=== PATIENT | female | born 1955 | race Caucasian/White ===

== ENCOUNTER 2016-03-18 10:58 | Inpatient (IN) | payer BC ==
[~2016-03-18] VITALS: Ht 157.5 cm; Wt 65.1 kg
[2016-03-18] MEDS ORDERED: ONDANSETRON 4 MG INJ IV STA (12:31)
[2016-03-18] MEDS ORDERED: SOD CHLORIDE 0.9% 1,000 ML IV STA (12:31)
[2016-03-18] MEDS ORDERED: morphine 4 MG/ML VIAL IV STA (12:31)
--- NOTE | 2016-03-18 12:37 | ERA ---
ER Documentation Chief Complaint Date/Time DATE: 03/18/16 TIME: 12:33 Chief Complaint LOWER ABDOMINAL PAIN X3 DAYS WITH DIARRHEA HPI Patient is a 60-year-old -[place] female who is brought in by her daughter who tells me that she was admitted in another facility where she was diagnosed with adenocarcinoma of the sigmoid colon. She was apparently also diagnosed with C. difficile colitis as well as H pylori. She is currently being treated for both with oral antibiotics. She has been brought here for increasing abdominal pain which she describes as being in the lower abdomen with increasing diarrhea. The daughter states she has never had a fever despite all of the above. She says the patient is not eating well however she has not had any nausea or vomiting. There is not been any blood in the stools. They did not start any chemo nor have they seen any oncologist. They said that the initial hospital he went to where they were diagnosed with the adenocarcinoma was not the hospital where they would be receiving treatment which is why they were discharged from the facility. This is the primary facility which they would receive treatment which is why they are here today. Nothing seems to improve her symptoms eating seems to make her symptoms worse. And the remainder of the systems are negative. ROS All systems reviewed and are negative except as per history of present illness. Medications Home Meds Reported Medications Amoxicillin/Potassium Clav (Amox-Clav 875-125 mg Tablet) 875-125 mg Tab, 1 TAB PO BID, #20 TAB 03/18/16 Clarithromycin* (Clarithromycin*) 500 Mg Tablet, 500 MG PO BID, TAB 03/18/16 Metronidazole* (Metronidazole*) 500 Mg Tablet, 500 MG PO TID, TAB 03/18/16 Polyethylene Glycol* (Miralax*) 17 Gm Powd.pack, 17 GM PO DAILY, #30 PACKET 03/18/16 Pantoprazole* (Protonix*) 40 Mg Tablet.dr, 40 MG PO DAILY, TAB 03/18/16 Allergies Allergies: Coded Allergies: No Known Allergy (Unverified , 03/18/16) Physical Exam Vitals Vital Signs Date Time Temp Pulse Resp B/P Pulse Ox O2 Delivery O2 Flow Rate FiO2 03/18/16 11:12 97.7 90 20 150/66 98 Physical Exam Const: [] Well-developed well-nourished -[place]aur[place] female lying on the bed in no acute distress Head: Atraumatic normocephalic Eyes: Normal Conjunctiva ENT: Normal External Ears, Nose and Mouth. Neck: Full range of motion..~ No meningismus. Resp: Clear to auscultation bilaterally Cardio: Regular rate and rhythm, no murmurs Abd: Soft, moderate tenderness to palpation in the left lower quadrant and suprapubic region with rebound noted, no bowel sounds auscultated, no masses Skin: No petechiae or rashes Back: No midline or flank tenderness Ext: No cyanosis, or edema Neur: Awake and alert Psych: Normal Mood and Affect Result Diagram: 03/18/16 1300 03/18/16 1300 Results 24 hrs Laboratory Tests Test 03/18/16 13:00 03/18/16 13:35 Alanine Aminotransferase (ALT/SGPT) 24IU/L Albumin 3.9g/dl Albumin/Globulin Ratio 0.97 Alkaline Phosphatase 65IU/L Anion Gap 19 Aspartate Amino Transf (AST/SGOT) 30IU/L Basophils # 0.010^3/ul Basophils % 0.7% Blood Morphology Comment Blood Urea Nitrogen 10mg/dl Calcium Level 9.1mg/dl Carbon Dioxide Level 25mmol/L Chloride Level 105mmol/L Creatinine 0.62mg/dl Direct Bilirubin 0.00mg/dl Eosinophils # 0.110^3/ul Eosinophils % 2.0% Globulin 4.00g/dl Glucose Level 78mg/dl Hematocrit 39.9% Hemoglobin 13.2g/dl Indirect Bilirubin 0.1mg/dl Lipase 600U/L Lymphocytes # 1.910^3/ul Lymphocytes % 40.6% Mean Corpuscular Hemoglobin 29.7pg Mean Corpuscular Hemoglobin Concent 33.2g/dl Mean Corpuscular Volume 89.3fl Mean Platelet Volume 8.9fl Monocytes # 0.510^3/ul Monocytes % 10.7% Neutrophils # 2.210^3/ul Neutrophils % 46.0% Nucleated Red Blood Cells # 0.010^3/ul Nucleated Red Blood Cells % 0.0/100WBC Platelet Count 87250^3/UL Potassium Level 3.8mmol/L Red Blood Count 4.4610^6/ul Red Cell Distribution Width 15.3% Sodium Level 145mmol/L Total Bilirubin 0.1mg/dl Total Protein 7.9g/dl White Blood Count 4.810^3/ul Urine Bacteria RARE Urine Bilirubin NEGATIVE Urine Clarity CLEAR Urine Color YELLOW Urine Epithelial Cells RARE Urine Glucose NEGATIVE% Urine Hemoglobin TRACE Urine Ketones NEGATIVE Urine Leukocyte Esterase NEGATIVE Urine Microscopic RBC 0-2/HPF Urine Microscopic WBC 0-2/HPF Urine Nitrite NEGATIVE Urine Specific [place] >=1.030 Urine Total Protein NEGATIVE Urine Urobilinogen 0.2 E.U./dL Urine pH 6.5 Current Medications Medications (Trade) Dose Ordered Sig/Malathi Route PRN Reason Start Time Stop Time Status Last Admin Dose Admin Sodium Chloride (NS) 1,000 ml @ 1,000 mls/hr Q1H STAT IV 03/18/16 12:31 03/18/16 13:30 DC 03/18/16 13:47 Morphine Sulfate (morphine) 4 mg ONCE STAT IV 03/18/16 12:31 03/18/16 12:34 DC Ondansetron HCl 4 mg 4 mg ONCE STAT IV 03/18/16 12:31 03/18/16 12:34 DC Ertapenem/Sodium Chloride (Invanz/NS) 100 ml @ 200 mls/hr ONCE ONCE IVPB 03/18/16 13:00 03/18/16 13:29 DC 03/18/16 16:09 IV Flush 10 ml 10 ml STK-MED ONCE .ROUTE 03/18/16 13:36 03/18/16 13:37 DC 03/18/16 13:36 Sodium Chloride (NS) 100 ml @ ud STK-MED ONCE .ROUTE 03/18/16 13:36 03/18/16 13:37 DC 03/18/16 13:36 Iohexol (Omnipaque 300mg/ ml) 150 ml STK-MED ONCE .ROUTE 03/18/16 13:36 03/18/16 13:37 DC 03/18/16 13:36 Procedures/MDM Differential includes but is not limited to toxic C. difficile colitis, symptomatic adenocarcinoma of the colon, bowel obstruction, sepsis, perforated colon, peritonitis CT of the abdomen shows the mass in the rectosigmoid region with some stranding around this area but no perforation or free air. She does not have a bowel obstruction. 1635: Patient's examination is unchanged. I have consulted the hospitalist to have her admitted to the hospital for further evaluation and treatment of her mass. Departure Diagnosis: Primary Impression: Rectal mass Additional Impressions: Diarrhea Qualified Code: A09 - Diarrhea of infectious origin C. difficile colitis Dehydration Breast mass in female Abdominal pain Qualified Code: R10.32 - Left lower quadrant pain Condition: SULEIMAN Rubio Mar 18, 2016 12:37
[2016-03-18] MEDS ORDERED: PANT40TA3 PO (12:53)
[2016-03-18] MEDS ORDERED: POLY17PO6 PO (12:53)
[2016-03-18] MEDS ORDERED: METR500T14 PO (12:56)
[2016-03-18] MEDS ORDERED: AMOX1TAB10 PO (12:57)
[2016-03-18] MEDS ORDERED: CLAR500T PO (12:57)
[2016-03-18] MEDS ORDERED: ERTAPENEM SODIUM 1 GM in SOD CHLORIDE 0.9% 100 ML IVPB ONE (13:00)
[2016-03-18 13:14] LABS: BASOPHILS % 0.7 % (0.0-2.0); EOSINOPHILS # 0.1 10^3/ul (0.0-0.5); HEMATOCRIT 39.9 % (37.0-47.0); HEMOGLOBIN 13.2 g/dl (12.0-16.0); LYMPHOCYTES # 1.9 10^3/ul (0.8-2.9); LYMPHOCYTES % 40.6 % (15.0-51.0); MEAN CORPUSCULAR HEMOGLOBIN 29.7 pg (29.0-33.0); MEAN CORPUSCULAR HGB CONC 33.2 g/dl (32.0-37.0); MEAN CORPUSCULAR VOLUME 89.3 fl (82.0-101.0); MEAN PLATELET VOLUME 8.9 fl (7.4-10.4); MONOCYTE # 0.5 10^3/ul (0.3-0.9); MONOCYTES % 10.7 % (0.0-11.0); NEUTROPHIL # 2.2 10^3/ul (1.6-7.5); PLATELET COUNT 273 10^3/UL (140-440); RED BLOOD COUNT 4.46 10^6/ul (4.20-5.40); RED CELL DISTRIBUTION WIDTH 15.3 % (11.5-14.5); UNCORRECTED WBC 4.8 10^3/ul (4.8-10.8); WHITE BLOOD COUNT 4.8 10^3/ul (4.8-10.8)
[2016-03-18 13:23] LABS: ALBUMIN 3.9 g/dl (3.3-4.9)
[2016-03-18 13:24] LABS: POTASSIUM 3.8 mmol/L (3.5-5.1)
[2016-03-18 13:26] LABS: ALBUMIN/GLOBULIN RATIO 0.97; BILIRUBIN,INDIRECT 0.1 mg/dl (0-1.1); BILIRUBIN,TOTAL 0.1 mg/dl (0.2-1.3); CREATININE 0.62 mg/dl (0.44-1.00); TOTAL PROTEIN 7.9 g/dl (6.1-8.1)
[2016-03-18 13:27] LABS: CALCIUM 9.1 mg/dl (8.4-10.2); CONDITION 1; LH ANALYZER COMMENTS 1
[2016-03-18] MEDS ORDERED: IOHEXOL 300MG/ML 150 ML BTL ONE (13:36)
[2016-03-18] MEDS ORDERED: SOD CHLORIDE 0.9% 100 ML ONE (13:36)
[2016-03-18 14:03] LABS: ADD UMIC YES; URINE BILIRUBIN (Dip) NEGATIVE (NEGATIVE); URINE BLOOD (Dip) TRACE (NEGATIVE); URINE COLOR YELLOW (YELLOW); URINE GLUCOSE (Dip) NEGATIVE (NEGATIVE); URINE KETONES (Dip) NEGATIVE (NEGATIVE); URINE LEUKOCYTE ESTERASE (Dip) NEGATIVE (NEGATIVE); URINE NITRITE (Dip) NEGATIVE (NEGATIVE); URINE TOTAL PROTEIN (Dip) NEGATIVE (NEGATIVE); URINE UROBILINOGEN (Dip) 0.2 E.U./dL (0.1-1.0)
[2016-03-18 14:23] LABS: BACTERIA,URINE RARE; URINE RBCS 0-2 /HPF (0)
--- NOTE | 2016-03-18 14:56 | RADRPT ---
PROCEDURE: CT scan of the abdomen and pelvis with and without IV contrast. CLINICAL INDICATION: Lower abdominal pain for 3 days with diarrhea. History of sigmoid cancer. TECHNIQUE: Thin section axial, coronal and sagittal images were performed through the abdomen and pelvis without contrast and then following the injection of 90 cc of Isovue 370. Low-dose protocol i maging was utilized. One or more of the following dose reduction techniques were used: - Automated exposure control. - Adjustment of the mA and/or kV according to patient size. Use of iterative reconstruction technique. Radiation Dose: CTDI: 15 and DLP: 752 COMPARISON: No. FINDINGS: Soft tissues: There is a 1 x 1.5 cm well marginated mass in the outer left breast. A bilateral malka mogram is recommended for evaluation. Lungs and pleural space:There are peripheral areas of atelectasis in the right left lower lobes. N o pulmonary nodule or alveolar infiltrate is identified. There is no evidence of a pleural effusion . Heart: Normal. No pericardial effusion is identified. The liver, common bile duct and gallbladder: The liver, gallbladder, hepatic and portal veins are no rmal. No intrahepatic biliary ductal dilatation is identified. No hepatic mass is present. Pancreas: Normal. The extrahepatic common bile duct is dilated measuring 8.5 mm. Gastrointestinal: There is no evidence of hiatal hernia. The stomach is incompletely distended and this is thought to account for gastric wall thickening. The small bowel loops are normal. There is fluid in the distal small bowel loops and in the colon. No mechanical small-bowel obstruction is i dentified. There is radiopaque material in the ascending colon and near the cecum. There is fecal m aterial in the ascending and transverse colon. The vermiform appendix is not clearly visualized. Th ere is no evidence of diverticulosis or diverticulitis. There is asymmetry and mucosal thickening in the distal sigmoid and proximal portion of the rectal a mpulla. Further evaluation of this area is recommended. This area can be further evaluated with an MRI of the pelvis for PET CT scan if clinically indicated. There is stranding in the fat adjacent t o the rectal ampulla and proximal sigmoid colon. There is no evidence of microperforation. Kidneys and bladder : Normal. There is no evidence of a solid mass or hydronephrosis involving eith er kidney. The urinary bladder is normal with no bladder wall thickening identified. Adrenal glands: Normal. Spleen: Normal. Lymph nodes: No enlarged periportal, retroperitoneal, mesenteric, pelvic sidewall or inguinal lymph nodes are identified. Reproductive system: The uterus is unremarkable. No abnormal adnexal masses are identified. Bony elements: There are degenerative osteophytes in the thoracic and lumbar spine. No bone metasta sis is identified. There are degenerative changes in the articular facets at L4-5 and L5-S1. Vasculature: There are vascular calcifications in the common iliac arteries and abdominal aorta. Th ere is no evidence of an aneurysm. IMPRESSION: 1. Dilatation of the extrahepatic common bile duct which measures 8.5 mm. No pancreatic masses raya ntified. An MRCP or ERCP may be helpful in further evaluation. 2. There is a mass in the area of the rectosigmoid colon with serosal stranding consistent with a k nown history of sigmoid cancer. More detailed evaluation of the PET CT scan or MRI of the pelvis can be performed if clinically indicated. 3. 1.5 cm mass in the left breast. Further evaluation with a targeted left breast sonogram and/or mammogram is recommended. 4. There are plate-like areas of atelectasis or parenchymal scarring in the bases of the lungs. No pulmonary, bony or hepatic metastases are identified. Findings were phoned to Dr. Barragan. RPTAT:AAJJ Physician Lito Date Time Electronically viewed and signed by Physician Lito on 03/18/2016 14:56 /
[2016-03-18 16:58] VITALS: TEMP 97.9
[2016-03-18] MEDS ORDERED: ONDANSETRON 4 MG INJ IV PRN ×2 (17:00→22:30)
[2016-03-18] MEDS ORDERED: ACETAMINOPHEN 325 MG TAB PO PRN (17:00)
[2016-03-18 18:40] VITALS: BP 134/66; PULSE 85; RESP 18
[2016-03-18 19:02] VITALS: Ht 157.5 cm; Wt 65.1 kg
[2016-03-18 20:34] VITALS: BP 136/69; RESP 21
[2016-03-18] MEDS ORDERED: AMOXICILLIN/CLAV 875 MG TAB PO SCH (21:00)
[2016-03-18] MEDS ORDERED: SOD CHLORIDE 0.9% 1,000 ML IV SCH (22:30)
[2016-03-18] MEDS ORDERED: morphine 2 MG INJ IV PRN (22:30)
[2016-03-18] MEDS: CLARITHROMYCIN 500 MG TAB PO SCH (22:44)
[2016-03-18] MEDS: metroNIDAZOLE 500 MG TAB PO SCH (22:44)
[2016-03-18] MEDS: ONDANSETRON 4 MG INJ IV PRN (23:11)
[2016-03-18] MEDS: FAMOTIDINE 20 MG INJ IV SCH (23:11)
[2016-03-18] MEDS ORDERED: AMOXICILLIN/CLAV 875 MG TAB PO ONE (23:30)
[2016-03-19] MEDS: metroNIDAZOLE 500 MG TAB PO SCH ×3 (06:04→22:11)
[2016-03-19] MEDS: PANTOPRAZOLE (EC) 40 MG TAB PO SCH (06:04)
[2016-03-19 06:08] LABS: POTASSIUM 3.6 mmol/L (3.5-5.1)
[2016-03-19 06:09] LABS: BILIRUBIN,INDIRECT 0.3 mg/dl (0-1.1); BILIRUBIN,TOTAL 0.3 mg/dl (0.2-1.3); CREATININE 0.62 mg/dl (0.44-1.00)
[2016-03-19 06:10] LABS: ALBUMIN/GLOBULIN RATIO 0.9; CALCIUM 8.5 mg/dl (8.4-10.2); TOTAL PROTEIN 6.3 g/dl (6.1-8.1)
[2016-03-19 06:22] LABS: BASOPHILS % 0.8 % (0.0-2.0); EOSINOPHILS # 0.1 10^3/ul (0.0-0.5); EOSINOPHILS % 2.7 % (0.0-7.0); HEMATOCRIT 35.4 % (37.0-47.0); LYMPHOCYTES # 1.8 10^3/ul (0.8-2.9); LYMPHOCYTES % 45.6 % (15.0-51.0); MEAN CORPUSCULAR HEMOGLOBIN 30.1 pg (29.0-33.0); MEAN CORPUSCULAR HGB CONC 33.9 g/dl (32.0-37.0); MEAN PLATELET VOLUME 8.9 fl (7.4-10.4); MONOCYTE # 0.4 10^3/ul (0.3-0.9); MONOCYTES % 10.7 % (0.0-11.0); NEUTROPHIL # 1.6 10^3/ul (1.6-7.5); NEUTROPHILS % 40.2 % (39.0-77.0); PLATELET COUNT 239 10^3/UL (140-440); RED BLOOD COUNT 3.98 10^6/ul (4.20-5.40)
[2016-03-19 06:27] LABS: CONDITION 1; LH ANALYZER COMMENTS 1
[2016-03-19 08:24] VITALS: BP 129/63; RESP 16
--- NOTE | 2016-03-19 08:42 | HP ---
DATE OF ADMISSION: 03/18/2016 TIME SEEN: 2500 CHIEF COMPLAINT: Abdominal pain and diarrhea. HISTORY OF PRESENT ILLNESS: The patient is a 60-year-old female with a history of recently diagnose d colon cancer, C difficile, sigmoid microperforation, left breast mass, and subclinical hypothyroid ism who presented to the emergency department with abdominal pain and diarrhea. The patient was rec ently admitted at the outside facility where she was diagnosed with adenocarcinoma of the sigmoid co keith as well as C diff and H pylori. The patient was accompanied with her daughter who provided hist ory to the ER physician. Currently, the patient also has decreased appetite and generalized weaknes s. Also reported nausea, but no vomiting. The patient has not been started on chemo nor does she h ave an oncologist. Reportedly, in the initial hospital that the patient was diagnosed with cancer, the family said were not going to be where she was going to get treatment, and as such, the patient either left the hospital or discharged, and she came here to [facility] for evaluation. They also stated t his would be the hospital where she was capitated at, and they think this is where she should receiv e the treatment and that is why they are here. When she presented to the ER, her blood pressure was 150/66, heart rate 90, respiratory rate 20, tem perature 97.7, oxygen saturation 98% on room air. LABORATORY: Sodium 145. Otherwise, CBC and CMP are within normal limits. Her lipase is 600. IMAGING: CT abdomen and pelvis with and without IV contrast shows dilatation of the extrahepatic co mmon bile duct which measures 8.5 mm. There is a mass in the area of the rectosigmoid colon with se sera stranding consistent with a known history of sigmoid cancer. Also, a 1.5 cm mass in the left breast was noted. Also, there are plate-like areas of atelectasis or parenchymal scarring in the ba se of the lungs noted with no pulmonary, bony, or hepatic metastasis identified. REVIEW OF SYSTEMS: A 12-point review was performed, negative except as mentioned in the HPI. PAST MEDICAL HISTORY: As per HPI. PAST SURGICAL HISTORY: Cholecystectomy and appendectomy. SOCIAL HISTORY: Denied a history of tobacco, alcohol, or illicit drug use. ALLERGIES: NO KNOWN DRUG ALLERGIES. HOME MEDICATIONS: 1. Augmentin. 2. Clarithromycin 3. Flagyl. 4. Protonix. 5. MiraLax. PHYSICAL EXAMINATION: VITAL SIGNS: Stable. GENERAL: The patient appears somewhat week/sleepy, but arousable, not in any acute distress. HEENT: No obvious head deformity. Pupils are reactive to light. Extraocular muscles intact. CARDIOVASCULAR: Regular rate and rhythm. No extra sounds. LUNGS: Clear. ABDOMEN: Soft. There is tenderness to palpation diffusely, but mainly in the left lower quadrant a edna. No rigidity. There are positive bowel sounds. EXTREMITIES: No edema. LABORATORY: Pertinent positives as mentioned in the HPI. IMAGING: CT abdomen and pelvis with and without IV contrast with results as mentioned in the HPI. IMPRESSION: 1. Recently diagnosed colon cancer. 2. Recently diagnosed Clostridium difficile colitis. 3. Diarrhea, secondary to Clostridium difficile. 4. Abdominal pain, secondary to colon cancer and Clostridium difficile and possibly pancreatitis. 5. Acute pancreatitis, with a lipase of 600. 6. Left breast mass. 7. Recently diagnosed Helicobacter pylori, currently undergoing treatment. PLAN: Will place on oncology consult. She will also be treated for C diff and continued with her h ome antibiotic to finish her H pylori treatment. We will provide pain medication and antiemetics as needed. The patient has already been initiated on a diet, so if she tolerates it, she will be cont inued, but if not, we are just going to hold and keep her n.p.o., especially given the elevated lipa se and the concern for pancreatitis. Her left breast mass along with her colon cancer is to be addr essed by oncologist. We will provide pain medication and antiemetics as needed. Further workup and management per clinical course. Dictated By: JACKIE MARQUES/JIGAR Conf#: [id number] DID#: [id number]
[2016-03-19] MEDS: POLYETHYLENE GLYCOL 17 GM PACKET PO SCH (09:05)
[2016-03-19] MEDS: CLARITHROMYCIN 500 MG TAB PO SCH ×2 (09:05→20:59)
[2016-03-19] MEDS: AMOXICILLIN/CLAV 875 MG TAB PO SCH ×2 (09:06→20:59)
[2016-03-19] MEDS: FAMOTIDINE 20 MG INJ IV SCH (09:06)
--- NOTE | 2016-03-19 13:59 | PN ---
Date/Time of Note Date/Time of Note DATE: 03/19/16 TIME: 13:53 Assessment/Plan VTE Prophylaxis VTE Prophylaxis Intervention: LMWH Lines/Catheters IV Catheter Type (from Nrsg): Saline Lock Urinary Cath still in place: No Assessment/Plan Assessment/Plan 1. Abdominal pain - 2/2 colon cancer (adenocarcinoma) and C diff colitis - will consult hem/onc and surgery, monitor acute changes, pain management, bowel regimen 2. Clostridium difficile colitis - continue with flagyl, precautions 3. Acute pancreatitis, with a lipase of 600. - trend - IVF 4. Left breast mass - possible mets - will possibly need separate bx - differ to surgery 5. Recently diagnosed Helicobacter pylori, currently undergoing treatment. 6. GI ppx - ppi 7. DVT ppx - lovenox dispo - f/u recs, monitor acute changes, as per clinical course. this progress note took greater than 60 minutes to complete Subjective 24 Hr Interval Summary Free Text/Dictation Patient was admitted overnight for abdominal pain to known colonic mass - adenocarcinoma diagnosed at [facility]. The patient is still having abdominal pain. I spoke to the daughter at length about the care plan. She understands that there is stepwise process with the patient's current diagnosis. 30 minutes spent. Exam/Review of Systems Vital Signs Vitals Vital Signs Date Time Temp Pulse Resp B/P Pulse Ox O2 Delivery O2 Flow Rate FiO2 03/19/16 08:24 98.7 74 16 129/63 100 03/18/16 18:40 Room Air Intake and Output 03/18/16 03/18/16 03/19/16 15:00 23:00 07:00 Intake Total 1350 ml Balance 1350 ml Exam Gen Will: abdominal pain, AAOx4 HEENT: NC/AT, PERRLA, EOMI, no pharyngeal erythema, no tonsillar exudates, no lymphadenopathy, no JVD, no carotid bruits NECK: supple, no thyromegaly THORAX: symmetrical, no obvious deformities CV: S1S2, RRR, no M/G/R Lungs: CTAB no W/C/R/R Abd: soft, tenderness to deep palpation/ND, +BS, no rebound, no guarding, neg HSM EXT: no edema, no ecchymosis, no clubbing, FROM Neuro: CN II-XII grossly intact, no focal deficits Psych: fair mood and affect Skin: C/D/I Results Result Diagram: 03/19/16 0530 03/19/16 0530 Results 24 hrs Laboratory Tests Test 03/19/16 05:30 Alanine Aminotransferase (ALT/SGPT) 25 Albumin 3.0 L Albumin/Globulin Ratio 0.90 Alkaline Phosphatase 52 Anion Gap 14 Aspartate Amino Transf (AST/SGOT) 26 Basophils # 0.0 Basophils % 0.8 Blood Morphology Comment Blood Urea Nitrogen 7 Calcium Level 8.5 Carbon Dioxide Level 25 Chloride Level 109 Creatinine 0.62 Direct Bilirubin 0.00 Eosinophils # 0.1 Eosinophils % 2.7 Globulin 3.30 H Glucose Level 94 Hematocrit 35.4 L Hemoglobin 12.0 Indirect Bilirubin 0.3 Lymphocytes # 1.8 Lymphocytes % 45.6 Mean Corpuscular Hemoglobin 30.1 Mean Corpuscular Hemoglobin Concent 33.9 Mean Corpuscular Volume 89.0 Mean Platelet Volume 8.9 Monocytes # 0.4 Monocytes % 10.7 Neutrophils # 1.6 Neutrophils % 40.2 Nucleated Red Blood Cells # 0.0 Nucleated Red Blood Cells % 0.0 Platelet Count 239 Potassium Level 3.6 Red Blood Count 3.98 L Red Cell Distribution Width 15.0 H Sodium Level 144 Total Bilirubin 0.3 Total Protein 6.3 # White Blood Count 4.0 L Medications Medications Current Medications Polyethylene Glycol (Miralax) 17 gm DAILY PO Last administered on 03/19/16 09: 05; Admin Dose 17 GM; Start 03/19/16 at 09:00 Pantoprazole (Protonix Tab) 40 mg DAILY@06 PO Last administered on 03/19/16 06: 04; Admin Dose 40 MG; Start 03/19/16 at 06:00; Stop 03/23/16 at 06:01 Clarithromycin (Biaxin) 500 mg Q12 PO Last administered on 03/19/16 09:05; Admin Dose 500 MG; Start 03/18/16 at 21:00; Stop 03/23/16 at 20:59 Metronidazole (Flagyl) 500 mg Q8 PO Last administered on 03/19/16 06:04; Admin Dose 500 MG; Start 03/18/16 at 22:00; Stop 03/23/16 at 21:59 Famotidine (Pepcid Iv) 20 mg Q12 IV Last administered on 03/19/16 09:06; Admin Dose 20 MG; Start 03/18/16 at 22:30 Acetaminophen (Tylenol Tab) 650 mg Q6H PRN PO PAIN AND OR ELEVATED TEMP; Start 03/18/16 at 22:30 Morphine Sulfate (morphine) 2 mg Q4H PRN IV PAIN LEVEL 7-10; Start 03/18/16 at 22:30 Ondansetron HCl (Zofran Inj) 4 mg Q6H PRN IV NAUSEA AND/OR VOMITING Last administered on 03/18/16 23:11; Admin Dose 4 MG; Start 03/18/16 at 23:00 Amoxicillin/ Clavulanate Potassium (Augmentin) 875 mg Q12 PO Last administered on 03/19/16 09:06; Admin Dose 875 MG; Start 03/19/16 at 09:00; Stop 03/24/16 at 09:01 TC CANELA MD Mar 19, 2016 13:59
--- NOTE | 2016-03-19 15:42 | CONS ---
Date/Time of Note Date/Time of Note DATE: 03/19/16 TIME: 15:32 Assessment/Plan Assessment/Plan Chief Complaint/Hosp Course 60 yo with 1. Adenocarcinoma of the sigmoid colon - pathology reviewed. Low probability of MSI. Pt will need surgical evaluation. -Depending on surgical path and if there is indeed evidence of lymph node positivity or perforation, pt will need adjuvant chemotherapy. 2. 1.0 x 1.5 cm well marginated mass in the outer left breast. -Ultrasound guided bx ordered of the mass. This is likely a separate process and unlikely metastatic disease from the sigmoid colon. 3. Thyroid mass -f/u FNA done at [facility] Problems: Consultation Date/Type/Reason Admit Date/Time Mar 18, 2016 at 16:38 Date of Consultation: Mar 19, 2016 Type of Consultation: oncology Reason for Consultation colon cancer Referring Provider: TC CANELA MD Hx of Present Illness 60-year-old female who presented to [facility] with abdominal cramping and diarrhea with nausea and vomiting. Pt was diagnosed with C diff and treated and was told she had a sigmoid microperforation. Pt was taken for EGD and colonoscopy. The colonoscope could only pass up to 25 cm and then was obstructed by a mass. Bx of this mass revealed a sigmoid adenocarcinoma. During this workup she was found with a L breast mass and a thyroid mass. An FNA has been done on the thyroid mass.. The results are currently pending. Currently, the patient also has decreased appetite and generalized weakness. Constitutional: no complaints Eyes: no complaints ENT: no complaints, pain Cardiovascular: no complaints Gastrointestinal: decreased appetite, nausea, pain Genitourinary: no complaints Musculoskeletal: no complaints Skin: no complaints Neurologic: no complaints Past Medical History left breast mass subclinical hypothyroidism sigmoid colon adenocarcinoma memory impairment Past Surgical History Cholecystectomy and appendectomy. Family History Significant Family History: no pertinent family hx Social History Alcohol Use: none Smoking Status: Never smoker Drug Use: none Exam/Review of Systems Vital Signs Vitals Vital Signs Date Time Temp Pulse Resp B/P Pulse Ox O2 Delivery O2 Flow Rate FiO2 03/19/16 08:24 98.7 74 16 129/63 100 03/18/16 18:40 Room Air Intake and Output 03/18/16 03/18/16 03/19/16 15:00 23:00 07:00 Intake Total 1350 ml Balance 1350 ml Exam Constitutional: alert, oriented, well developed Psych: no complaints Head: atraumatic, normocephalic Eyes: nl conjunctiva ENMT: nl external ears & nose Neck: non-tender, supple Respiratory: clear to auscultation, normal air movement Cardiovascular: regular rate and rhythm Gastrointestinal: non-tender, soft Musculoskeletal: nl extremities to inspection, nl gait and stance Extremities: normal pulses Neurological: PROCEDURE MANAGER II-XII intact Results Result Diagram: 03/19/1630 03/19/16 0530 Results 24 hrs Laboratory Tests Test 03/19/16 05:30 Alanine Aminotransferase (ALT/SGPT) 25 Albumin 3.0 L Albumin/Globulin Ratio 0.90 Alkaline Phosphatase 52 Anion Gap 14 Aspartate Amino Transf (AST/SGOT) 26 Basophils # 0.0 Basophils % 0.8 Blood Morphology Comment Blood Urea Nitrogen 7 Calcium Level 8.5 Carbon Dioxide Level 25 Chloride Level 109 Creatinine 0.62 Direct Bilirubin 0.00 Eosinophils # 0.1 Eosinophils % 2.7 Globulin 3.30 H Glucose Level 94 Hematocrit 35.4 L Hemoglobin 12.0 Indirect Bilirubin 0.3 Lymphocytes # 1.8 Lymphocytes % 45.6 Mean Corpuscular Hemoglobin 30.1 Mean Corpuscular Hemoglobin Concent 33.9 Mean Corpuscular Volume 89.0 Mean Platelet Volume 8.9 Monocytes # 0.4 Monocytes % 10.7 Neutrophils # 1.6 Neutrophils % 40.2 Nucleated Red Blood Cells # 0.0 Nucleated Red Blood Cells % 0.0 Platelet Count 239 Potassium Level 3.6 Red Blood Count 3.98 L Red Cell Distribution Width 15.0 H Sodium Level 144 Total Bilirubin 0.3 Total Protein 6.3 # White Blood Count 4.0 L Medications Medications Current Medications Polyethylene Glycol (Miralax) 17 gm DAILY PO Last administered on 03/19/16 09: 05; Admin Dose 17 GM; Start 03/19/16 at 09:00 Pantoprazole (Protonix Tab) 40 mg DAILY@06 PO Last administered on 03/19/16 06: 04; Admin Dose 40 MG; Start 03/19/16 at 06:00; Stop 03/23/16 at 06:01 Clarithromycin (Biaxin) 500 mg Q12 PO Last administered on 03/19/16 09:05; Admin Dose 500 MG; Start 03/18/16 at 21:00; Stop 03/23/16 at 20:59 Metronidazole (Flagyl) 500 mg Q8 PO Last administered on 03/19/16 15:18; Admin Dose 500 MG; Start 03/18/16 at 22:00; Stop 03/23/16 at 21:59 Famotidine (Pepcid Iv) 20 mg Q12 IV Last administered on 03/19/16 09:06; Admin Dose 20 MG; Start 03/18/16 at 22:30 Acetaminophen (Tylenol Tab) 650 mg Q6H PRN PO PAIN AND OR ELEVATED TEMP; Start 03/18/16 at 22:30 Morphine Sulfate (morphine) 2 mg Q4H PRN IV PAIN LEVEL 7-10; Start 03/18/16 at 22:30 Ondansetron HCl (Zofran Inj) 4 mg Q6H PRN IV NAUSEA AND/OR VOMITING Last administered on 03/18/16 23:11; Admin Dose 4 MG; Start 03/18/16 at 23:00 Amoxicillin/ Clavulanate Potassium (Augmentin) 875 mg Q12 PO Last administered on 03/19/16 09:06; Admin Dose 875 MG; Start 03/19/16 at 09:00; Stop 03/24/16 at 09:01 Enoxaparin Sodium (Lovenox) 40 mg DAILY SC ; Start 03/20/16 at 09:00 ANA SHARP M.D. Mar 19, 2016 15:42
[2016-03-19 19:40] VITALS: BP 127/60; RESP 20
--- NOTE | 2016-03-19 23:38 | CONS ---
Date/Time of Note Date/Time of Note DATE: 03/19/16 TIME: 23:38 Consultation Date/Type/Reason Admit Date/Time Mar 18, 2016 at 16:38 Constitutional: no complaints Eyes: no complaints ENT: no complaints, pain Cardiovascular: no complaints Gastrointestinal: decreased appetite, nausea, pain Genitourinary: no complaints Musculoskeletal: no complaints Skin: no complaints Neurologic: no complaints Psychological: no complaints Social History Alcohol Use: none Smoking Status: Never smoker Drug Use: none Exam/Review of Systems Vital Signs Vitals Vital Signs Date Time Temp Pulse Resp B/P Pulse Ox O2 Delivery O2 Flow Rate FiO2 03/19/16 19:40 98.8 81 20 127/60 94 03/18/16 18:40 Room Air Intake and Output 03/18/16 03/18/16 03/19/16 15:00 23:00 07:00 Intake Total 1350 ml Balance 1350 ml Results Result Diagram: 03/19/16 0530 03/19/16 0530 Results 24 hrs Laboratory Tests Test 03/19/16 05:30 Alanine Aminotransferase (ALT/SGPT) 25 Albumin 3.0 L Albumin/Globulin Ratio 0.90 Alkaline Phosphatase 52 Anion Gap 14 Aspartate Amino Transf (AST/SGOT) 26 Basophils # 0.0 Basophils % 0.8 Blood Morphology Comment Blood Urea Nitrogen 7 Calcium Level 8.5 Carbon Dioxide Level 25 Chloride Level 109 Creatinine 0.62 Direct Bilirubin 0.00 Eosinophils # 0.1 Eosinophils % 2.7 Globulin 3.30 H Glucose Level 94 Hematocrit 35.4 L Hemoglobin 12.0 Indirect Bilirubin 0.3 Lymphocytes # 1.8 Lymphocytes % 45.6 Mean Corpuscular Hemoglobin 30.1 Mean Corpuscular Hemoglobin Concent 33.9 Mean Corpuscular Volume 89.0 Mean Platelet Volume 8.9 Monocytes # 0.4 Monocytes % 10.7 Neutrophils # 1.6 Neutrophils % 40.2 Nucleated Red Blood Cells # 0.0 Nucleated Red Blood Cells % 0.0 Platelet Count 239 Potassium Level 3.6 Red Blood Count 3.98 L Red Cell Distribution Width 15.0 H Sodium Level 144 Total Bilirubin 0.3 Total Protein 6.3 # White Blood Count 4.0 L Medications Medications Current Medications Polyethylene Glycol (Miralax) 17 gm DAILY PO Last administered on 03/19/16t 09: 05; Admin Dose 17 GM; Start 03/19/16 at 09:00 Pantoprazole (Protonix Tab) 40 mg DAILY@06 PO Last administered on 03/19/16 06: 04; Admin Dose 40 MG; Start 03/19/16 at 06:00; Stop 03/23/16 at 06:01 Clarithromycin (Biaxin) 500 mg Q12 PO Last administered on 03/19/16 20:59; Admin Dose 500 MG; Start 03/18/16 at 21:00; Stop 03/23/16 at 20:59 Metronidazole (Flagyl) 500 mg Q8 PO Last administered on 03/19/16 22:11; Admin Dose 500 MG; Start 03/18/16 at 22:00; Stop 03/23/16 at 21:59 Acetaminophen (Tylenol Tab) 650 mg Q6H PRN PO PAIN AND OR ELEVATED TEMP; Start 03/18/16 at 22:30 Morphine Sulfate (morphine) 2 mg Q4H PRN IV PAIN LEVEL 7-10; Start 03/18/16 at 22:30 Ondansetron HCl (Zofran Inj) 4 mg Q6H PRN IV NAUSEA AND/OR VOMITING Last administered on 03/18/16 23:11; Admin Dose 4 MG; Start 03/18/16 at 23:00 Amoxicillin/ Clavulanate Potassium (Augmentin) 875 mg Q12 PO Last administered on 03/19/16 20:59; Admin Dose 875 MG; Start 03/19/16 at 09:00; Stop 03/24/16 at 09:01 Enoxaparin Sodium (Lovenox) 40 mg DAILY SC ; Start 03/20/16 at 09:00 LINETTE RODRIGUEZ MD Mar 19, 2016 23:38
[2016-03-20] MEDS: metroNIDAZOLE 500 MG TAB PO SCH ×3 (05:35→22:12)
[2016-03-20] MEDS: PANTOPRAZOLE (EC) 40 MG TAB PO SCH (05:35)
[2016-03-20 08:53] VITALS: BP 141/69; RESP 18
[2016-03-20] MEDS: AMOXICILLIN/CLAV 875 MG TAB PO SCH ×2 (09:09→20:44)
[2016-03-20] MEDS: CLARITHROMYCIN 500 MG TAB PO SCH ×2 (09:09→20:44)
[2016-03-20] MEDS: ENOXAPARIN 40 MG/0.4 ML SYG SC SCH (09:09)
[2016-03-20] MEDS: POLYETHYLENE GLYCOL 17 GM PACKET PO SCH (09:10)
--- NOTE | 2016-03-20 13:30 | PN ---
Date/Time of Note Date/Time of Note DATE: 03/20/16 TIME: 13:24 Assessment/Plan VTE Prophylaxis VTE Prophylaxis Intervention: LMWH Lines/Catheters IV Catheter Type (from Nrs): Saline Lock Urinary Cath still in place: No Assessment/Plan Assessment/Plan 1. Abdominal pain - 2/2 colon cancer (adenocarcinoma) and C diff colitis - appreciate consult hem/onc and surgery, monitor acute changes, pain management, bowel regimen 2. Clostridium difficile colitis - continue with flagyl, precautions 3. Acute pancreatitis, with a lipase of 600. - trend - IVF 4. Left breast mass - possible mets -bx by surgery - differ to surgery 5. Recently diagnosed Helicobacter pylori, currently undergoing treatment. 6. GI ppx - ppi 7. DVT ppx - lovenox dispo - f/u recs, monitor acute changes, as per clinical course. Awaiting records - monitor acute changes this progress note took greater than 50 minutes to complete Subjective 24 Hr Interval Summary Free Text/Dictation Patient states that she still has abdominal pain, but improved from yesterday. Her stool is watery/soft, but no blood noted. I spoke to her and the daughter about the care plan. they understand that it's a step by step process in order to get everything on the same page, before making a decision on treatment modalities, i.e. surgery or chemo. 30 minutes spent. Exam/Review of Systems Vital Signs Vitals Vital Signs Date Time Temp Pulse Resp B/P Pulse Ox O2 Delivery O2 Flow Rate FiO2 03/20/16 08:53 98.6 79 18 141/69 96 03/18/16 18:40 Room Air Intake and Output 03/19/16 03/19/16 03/20/16 15:00 23:00 07:00 Intake Total 400 ml 840 ml 300 ml Balance 400 ml 840 ml 300 ml Exam Gen Will: abdominal pain - improving, AAOx4 HEENT: NC/AT, PERRLA, EOMI, no pharyngeal erythema, no tonsillar exudates, no lymphadenopathy, no JVD, no carotid bruits NECK: supple, no thyromegaly THORAX: symmetrical, no obvious deformities CV: S1S2, RRR, no M/G/R Lungs: CTAB no W/C/R/R Abd: soft, tenderness to deep palpation/ND, +BS, no rebound, no guarding, neg HSM EXT: no edema, no ecchymosis, no clubbing, FROM Neuro: CN II-XII grossly intact, no focal deficits Psych: fair mood and affect Skin: C/D/I Results Result Diagram: 03/19/1630 03/19/1630 Medications Medications Current Medications Polyethylene Glycol (Miralax) 17 gm DAILY PO Last administered on 03/20/16 09: 10; Admin Dose 17 GM; Start 03/19/16 at 09:00 Pantoprazole (Protonix Tab) 40 mg DAILY@06 PO Last administered on 03/20/16 05: 35; Admin Dose 40 MG; Start 03/19/16 at 06:00; Stop 03/23/16 at 06:01 Clarithromycin (Biaxin) 500 mg Q12 PO Last administered on 03/20/16 09:09; Admin Dose 500 MG; Start 03/18/16 at 21:00; Stop 03/23/16 at 20:59 Metronidazole (Flagyl) 500 mg Q8 PO Last administered on 03/20/16 05:35; Admin Dose 500 MG; Start 03/18/16 at 22:00; Stop 03/23/16 at 21:59 Acetaminophen (Tylenol Tab) 650 mg Q6H PRN PO PAIN AND OR ELEVATED TEMP; Start 03/18/16 at 22:30 Morphine Sulfate (morphine) 2 mg Q4H PRN IV PAIN LEVEL 7-10; Start 03/18/16 at 22:30 Ondansetron HCl (Zofran Inj) 4 mg Q6H PRN IV NAUSEA AND/OR VOMITING Last administered on 03/18/16 23:11; Admin Dose 4 MG; Start 03/18/16 at 23:00 Amoxicillin/ Clavulanate Potassium (Augmentin) 875 mg Q12 PO Last administered on 03/20/16 09:09; Admin Dose 875 MG; Start 03/19/16 at 09:00; Stop 03/24/16 at 09:01 Enoxaparin Sodium (Lovenox) 40 mg DAILY SC Last administered on 03/20/16 09:09 ; Admin Dose 40 MG; Start 03/20/16 at 09:00 TC CANELA MD Mar 20, 2016 13:30
--- NOTE | 2016-03-20 14:18 | CONS ---
DATE OF ADMISSION: 03/18/2016 DATE OF CONSULTATION: 03/19/2016 TYPE OF CONSULTATION: Palliative care. 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 Apparently, she had a biop sy confirmed diagnosis there, but we have no medical records. She also has a left breast mass which was not biopsied. She was transferred here once again for ongoing treatment and my role is to speak to family members and to just assist if there are any pain management issues and to be supportive f or family members while here. It is certainly not to open up discussion in terms of level of care. She is a very pleasant female. Family members are at her bedside. They are all very educated and the y have obviously done some research insofar as her diagnosis. The patient currently states she has some occasional discomfort in her abdomen, but she is stoic and she has refused to take any pain med ication. She describes it in her pelvic region without radiation, without nausea, vomiting associat ed with it. Grade 4/10, as a gnawing type of discomfort which comes and goes in so far as severity, but low grade pain all the time. At the time I evaluated her she was on low doses of morphine, but apparently she refused to take that because once again she does not want to take opioids. 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 CURRENT MEDICATIONS: Please refer to reconciliation sheet. ALLERGIES: SHE HAS NO KNOWN DRUG ALLERGIES. MAJOR MEDICAL PROBLEMS IN THE PAST: Completely as per history of present illness. SOCIAL HISTORY: Nonsmoker, nondrinker, registered nurse. FAMILY HISTORY: Noncontributory towards this hospitalization. REVIEW OF SYSTEMS: A 12-point review of systems essentially unremarkable. ASSESSMENT AND PLAN: I have had an extensive conversation with the patient and with her family memb ers at the bedside. They are anxious to begin any treatment which was recommended by Dr. Salas and Dr. Sutton. I have emphasized that this is a very good health delivery team and she will get excell ent care while here. I will follow closely. At the time of this dictation she is being scheduled to have a left breast biopsy. Dictated By: JUN HUBER MD, LP/JIGAR Conf#: [id number] DID#: [id number]
[2016-03-20] MEDS ORDERED: LIDOCAINE 1%/EPI (MDV) 20 ML INJ INJ STA (14:21)
--- NOTE | 2016-03-20 14:30 | CONS ---
Date/Time of Note Date/Time of Note DATE: 03/20/16 TIME: 14:28 Assessment/Plan Assessment/Plan Chief Complaint/Hosp Course 60 yo with 1. Adenocarcinoma of the sigmoid colon - pathology reviewed. Low probability of MSI. Pt will need surgical evaluation. -Depending on surgical path and if there is indeed evidence of lymph node positivity or perforation, pt will need adjuvant chemotherapy. 2. 1.0 x 1.5 cm well marginated mass in the outer left breast. -Ultrasound guided bx ordered of the mass. This is likely a separate process and unlikely metastatic disease from the sigmoid colon. bx to be done today by Dr. Sutton 3. Thyroid mass -f/u FNA done at [facility] Approximately 40 min were spent at patient's bedside and in coordination of her care Problems: Consultation Date/Type/Reason Admit Date/Time Mar 18, 2016 at 16:38 Initial Consult Date 03/19/16 Type of Consultation: oncology Reason for Consultation breast mass, sigmoid colon cancer Referring Provider: TC CANELA MD 24 HR Interval Summary Free Text/Dictation no acute overnight events. pt to have breast bx today Exam/Review of Systems Vital Signs Vitals Vital Signs Date Time Temp Pulse Resp B/P Pulse Ox O2 Delivery O2 Flow Rate FiO2 03/20/16 08:53 98.6 79 18 141/69 96 03/18/16 18:40 Room Air Intake and Output 03/19/16 03/19/16 03/20/16 15:00 23:00 07:00 Intake Total 400 ml 840 ml 300 ml Balance 400 ml 840 ml 300 ml Exam Constitutional: alert, oriented Psych: no complaints Head: atraumatic, normocephalic Eyes: nl conjunctiva ENMT: nl external ears & nose Neck: non-tender, supple Respiratory: clear to auscultation, normal air movement Cardiovascular: nl pulses, regular rate and rhythm Musculoskeletal: nl extremities to inspection, nl gait and stance Extremities: normal pulses Neurological: [employer] II-XII intact Results Result Diagram: 03/19/1630 03/19/16 0530 Medications Medications Current Medications Polyethylene Glycol (Miralax) 17 gm DAILY PO Last administered on 03/20/16 09: 10; Admin Dose 17 GM; Start 03/19/16 at 09:00 Pantoprazole (Protonix Tab) 40 mg DAILY@06 PO Last administered on 03/20/16 05: 35; Admin Dose 40 MG; Start 03/19/16 at 06:00; Stop 03/23/16 at 06:01 Clarithromycin (Biaxin) 500 mg Q12 PO Last administered on 03/20/16 09:09; Admin Dose 500 MG; Start 03/18/16 at 21:00; Stop 03/23/16 at 20:59 Metronidazole (Flagyl) 500 mg Q8 PO Last administered on 03/20/16 14:06; Admin Dose 500 MG; Start 03/18/16 at 22:00; Stop 03/23/16 at 21:59 Acetaminophen (Tylenol Tab) 650 mg Q6H PRN PO PAIN AND OR ELEVATED TEMP; Start 03/18/16 at 22:30 Morphine Sulfate (morphine) 2 mg Q4H PRN IV PAIN LEVEL 7-10; Start 03/18/16 at 22:30 Ondansetron HCl (Zofran Inj) 4 mg Q6H PRN IV NAUSEA AND/OR VOMITING Last administered on 03/18/16 23:11; Admin Dose 4 MG; Start 03/18/16 at 23:00 Amoxicillin/ Clavulanate Potassium (Augmentin) 875 mg Q12 PO Last administered on 03/20/16 09:09; Admin Dose 875 MG; Start 03/19/16 at 09:00; Stop 03/24/16 at 09:01 Enoxaparin Sodium (Lovenox) 40 mg DAILY SC Last administered on 03/20/16 09:09 ; Admin Dose 40 MG; Start 03/20/16 at 09:00 ANA SHARP M.D. Mar 20, 2016 14:30
[2016-03-20] MEDS ORDERED: PEG/ELECTROLYTES 4L BTL PO ONE (19:30)
[2016-03-20] MEDS: ACETAMINOPHEN 325 MG TAB PO PRN (20:44)
[2016-03-20] MEDS: ONDANSETRON 4 MG INJ IV PRN (20:44)
--- NOTE | 2016-03-20 21:44 | OPR ---
Date/Time of Note Date/Time of Note DATE: 03/20/16 TIME: 21:44 Operative Report Procedure Date: Mar 20, 2016 Preoperative Diagnosis Left breast mass Postoperative Diagnosis Same Operation Performed 1. Core needle multiple biopsies of left breast mass 2. Ultrasound guidance and interpretation Surgeon: LINETTE RODRIGUEZ MD Anesthesia: other (local) Estimated Blood Loss: none Specimens Multiple core biopsies of the left breast lesion Tubes/Drains None Complications: None Pt Condition Post Procedure: stable Disposition: other (in her own room) Indications Per notes R/B/A reviewed with patient and daughter as per usual and customary Operative Findings Ultrasound findings: Ultrasound was used to investigate the left breast. The lesion was identified in the left lateral lower quadrant and using core needle biopsy, multiple samples were obtained under ultrasound guidance. Procedure Description Patient was placed supine on her own bed. All pressure points were well-padded as on her bed. Timeout was performed. Left breast was prepped and draped sterilely. Local anesthetic was injected into the lateral breast and an incision was made with an 11 blade. Core needle automatic biopsy instrument was used to obtain the biopsies using the palpation of the mass and also using ultrasound guidance. Multiple biopsies were obtained in this fashion placed in formaldehyde and sent to pathology. Dressing was placed. There was no bleeding. Patient tolerated procedure well. LINETTE RODRIGUEZ MD Mar 20, 2016 21:44
--- NOTE | 2016-03-20 21:44 | PN ---
Date/Time of Note Date/Time of Note DATE: 03/20/16 TIME: 21:44 Assessment/Plan Lines/Catheters IV Catheter Type (from [facility]): Peripheral IV Purvis in Place (from [facility]): No Exam/Review of Systems Vital Signs Vitals Vital Signs Date Time Temp Pulse Resp B/P Pulse Ox O2 Delivery O2 Flow Rate FiO2 03/20/16 08:53 98.6 79 18 141/69 96 03/18/16 18:40 Room Air Intake and Output 03/19/16 03/19/16 03/20/16 15:00 23:00 07:00 Intake Total 400 ml 840 ml 300 ml Balance 400 ml 840 ml 300 ml Results Result Diagram: 03/19/16 0530 03/19/16 0530 LINETTE RODRIGUEZ MD Mar 20, 2016 21:44
[2016-03-21] MEDS: metroNIDAZOLE 500 MG TAB PO SCH ×3 (05:19→21:45)
[2016-03-21] MEDS: PANTOPRAZOLE (EC) 40 MG TAB PO SCH (05:19)
[2016-03-21 07:49] VITALS: BP 136/73; RESP 18
[2016-03-21] MEDS: POLYETHYLENE GLYCOL 17 GM PACKET PO SCH (09:00)
[2016-03-21] MEDS: ENOXAPARIN 40 MG/0.4 ML SYG SC SCH (09:00)
[2016-03-21] MEDS: AMOXICILLIN/CLAV 875 MG TAB PO SCH ×2 (09:24→21:45)
[2016-03-21] MEDS: CLARITHROMYCIN 500 MG TAB PO SCH ×2 (09:24→21:45)
[2016-03-21 10:10] LABS: BASOPHILS % 0.6 % (0.0-2.0); EOSINOPHILS # 0.1 10^3/ul (0.0-0.5); EOSINOPHILS % 1.9 % (0.0-7.0); HEMATOCRIT 38.2 % (37.0-47.0); HEMOGLOBIN 12.9 g/dl (12.0-16.0); MEAN CORPUSCULAR HEMOGLOBIN 30.1 pg (29.0-33.0); MEAN CORPUSCULAR HGB CONC 33.8 g/dl (32.0-37.0); MEAN PLATELET VOLUME 8.8 fl (7.4-10.4); MONOCYTE # 0.4 10^3/ul (0.3-0.9); MONOCYTES % 9.1 % (0.0-11.0); NEUTROPHIL # 2.1 10^3/ul (1.6-7.5); NEUTROPHILS % 45.4 % (39.0-77.0); PLATELET COUNT 272 10^3/UL (140-440); RED BLOOD COUNT 4.29 10^6/ul (4.20-5.40); RED CELL DISTRIBUTION WIDTH 15.2 % (11.5-14.5); UNCORRECTED WBC 4.6 10^3/ul (4.8-10.8); WHITE BLOOD COUNT 4.6 10^3/ul (4.8-10.8)
[2016-03-21 10:13] LABS: POTASSIUM 3.9 mmol/L (3.5-5.1)
[2016-03-21 10:16] LABS: CREATININE 0.69 mg/dl (0.44-1.00)
[2016-03-21 10:17] LABS: MAGNESIUM 1.9 mg/dl (1.7-2.5)
[2016-03-21 10:21] LABS: CONDITION 1; LH ANALYZER COMMENTS 1
--- NOTE | 2016-03-21 11:41 | CONS ---
Date/Time of Note Date/Time of Note DATE: 03/21/16 TIME: 11:37 Assessment/Plan Assessment/Plan Chief Complaint/Hosp Course 60 yo with 1. Adenocarcinoma of the sigmoid colon - pathology reviewed. Low probability of MSI. Pt will need surgical evaluation. -Depending on surgical path and if there is indeed evidence of lymph node positivity or perforation, pt will need adjuvant chemotherapy. -appreciate surgical recs. pt to undergo a gastrograffin study to evaluate the rest of the colon prior to surgery 2. 1.0 x 1.5 cm well marginated mass in the outer left breast. -Ultrasound guided bx ordered of the mass. This is likely a separate process and unlikely metastatic disease from the sigmoid colon. bx done by Dr. Sutton. will follow up result 3. Thyroid mass -f/u FNA done at [facility] Approximately 40 min were spent at patient's bedside and in coordination of her care Problems: Consultation Date/Type/Reason Admit Date/Time Mar 18, 2016 at 16:38 Initial Consult Date 03/19/16 Type of Consultation: oncology Reason for Consultation breast mass/ sigmoid adenoca Referring Provider: TC CANELA MD 24 HR Interval Summary Free Text/Dictation breast biopsy done yesterday Exam/Review of Systems Vital Signs Vitals Vital Signs Date Time Temp Pulse Resp B/P Pulse Ox O2 Delivery O2 Flow Rate FiO2 03/21/16 07:49 98.0 66 18 136/73 96 03/18/16 18:40 Room Air Intake and Output 03/20/16 03/20/16 03/21/16 15:00 23:00 07:00 Intake Total 840 ml 240 ml Balance 840 ml 240 ml Exam Constitutional: alert, oriented Psych: no complaints Head: normocephalic Eyes: nl conjunctiva ENMT: nl external ears & nose Neck: non-tender, supple Respiratory: clear to auscultation, normal air movement Cardiovascular: nl pulses, regular rate and rhythm Gastrointestinal: soft Musculoskeletal: nl extremities to inspection, nl gait and stance Extremities: normal pulses Results Result Diagram: 03/21/16 0940 03/21/16 0940 Results 24 hrs Laboratory Tests Test 03/21/16 09:40 Anion Gap 17 H Basophils # 0.0 Basophils % 0.6 Blood Morphology Comment Blood Urea Nitrogen 8 Calcium Level 9.0 Carbon Dioxide Level 29 Chloride Level 106 Creatinine 0.69 Eosinophils # 0.1 Eosinophils % 1.9 Glucose Level 94 Hematocrit 38.2 Hemoglobin 12.9 Lymphocytes # 2.0 Lymphocytes % 43.0 Magnesium Level 1.9 Mean Corpuscular Hemoglobin 30.1 Mean Corpuscular Hemoglobin Concent 33.8 Mean Corpuscular Volume 89.0 Mean Platelet Volume 8.8 Monocytes # 0.4 Monocytes % 9.1 Neutrophils # 2.1 Neutrophils % 45.4 Nucleated Red Blood Cells # 0.0 Nucleated Red Blood Cells % 0.0 Platelet Count 272 Potassium Level 3.9 Red Blood Count 4.29 Red Cell Distribution Width 15.2 H Sodium Level 148 H White Blood Count 4.6 L Medications Medications Current Medications Polyethylene Glycol (Miralax) 17 gm DAILY PO Last administered on 03/20/16 09: 10; Admin Dose 17 GM; Start 03/19/16 at 09:00 Pantoprazole (Protonix Tab) 40 mg DAILY@06 PO Last administered on 03/21/16 05: 19; Admin Dose 40 MG; Start 03/19/16 at 06:00; Stop 03/23/16 at 06:01 Clarithromycin (Biaxin) 500 mg Q12 PO Last administered on 03/21/16 09:24; Admin Dose 500 MG; Start 03/18/16 at 21:00; Stop 03/23/16 at 20:59 Metronidazole (Flagyl) 500 mg Q8 PO Last administered on 03/21/16 05:19; Admin Dose 500 MG; Start 03/18/16 at 22:00; Stop 03/23/16 at 21:59 Acetaminophen (Tylenol Tab) 650 mg Q6H PRN PO PAIN AND OR ELEVATED TEMP Last administered on 03/20/16 20:44; Admin Dose 650 MG; Start 03/18/16 at 22:30 Morphine Sulfate (morphine) 2 mg Q4H PRN IV PAIN LEVEL 7-10; Start 03/18/16 at 22:30 Ondansetron HCl (Zofran Inj) 4 mg Q6H PRN IV NAUSEA AND/OR VOMITING Last administered on 03/20/16 20:44; Admin Dose 4 MG; Start 03/18/16 at 23:00 Amoxicillin/ Clavulanate Potassium (Augmentin) 875 mg Q12 PO Last administered on 03/21/16 09:24; Admin Dose 875 MG; Start 03/19/16 at 09:00; Stop 03/24/16 at 09:01 Enoxaparin Sodium (Lovenox) 40 mg DAILY SC Last administered on 03/20/16t 09:09 ; Admin Dose 40 MG; Start 03/20/16 at 09:00 ANA SHARP M.D. Mar 21, 2016 11:41
--- NOTE | 2016-03-21 14:39 | PN ---
Date/Time of Note Date/Time of Note DATE: 03/21/16 TIME: 14:22 Assessment/Plan VTE Prophylaxis VTE Prophylaxis Intervention: LMWH Lines/Catheters IV Catheter Type (from Nrsg): Saline Lock Urinary Cath still in place: No Assessment/Plan Assessment/Plan 1. Abdominal pain - 2/2 colon cancer (adenocarcinoma) and C diff colitis - appreciate consult hem/onc and surgery, monitor acute changes, pain management, bowel regimen, gastrograffin study 2. Clostridium difficile colitis - continue with flagyl, precautions 3. Acute pancreatitis, with a lipase of 600. - trend - IVF 4. Left breast mass - possible mets -s/p bx, f/u path 5. Recently diagnosed Helicobacter pylori, currently undergoing treatment. 6. GI ppx - ppi 7. DVT ppx - lovenox dispo - f/u recs, monitor acute changes, as per clinical course. Awaiting records - monitor acute changes this progress note took greater than 30 minutes to complete Subjective 24 Hr Interval Summary Free Text/Dictation Patient had a breast bx completed. She is scheduled for a gastrografin study of the abdomen. spoke to the , present at bedside about the care plan. 15 minutes spent. Exam/Review of Systems Vital Signs Vitals Vital Signs Date Time Temp Pulse Resp B/P Pulse Ox O2 Delivery O2 Flow Rate FiO2 03/21/16 07:49 98.0 66 18 136/73 96 03/18/16 18:40 Room Air Intake and Output 03/20/16 03/20/16 03/21/16 15:00 23:00 07:00 Intake Total 840 ml 240 ml Balance 840 ml 240 ml Exam Gen Will: abdominal pain - resolved, AAOx4 HEENT: NC/AT, PERRLA, EOMI, no pharyngeal erythema, no tonsillar exudates, no lymphadenopathy, no JVD, no carotid bruits NECK: supple, no thyromegaly THORAX: symmetrical, no obvious deformities CV: S1S2, RRR, no M/G/R Lungs: CTAB no W/C/R/R Abd: soft, tenderness to deep palpation/ND, +BS, no rebound, no guarding, neg HSM EXT: no edema, no ecchymosis, no clubbing, FROM Neuro: CN II-XII grossly intact, no focal deficits Psych: fair mood and affect Skin: C/D/I Results Result Diagram: 2/8/17 0940 03/21/16 0940 Results 24 hrs Laboratory Tests Test 03/21/16 09:40 Anion Gap 17 H Basophils # 0.0 Basophils % 0.6 Blood Morphology Comment Blood Urea Nitrogen 8 Calcium Level 9.0 Carbon Dioxide Level 29 Chloride Level 106 Creatinine 0.69 Eosinophils # 0.1 Eosinophils % 1.9 Glucose Level 94 Hematocrit 38.2 Hemoglobin 12.9 Lipase 384 H Lymphocytes # 2.0 Lymphocytes % 43.0 Magnesium Level 1.9 Mean Corpuscular Hemoglobin 30.1 Mean Corpuscular Hemoglobin Concent 33.8 Mean Corpuscular Volume 89.0 Mean Platelet Volume 8.8 Monocytes # 0.4 Monocytes % 9.1 Neutrophils # 2.1 Neutrophils % 45.4 Nucleated Red Blood Cells # 0.0 Nucleated Red Blood Cells % 0.0 Platelet Count 272 Potassium Level 3.9 Red Blood Count 4.29 Red Cell Distribution Width 15.2 H Sodium Level 148 H White Blood Count 4.6 L Medications Medications Current Medications Polyethylene Glycol (Miralax) 17 gm DAILY PO Last administered on 03/20/16 09: 10; Admin Dose 17 GM; Start 03/19/16 at 09:00 Pantoprazole (Protonix Tab) 40 mg DAILY@06 PO Last administered on 03/21/16 05: 19; Admin Dose 40 MG; Start 03/19/16 at 06:00; Stop 03/23/16 at 06:01 Clarithromycin (Biaxin) 500 mg Q12 PO Last administered on 03/21/16 09:24; Admin Dose 500 MG; Start 03/18/16 at 21:00; Stop 03/23/16 at 20:59 Metronidazole (Flagyl) 500 mg Q8 PO Last administered on 03/21/16 13:37; Admin Dose 500 MG; Start 03/18/16 at 22:00; Stop 03/23/16 at 21:59 Acetaminophen (Tylenol Tab) 650 mg Q6H PRN PO PAIN AND OR ELEVATED TEMP Last administered on 03/20/16 20:44; Admin Dose 650 MG; Start 03/18/16 at 22:30 Morphine Sulfate (morphine) 2 mg Q4H PRN IV PAIN LEVEL 7-10; Start 03/18/16 at 22:30 Ondansetron HCl (Zofran Inj) 4 mg Q6H PRN IV NAUSEA AND/OR VOMITING Last administered on 03/20/16 20:44; Admin Dose 4 MG; Start 03/18/16 at 23:00 Amoxicillin/ Clavulanate Potassium (Augmentin) 875 mg Q12 PO Last administered on 03/21/16 09:24; Admin Dose 875 MG; Start 03/19/16 at 09:00; Stop 03/24/16 at 09:01 Enoxaparin Sodium (Lovenox) 40 mg DAILY SC Last administered on 03/20/16 09:09 ; Admin Dose 40 MG; Start 03/20/16 at 09:00 TC CANELA MD Mar 21, 2016 14:32
[2016-03-21 20:00] VITALS: BP 140/62; RESP 16
[2016-03-21] MEDS ORDERED: PEG/ELECTROLYTES 4L BTL PO ONE (20:00)
[2016-03-21] MEDS: ONDANSETRON 4 MG INJ IV PRN (21:45)
[2016-03-22] MEDS: metroNIDAZOLE 500 MG TAB PO SCH ×3 (04:27→20:48)
[2016-03-22] MEDS: PANTOPRAZOLE (EC) 40 MG TAB PO SCH (04:27)
[2016-03-22 05:35] LABS: BASOPHILS % 0.6 % (0.0-2.0); EOSINOPHILS # 0.1 10^3/ul (0.0-0.5); EOSINOPHILS % 2.7 % (0.0-7.0); HEMOGLOBIN 11.2 g/dl (12.0-16.0); LYMPHOCYTES # 1.9 10^3/ul (0.8-2.9); LYMPHOCYTES % 43.9 % (15.0-51.0); MEAN CORPUSCULAR HEMOGLOBIN 30.1 pg (29.0-33.0); MEAN CORPUSCULAR VOLUME 88.6 fl (82.0-101.0); MEAN PLATELET VOLUME 8.7 fl (7.4-10.4); MONOCYTE # 0.5 10^3/ul (0.3-0.9); MONOCYTES % 11.5 % (0.0-11.0); NEUTROPHIL # 1.8 10^3/ul (1.6-7.5); NEUTROPHILS % 41.3 % (39.0-77.0); PLATELET COUNT 231 10^3/UL (140-440); RED BLOOD COUNT 3.73 10^6/ul (4.20-5.40); RED CELL DISTRIBUTION WIDTH 15.3 % (11.5-14.5); UNCORRECTED WBC 4.3 10^3/ul (4.8-10.8); WHITE BLOOD COUNT 4.3 10^3/ul (4.8-10.8)
[2016-03-22 06:04] LABS: ALBUMIN 3.1 g/dl (3.3-4.9)
[2016-03-22 06:05] LABS: POTASSIUM 3.3 mmol/L (3.5-5.1)
[2016-03-22 06:07] LABS: BILIRUBIN,INDIRECT 0.2 mg/dl (0-1.1); BILIRUBIN,TOTAL 0.2 mg/dl (0.2-1.3); CREATININE 0.58 mg/dl (0.44-1.00)
[2016-03-22 06:08] LABS: ALBUMIN/GLOBULIN RATIO 0.91; CALCIUM 8.4 mg/dl (8.4-10.2); TOTAL PROTEIN 6.5 g/dl (6.1-8.1)
[2016-03-22 06:18] LABS: CONDITION 1; LH ANALYZER COMMENTS 1
--- NOTE | 2016-03-22 07:24 | RADRPT ---
PROCEDURE: XR Abdomen. CLINICAL INDICATION: Sigmoid colon mass TECHNIQUE: 2 AP views of the abdomen were obtained COMPARISON: CT abdomen and pelvis dated 03/18/2016 FINDINGS: There is a nonobstructive bowel gas pattern. There is mild air-filled distension of the colon No int raperitoneal free air or pneumatosis is identified. There is no evidence of organomegaly. No abnor mal soft tissue calcifications are seen. The visualized portion of the lung bases are clear. The o sseous structures are unremarkable. IMPRESSION: Mild air-filled distension of the colon. Otherwise, unremarkable abdominal x-ray RPTAT: HH .Carmita Santiago MD, MD Date Time Electronically viewed and signed by .Carmita Santiago MD, on 03/22/2016 07:24 .G/
[2016-03-22 08:19] VITALS: BP 140/66; RESP 18
[2016-03-22] MEDS: ENOXAPARIN 40 MG/0.4 ML SYG SC SCH (09:00)
[2016-03-22] MEDS: POLYETHYLENE GLYCOL 17 GM PACKET PO SCH (09:00)
[2016-03-22] MEDS: CLARITHROMYCIN 500 MG TAB PO SCH ×2 (10:05→20:48)
[2016-03-22] MEDS: AMOXICILLIN/CLAV 875 MG TAB PO SCH ×2 (10:05→20:48)
--- NOTE | 2016-03-22 11:29 | PN ---
Date/Time of Note Date/Time of Note DATE: 03/22/16 TIME: 11:27 Assessment/Plan VTE Prophylaxis VTE Prophylaxis Intervention: LMWH Lines/Catheters IV Catheter Type (from Nrsg): Saline Lock Urinary Cath still in place: No Assessment/Plan Assessment/Plan 1. Abdominal pain - 2/2 colon cancer (adenocarcinoma) and C diff colitis - appreciate consult hem/onc and surgery, monitor acute changes, pain management, bowel regimen, gastrograffin study - air filled colon 2. Clostridium difficile colitis - continue with flagyl, precautions 3. Acute pancreatitis, with a lipase of 600. - trend - IVF 4. Left breast mass - possible mets -s/p bx, f/u path 5. Recently diagnosed Helicobacter pylori, currently undergoing treatment. 6. GI ppx - ppi 7. DVT ppx - lovenox dispo - f/u recs, monitor acute changes, as per clinical course. continue with current treatment this progress note took greater than 30 minutes to complete Subjective 24 Hr Interval Summary Free Text/Dictation Patient has no abdominal pain. She is prepping for scope vs other testing. Spoke to her about the care plan. 10 minutes spent. Exam/Review of Systems Vital Signs Vitals Vital Signs Date Time Temp Pulse Resp B/P Pulse Ox O2 Delivery O2 Flow Rate FiO2 03/22/16 08:19 98.2 82 18 140/66 95 03/18/16 18:40 Room Air Intake and Output 03/21/16 03/21/16 03/22/16 15:00 23:00 07:00 Intake Total 1400 ml 2000 ml Balance 1400 ml 2000 ml Exam Gen Will: abdominal pain - resolved, AAOx4 HEENT: NC/AT, PERRLA, EOMI, no pharyngeal erythema, no tonsillar exudates, no lymphadenopathy, no JVD, no carotid bruits NECK: supple, no thyromegaly THORAX: symmetrical, no obvious deformities CV: S1S2, RRR, no M/G/R Lungs: CTAB no W/C/R/R Abd: soft, tenderness to deep palpation/ND, +BS, no rebound, no guarding, neg HSM EXT: no edema, no ecchymosis, no clubbing, FROM Neuro: CN II-XII grossly intact, no focal deficits Psych: fair mood and affect Skin: C/D/I Results Result Diagram: 03/22/16 0510 03/22/16 0510 Results 24 hrs Laboratory Tests Test 03/22/16 05:10 Alanine Aminotransferase (ALT/SGPT) 25 Albumin 3.1 L Albumin/Globulin Ratio 0.91 Alkaline Phosphatase 53 Anion Gap 15 Aspartate Amino Transf (AST/SGOT) 34 Basophils # 0.0 Basophils % 0.6 Blood Morphology Comment Blood Urea Nitrogen 7 Calcium Level 8.4 Carbon Dioxide Level 27 Chloride Level 105 Creatinine 0.58 Direct Bilirubin 0.00 Eosinophils # 0.1 Eosinophils % 2.7 Globulin 3.40 H Glucose Level 85 Hematocrit 33.0 L Hemoglobin 11.2 L Indirect Bilirubin 0.2 Lymphocytes # 1.9 Lymphocytes % 43.9 Mean Corpuscular Hemoglobin 30.1 Mean Corpuscular Hemoglobin Concent 34.0 Mean Corpuscular Volume 88.6 Mean Platelet Volume 8.7 Monocytes # 0.5 Monocytes % 11.5 H Neutrophils # 1.8 Neutrophils % 41.3 Nucleated Red Blood Cells # 0.0 Nucleated Red Blood Cells % 0.0 Platelet Count 231 Potassium Level 3.3 L Red Blood Count 3.73 L Red Cell Distribution Width 15.3 H Sodium Level 144 Total Bilirubin 0.2 Total Protein 6.5 White Blood Count 4.3 L Medications Medications Current Medications Polyethylene Glycol (Miralax) 17 gm DAILY PO Last administered on 03/20/16 09: 10; Admin Dose 17 GM; Start 03/19/16 at 09:00 Pantoprazole (Protonix Tab) 40 mg DAILY@06 PO Last administered on 03/22/16 04: 27; Admin Dose 40 MG; Start 03/19/16 at 06:00; Stop 03/23/16 at 06:01 Clarithromycin (Biaxin) 500 mg Q12 PO Last administered on 03/22/16 10:05; Admin Dose 500 MG; Start 03/18/16 at 21:00; Stop 03/23/16 at 20:59 Metronidazole (Flagyl) 500 mg Q8 PO Last administered on 03/22/16 04:27; Admin Dose 500 MG; Start 03/18/16 at 22:00; Stop 03/23/16 at 21:59 Acetaminophen (Tylenol Tab) 650 mg Q6H PRN PO PAIN AND OR ELEVATED TEMP Last administered on 03/20/16 20:44; Admin Dose 650 MG; Start 03/18/16 at 22:30 Morphine Sulfate (morphine) 2 mg Q4H PRN IV PAIN LEVEL 7-10; Start 03/18/16 at 22:30 Ondansetron HCl (Zofran Inj) 4 mg Q6H PRN IV NAUSEA AND/OR VOMITING Last administered on 03/21/16 21:45; Admin Dose 4 MG; Start 03/18/16 at 23:00 Amoxicillin/ Clavulanate Potassium (Augmentin) 875 mg Q12 PO Last administered on 03/22/16 10:05; Admin Dose 875 MG; Start 03/19/16 at 09:00; Stop 03/24/16 at 09:01 Enoxaparin Sodium (Lovenox) 40 mg DAILY SC Last administered on 03/20/16 09:09 ; Admin Dose 40 MG; Start 03/20/16 at 09:00 Procedures Procedures Abd xray IMPRESSION: Mild air-filled distension of the colon. Otherwise, unremarkable abdominal x- ray TC CANELA MD Mar 22, 2016 11:29
--- NOTE | 2016-03-22 11:44 | RADRPT ---
Vent Rate: 85 bpm RR Interval: 0 msec [place] Interval: 144 msec QRS Duration: 72 msec QT Interval: 394 msec QTC Interval: 468 msec P-R-T [place]: 72 - 60 - 60 degrees Normal sinus rhythm with sinus arrhythmia Normal ECG Electronically Signed By: Paul Dumont [id number]
[2016-03-22] MEDS: POTASSIUM CHLORIDE 250 ML IVPB SCH ×3 (13:23→20:48)
[2016-03-22] MEDS ORDERED: IOHEXOL 300MG/ML 150 ML BTL ONE (16:24)
[2016-03-22 21:22] VITALS: BP 152/74; RESP 18
[2016-03-23] MEDS: PANTOPRAZOLE (EC) 40 MG TAB PO SCH (05:13)
[2016-03-23] MEDS: metroNIDAZOLE 500 MG TAB PO SCH ×2 (05:13→16:04)
[2016-03-23 07:54] VITALS: BP 130/58; RESP 18
[2016-03-23] MEDS: POLYETHYLENE GLYCOL 17 GM PACKET PO SCH (09:00)
[2016-03-23] MEDS: ENOXAPARIN 40 MG/0.4 ML SYG SC SCH (09:00)
[2016-03-23] MEDS: AMOXICILLIN/CLAV 875 MG TAB PO SCH (09:23)
[2016-03-23] MEDS: CLARITHROMYCIN 500 MG TAB PO SCH (09:23)
[2016-03-23] MEDS: ACETAMINOPHEN 325 MG TAB PO PRN (09:24)
--- NOTE | 2016-03-23 10:09 | RADRPT ---
PROCEDURE: Water-soluble contrast enema CLINICAL INDICATION: Rectal mass TECHNIQUE: A rectal catheter was inserted and the balloon insufflated. Single contrast water solu ble enema was performed, utilizing 1000 cc of a Omnipaque 300 contrast and water solution. 28 fluor oscopic spot films and 3 abdominal radiographs were obtained during the procedure. Total fluoroscop ic time is 2.3 minutes. COMPARISON: CT, 03/18/2016 FINDINGS: Again noted is a persistent segment of irregular colonic luminal narrowing with areas of ulceration noted at the rectosigmoid junction, compatible with the primary colonic neoplasm seen on prior CT. No evidence of contrast extravasation is identified. Contrast flows freely beyond the point of rect osigmoid colon narrowing throughout the colon to the cecum. No other gross evidence of colonic mass or mucosal abnormality is identified. IMPRESSION: 1. Segmental irregular colonic luminal narrowing and ulceration is seen in the region of the rectos igmoid junction, compatible with primary colonic neoplasm. 2. No evidence of contrast extravasation or evidence of additional colonic mass lesion is seen. RPTAT: PP .Phi Gutierrez MD, MD Date Time Electronically viewed and signed by .Phi Gutierrez MD, on 03/23/2016 10:09 .R/
[2016-03-23 10:51] LABS: ADD SCAN DIFF NO
[2016-03-23 11:04] LABS: ALBUMIN 3.5 g/dl (3.3-4.9)
[2016-03-23 11:05] LABS: BASOPHILS % 0.6 % (0.0-2.0); EOSINOPHILS # 0.1 10^3/ul (0.0-0.5); HEMATOCRIT 35.8 % (37.0-47.0); HEMOGLOBIN 11.8 g/dl (12.0-16.0); LYMPHOCYTES # 1.4 10^3/ul (0.8-2.9); MEAN CORPUSCULAR VOLUME 91.1 fl (82.0-101.0); MEAN PLATELET VOLUME 10.3 fl (7.4-10.4); MONOCYTE # 0.3 10^3/ul (0.3-0.9); MONOCYTES % 9.5 % (0.0-11.0); NEUTROPHIL # 1.6 10^3/ul (1.6-7.5); NEUTROPHILS % 46.6 % (39.0-77.0); PLATELET COUNT 244 10^3/UL (140-415); RED BLOOD COUNT 3.93 10^6/ul (4.20-5.40); RED CELL DISTRIBUTION WIDTH 14.1 % (11.5-14.5); WHITE BLOOD COUNT 3.5 10^3/ul (4.8-10.8)
[2016-03-23 11:07] LABS: BILIRUBIN,INDIRECT 0.3 mg/dl (0-1.1); BILIRUBIN,TOTAL 0.3 mg/dl (0.2-1.3); CREATININE 0.65 mg/dl (0.44-1.00)
--- NOTE | 2016-03-23 13:28 | PN ---
Date/Time of Note Date/Time of Note DATE: 03/23/16 TIME: 13:23 Assessment/Plan VTE Prophylaxis VTE Prophylaxis Intervention: LMWH Lines/Catheters IV Catheter Type (from Nrsg): Saline Lock Urinary Cath still in place: No Assessment/Plan Assessment/Plan 1. Abdominal pain - 2/2 colon cancer (adenocarcinoma) and C diff colitis - appreciate consult hem/onc and surgery, monitor acute changes, pain management, bowel regimen, gastrograffin study - air filled colon, possible 2. Clostridium difficile colitis - continue with flagyl, precautions 3. Acute pancreatitis, with a lipase of 600. - trend is doing well - IVF 4. Left breast mass - possible mets -s/p bx, f/u path - repeat needed 5. Recently diagnosed Helicobacter pylori, currently undergoing treatment. 6. GI ppx - ppi 7. DVT ppx - lovenox dispo - f/u recs, monitor acute changes, as per clinical course. continue with current treatment - surgical intervention once cleared and optimized this progress note took greater than 30 minutes to complete Subjective 24 Hr Interval Summary Free Text/Dictation Patient no overnight events. Has no pain. I spoke to her and the at bedside about the care plan. 15 minutes spent. Exam/Review of Systems Vital Signs Vitals Vital Signs Date Time Temp Pulse Resp B/P Pulse Ox O2 Delivery O2 Flow Rate FiO2 03/23/16 07:54 97.9 84 18 130/58 97 Intake and Output 03/22/16 03/22/16 03/23/16 15:00 23:00 07:00 Intake Total 550 ml Balance 550 ml Exam Gen Will: abdominal pain - resolved, AAOx4 HEENT: NC/AT, PERRLA, EOMI, no pharyngeal erythema, no tonsillar exudates, no lymphadenopathy, no JVD, no carotid bruits NECK: supple, no thyromegaly THORAX: symmetrical, no obvious deformities CV: S1S2, RRR, no M/G/R Lungs: CTAB no W/C/R/R Abd: soft, tenderness to deep palpation/ND, +BS, no rebound, no guarding, neg HSM EXT: no edema, no ecchymosis, no clubbing, FROM Neuro: CN II-XII grossly intact, no focal deficits Psych: fair mood and affect Skin: C/D/I Results Result Diagram: 03/23/16 1040 03/23/16 1040 Results 24 hrs Laboratory Tests Test 03/23/16 10:40 Alanine Aminotransferase (ALT/SGPT) 26 Albumin 3.5 Albumin/Globulin Ratio 1.00 Alkaline Phosphatase 57 Anion Gap 17 H Aspartate Amino Transf (AST/SGOT) 33 Basophils # 0.0 Basophils % 0.6 Blood Urea Nitrogen 5 L Calcium Level 9.0 Carbon Dioxide Level 25 Chloride Level 104 Creatinine 0.65 Direct Bilirubin 0.00 Eosinophils # 0.1 Eosinophils % 2.0 Globulin 3.50 H Glucose Level 68 #L Hematocrit 35.8 L Hemoglobin 11.8 L Indirect Bilirubin 0.3 Lymphocytes # 1.4 Lymphocytes % 41.0 Mean Corpuscular Hemoglobin 30.0 Mean Corpuscular Hemoglobin Concent 33.0 Mean Corpuscular Volume 91.1 Mean Platelet Volume 10.3 Monocytes # 0.3 Monocytes % 9.5 Neutrophils # 1.6 Neutrophils % 46.6 Nucleated Red Blood Cells # 0.0 Nucleated Red Blood Cells % 0.0 Platelet Count 244 Potassium Level 4.0 Red Blood Count 3.93 L Red Cell Distribution Width 14.1 Sodium Level 142 Total Bilirubin 0.3 Total Protein 7.0 White Blood Count 3.5 L Medications Medications Current Medications Polyethylene Glycol (Miralax) 17 gm DAILY PO Last administered on 03/20/16 09: 10; Admin Dose 17 GM; Start 03/19/16 at 09:00 Clarithromycin (Biaxin) 500 mg Q12 PO Last administered on 03/23/16 09:23; Admin Dose 500 MG; Start 03/18/16 at 21:00; Stop 03/23/16 at 20:59 Metronidazole (Flagyl) 500 mg Q8 PO Last administered on 03/23/16 05:13; Admin Dose 500 MG; Start 03/18/16 at 22:00; Stop 03/23/16 at 21:59 Acetaminophen (Tylenol Tab) 650 mg Q6H PRN PO PAIN AND OR ELEVATED TEMP Last administered on 03/23/16 09:24; Admin Dose 650 MG; Start 03/18/16 at 22:30 Morphine Sulfate (morphine) 2 mg Q4H PRN IV PAIN LEVEL 7-10; Start 03/18/16 at 22:30 Ondansetron HCl (Zofran Inj) 4 mg Q6H PRN IV NAUSEA AND/OR VOMITING Last administered on 03/21/16 21:45; Admin Dose 4 MG; Start 03/18/16 at 23:00 Amoxicillin/ Clavulanate Potassium (Augmentin) 875 mg Q12 PO Last administered on 03/23/16 09:23; Admin Dose 875 MG; Start 03/19/16 at 09:00; Stop 03/24/16 at 09:01 Enoxaparin Sodium (Lovenox) 40 mg DAILY SC Last administered on 03/20/16 09:09 ; Admin Dose 40 MG; Start 03/20/16 at 09:00 Pantoprazole (Protonix Iv) 40 mg DAILY@06 IV ; Start 03/24/16 at 06:00 Procedures Procedures Barium Enema IMPRESSION: 1. Segmental irregular colonic luminal narrowing and ulceration is seen in the region of the rectosigmoid junction, compatible with primary colonic neoplasm. 2. No evidence of contrast extravasation or evidence of additional colonic mass lesion is seen. TC CANELA MD Mar 23, 2016 13:28
--- NOTE | 2016-03-23 15:38 | PDOCDIS ---
Discharge Instructions DIAGNOSIS Discharge Diagnosis: Colon CA CONDITION Patient Condition: Fair HOME CARE INSTRUCTIONS: Special Diet: low fat,low cholesterol ACTIVITY: Activity Restrictions: Slowly Increase Activity Rest between Activity Avoid heavy lifting FOLLOW UP/APPOINTMENTS Appointments Follow up with primary care physician in one week. Follow up with Dr. Lou Salas in 1 week. Follow up with Dr. Kaur in one week. Follow up with Dr. Jorge Sutton in one week. OTHER ORDERS: Other Orders: colon CA - will need chemotherapy - adjuvant type with possible radiation therapy prior to any surgery at this time. C diff - continue with medications prescribed H pylori - continue to finish the medications as prescribed. TC CANELA MD Mar 23, 2016 15:38
--- NOTE | 2016-03-23 15:40 | CONS ---
Date/Time of Note Date/Time of Note DATE: 03/23/16 TIME: 15:35 Assessment/Plan Assessment/Plan Chief Complaint/Hosp Course 60 yo with 1. Adenocarcinoma of the recto-sigmoid colon - pathology reviewed. Low probability of MSI. Case reviewed with surgeon and oncologists at [facility] who originally saw this patient.The tumor is a high rectal tumor as is also suggested by Gastrografin study. This therefore needs to be treated as a rectal ca with neoadjuvant Xeloda/Radiation. Patient is currently having bowel movements. Given this I do not think she needs a diverting ostomy at this time but she is aware that if she becomes obstructed after XRT then she may need an ostomy down the road - I have called Dr. Charlton who will see the patient from a radiation standpoint - will follow up patient in clinic to start Xeloda and XRT [place] -this will be followed by an APR 2. 1.0 x 1.5 cm well marginated mass in the outer left breast. -Ultrasound guided bx ordered of the mass. Biopsy specimen was not diagnostic therefore we will need to repeat this as an outpatient 3. Thyroid mass -f/u FNA done at [facility]. results reveal no evidence of malignancy Approximately 40 min were spent at patient's bedside and in coordination of her care Problems: Consultation Date/Type/Reason Admit Date/Time Mar 18, 2016 at 16:38 Initial Consult Date 03/19/16 Type of Consultation: oncology Reason for Consultation colon ca Referring Provider: TC CANELA MD 24 HR Interval Summary Free Text/Dictation breast bx was done. pt having bowel movements and tolerating soft diet Exam/Review of Systems Vital Signs Vitals Vital Signs Date Time Temp Pulse Resp B/P Pulse Ox O2 Delivery O2 Flow Rate FiO2 03/23/16 07:54 97.9 84 18 130/58 97 Intake and Output 03/22/16 03/22/16 03/23/16 15:00 23:00 07:00 Intake Total 550 ml Balance 550 ml Exam Constitutional: alert, oriented Psych: no complaints Head: atraumatic, normocephalic Eyes: nl conjunctiva ENMT: nl external ears & nose Neck: non-tender, supple Respiratory: clear to auscultation, normal air movement Cardiovascular: nl pulses, regular rate and rhythm Gastrointestinal: soft Musculoskeletal: nl extremities to inspection, nl gait and stance Extremities: normal pulses Results Result Diagram: 03/23/16 1040 03/23/16 1040 Results 24 hrs Laboratory Tests Test 03/23/16 10:40 Alanine Aminotransferase (ALT/SGPT) 26 Albumin 3.5 Albumin/Globulin Ratio 1.00 Alkaline Phosphatase 57 Anion Gap 17 H Aspartate Amino Transf (AST/SGOT) 33 Basophils # 0.0 Basophils % 0.6 Blood Urea Nitrogen 5 L Calcium Level 9.0 Carbon Dioxide Level 25 Chloride Level 104 Creatinine 0.65 Direct Bilirubin 0.00 Eosinophils # 0.1 Eosinophils % 2.0 Globulin 3.50 H Glucose Level 68 #L Hematocrit 35.8 L Hemoglobin 11.8 L Indirect Bilirubin 0.3 Lymphocytes # 1.4 Lymphocytes % 41.0 Mean Corpuscular Hemoglobin 30.0 Mean Corpuscular Hemoglobin Concent 33.0 Mean Corpuscular Volume 91.1 Mean Platelet Volume 10.3 Monocytes # 0.3 Monocytes % 9.5 Neutrophils # 1.6 Neutrophils % 46.6 Nucleated Red Blood Cells # 0.0 Nucleated Red Blood Cells % 0.0 Platelet Count 244 Potassium Level 4.0 Red Blood Count 3.93 L Red Cell Distribution Width 14.1 Sodium Level 142 Total Bilirubin 0.3 Total Protein 7.0 White Blood Count 3.5 L Medications Medications Current Medications Polyethylene Glycol (Miralax) 17 gm DAILY PO Last administered on 03/20/16 09: 10; Admin Dose 17 GM; Start 03/19/16 at 09:00 Clarithromycin (Biaxin) 500 mg Q12 PO Last administered on 03/23/16 09:23; Admin Dose 500 MG; Start 03/18/16 at 21:00; Stop 03/23/16 at 20:59 Metronidazole (Flagyl) 500 mg Q8 PO Last administered on 03/23/16 05:13; Admin Dose 500 MG; Start 03/18/16 at 22:00; Stop 03/23/16 at 21:59 Acetaminophen (Tylenol Tab) 650 mg Q6H PRN PO PAIN AND OR ELEVATED TEMP Last administered on 03/23/16 09:24; Admin Dose 650 MG; Start 03/18/16 at 22:30 Morphine Sulfate (morphine) 2 mg Q4H PRN IV PAIN LEVEL 7-10; Start 03/18/16 at 22:30 Ondansetron HCl (Zofran Inj) 4 mg Q6H PRN IV NAUSEA AND/OR VOMITING Last administered on 03/21/16 21:45; Admin Dose 4 MG; Start 03/18/16 at 23:00 Amoxicillin/ Clavulanate Potassium (Augmentin) 875 mg Q12 PO Last administered on 03/23/16 09:23; Admin Dose 875 MG; Start 03/19/16 at 09:00; Stop 03/24/16 at 09:01 Enoxaparin Sodium (Lovenox) 40 mg DAILY SC Last administered on 03/20/16 09:09 ; Admin Dose 40 MG; Start 03/20/16 at 09:00 Pantoprazole (Protonix Iv) 40 mg DAILY@06 IV ; Start 03/24/16 at 06:00 ANA SHARP M.D. Mar 23, 2016 15:40
--- NOTE | 2016-03-23 15:50 | RADRPT ---
PROCEDURE: MR Pelvis with and without contrast. CLINICAL INDICATION: Rectal cancer. TECHNIQUE: MRI of the pelvis was performed on a 1.5T GE MR Magnet using the following sequences: m ulti-planar T2 forced recovery fast spin echo with and without fat suppression, in- and opposed phas e T1 gradient recalled echo, diffusion-weighted imaging, and axial fat-suppressed 3D T1 gradient rec alled sequence and following the intravenous administration of 10 cc of Magnevist, multi-planar fat- suppressed 3D T1 gradient recalled echo sequences were performed. COMPARISON: None. FINDINGS: There is a long segment of abnormal mural thickening involving the upper rectum over a length of 7 c m. The mass begins approximately 13-cm from the anal verge. There is extension of tumor into the a djacent mesorectal fat with involvement of the circumferential resection margin. There is also susp ected involvement of the peritoneal reflection. There is no sphincteric involvement. There is no m esorectal or pelvic lymphadenopathy. IMPRESSION: Long segment of marked mural thickening involving the upper rectum, consistent with rectal malignanc y. There is involvement of the circumferential resection margin and peritoneal reflection. RPTAT: EE .Eduar Talley MD, Date Time Electronically viewed and signed by .Eduar Talley MD, on 03/23/2016 15:53 .C/
--- NOTE | 2016-03-23 17:32 | DS ---
DATE OF ADMISSION: 03/18/2016 DATE OF DISCHARGE: 03/23/2016 DISCHARGE DIAGNOSES: 1. Abdominal pain secondary to adenocarcinoma, possibly rectal carcinoma, as well. 2. Clostridium difficile colitis. 3. Acute pancreatitis, improved. 4. Left breast mass recent diagnosis of Helicobacter pylori. HOSPITAL COURSE: This is an unfortunate 60-year-old female with a history of recently diagnosed col on cancer with C. diff, sigmoid microperforation, left breast mass and a subclinical hypothyroidism who presented to the emergency department with abdominal pain and diarrhea. She was admitted to [facility] recently and was accompanied by her daughter for the history at this time. S ekta, the consultants on the case were Dr. Lou Salas, Dr. Hazel, Dr. Jorge Sutton and Dr. Mistry. Patient was admitted to med/surg for further evaluation and treatment. Initial imaging: A CT abdomen and pelvis was done showin. Dilatation of extrahepatic common bile duct which measures 8.5 mm, no pancreatic mass is identif ied. MRCP or ERCP may be helpful for further evaluation. 2. There is a mass in the area of the rectosigmoid colon with serosal stranding consistent with a k nown history of sigmoid cancer. More detailed evaluation of the PET CT scan or MRI of the pelvis ca n be performed if clinically indicated. 3. A 1.5 cm mass in the left breast. Further evaluation with a targeted sonogram and/or mammogram is recommended for the plate-like areas of atelectasis or parenchymal scarring of in the bases of th e lungs, no pulmonary, bony or hepatic metastases are identified. Findings were phoned to Dr. Cristi mclean. Abdominal x-ray showed mild air-filled distention of the colon, otherwise unremarkable abdominal x-ray. A barium enema was done showing one segmental irregular colonic luminal narrowing and ulcer ations seen in the region of the rectosigmoid junction with primary colonic neoplasm. 3. No evidence of contrast extravasation or evidence of additional colonic mass lesion is seen. Pe lvic MRI was done showing a long segment of marked mural thickening involving the upper rectum consi stent with rectum malignancy. There is involvement of the circumferential resection margin and bhavik toneal reflection. Initial laboratory findings showed a white count of 4.8, H and H 13.2 and 39.9 w ith platelets of 223. Currently, white count is 3.5, H and H 11.8 and 35.8 with platelets of 244. 4. Chemistry: Initial chemistry shows sodium 145, potassium 3.8, chloride 105, carbon dioxide 25, anion gap 19, BUN and creatinine 10 and 0.62, glucose of 78, calcium 9.1, magnesium was 1.9, total b ilirubin 0.1, AST of 30, ALT of 24, alkaline phosphatase of 65, albumin 3.9, lipase of 600, down vijay nded to 384. Current BUN and creatinine is 5 and 0.65 with a glucose of 68. MICROBIOLOGY: Clostridium difficile assay was negative on repeat. Urine was negative at this time. The patient had a biopsy done of her breast at this time. Pathology showed specimen submitted long s not appear to hospital insurance representative of breast lesion, correlation with clinical setting and imaging studi es advised. Review will be done as an outpatient. At this time, the patient will have all of her w orkup done as an outpatient at this time with Dr. Velasquez and Dr. Sutton and Dr. Mistry as further new plan is to do adjuvant chemotherapy. The patient's family was notified about this plan. DISPOSITION: Home. CONDITION: Fair to stable. DISCHARGE MEDICATIONS: Includes: 1. Augmentin 1 tab p.o. b.i.d. 2. Clarithromycin 500 mg p.o. b.i.d. 2. Flagyl 500 mg p.o. t.i.d. 3. Protonix 40 mg p.o. daily. 4. MiraLax 17 g p.o. daily. 5. Zofran 4 mg ODT p.r.n. for nausea, vomiting. FOLLOWUP: The patient will follow up with Dr. Lou Salas in 1 week. Will follow up with Dr. Nuria jasso in 1 week. Follow up with Dr. Jorge Sutton in 1 week and primary care physician in 1 week. P atient and consultants made aware of this. COORDINATION OF DISCHARGE: Greater than 40 minutes. Dictated By: TC LEIJA/JIGAR Conf#: [id number] DID#: [id number]
[2016-03-24] MEDS ORDERED: PANTOPRAZOLE 40 MG INJ IV SCH (06:00)
--- NOTE | 2016-03-25 19:54 | CONS ---
DATE OF ADMISSION: 03/18/2016 DATE OF CONSULTATION: 03/19/2016 TYPE OF CONSULTATION: Surgical. REFERRING PHYSICIAN: Kaushik Canela MD OTHER PHYSICIANS INVOLVED: Dr. Lou Salas. CHIEF COMPLAINT: 1. Abdominal pain. 2. Diarrhea. 3. Colorectal cancer, recent diagnosis. 4. Clostridium difficile. 5. Possible sigmoid microperforation. 6. Left breast mass. 7. Thyroid lesion. HISTORY OF PRESENT ILLNESS: Ms. Deirdre Sousa is a 60-year-old female who presented initially t [facility] with abdominal pain and diarrhea without fevers or chills. No chest zeeshan n, no shortness of breath. Nausea, but no vomiting. No dysuria or vaginal discharge. No trauma or sick contacts. At that time, she was found to have C. diff colitis and possible sigmoid microperfo ration. After she improved, she had a colonoscopy, which identified a rectosigmoid mass and biopsy identified it to be adenocarcinoma. She was also found to have a breast lesion and a thyroid lesion . The thyroid FNA was obtained. The patient was brought into [facility] due to insurance capitation and surgical consult was obtained for further evaluation and treatment. PAST MEDICAL HISTORY: 1. Left breast mass. 2. Thyroid mass. 3. Rectosigmoid adenocarcinoma. 4. Sigmoid microperforation. 5. Clostridium difficile colitis. 6. Diarrhea. 7. Abdominal pain. 8. Nausea. 9. Dilatation of the extrahepatic common bile duct. 10. Possible pancreatitis with elevated lipase of 600. 11. H. pylori positive. 12. Subclinical hypothyroidism. 13. Memory impairment. 14. Hypoalbuminemia. PAST SURGICAL HISTORY: 1. Cholecystectomy. 2. Appendectomy. 3. FNA thyroid lesion. 4. EGD. 5. Colonoscopy, unable to pass the lesion in the rectosigmoid. MEDICATIONS: As per MAR. ALLERGIES: As per chart. SOCIAL HISTORY: No alcohol, drugs, or tobacco. The patient is here with her daughter who is a nurs e at [facility] ____ ICU. REVIEW OF SYSTEMS: No history of colorectal cancers or other cancers. PHYSICAL EXAMINATION: VITAL SIGNS: Temperature is 98.7, pulse 70s, blood pressure 129/63. GENERAL: No acute distress, comfortable, pleasant. BMI 26. HEENT: Pupils equal, reactive. No scleral icterus. Mucous membranes are moist. NECK: Supple. No JVD. Trachea midline. PULMONARY: Normal respiratory effort. No wheezing. CARDIOVASCULAR: S1, S2 present and regular. ABDOMEN: Soft, minimal tender in left lower quadrant. No rebound, no guarding, not rigid. EXTREMITIES: No edema. VASCULAR: Cap refill less than 2 seconds. NEUROLOGIC: Alert, oriented to self and location. Moves all 4 extremities grossly. PSYCHIATRIC: Normal affect. LYMPHATICS: No palpable cervical or inguinal lymphadenopathy. SKIN: No rashes. No jaundice. LABORATORY DATA: WBC is 4, H and H 12/35, platelets 239. Chemistries within normal. Albumin is lo w at 3. RADIOGRAPHIC: CT abdomen and pelvis reports dilation of the extrahepatic common bile duct at 8.5 mm . The mass at the rectosigmoid colon, which shows stranding consistent with sigmoid cancer history. A 1.5 cm mass in the left breast. Plate like areas of atelectasis or parenchymal scarring in base of the lungs. No nodules identified. No hepatic masses. No bony masses. ASSESSMENT AND PLAN: Ms. Deirdre Sousa is a 60-year-old female with multiple comorbidities. 1. Rectosigmoid adenocarcinoma. This seems more rectal in nature. We will discuss with oncology i n terms of further treatment with neoadjuvant chemoradiation followed by eventual surgery unless obs truction or bleeding identified. However, at this point since the colonoscopy could not evaluate th e rest of the colon, I recommend bowel regimen to slowly clean out her intestines and to obtain a ba rium enema study for further evaluation. 2. Left breast mass. Will need ultrasound-guided biopsy to further elucidate the etiology. 3. Thyroid mass, status post fine needle aspiration at [facility]. Will need to obtain those resul ts. 4. Hypoalbuminemia, probably multifactorial. However, she will benefit from nutritional optimizati on especially with protein to improve her overall body strength. 5. Clostridium difficile colitis with possible sigmoid microperforation and diarrhea status post an tibiotic. Continue medical optimization. 6. Subclinical hypothyroidism. Will defer to medical team for correction. Thank you very much for consulting me in this patient's care. Dictated By: LINETTE RODRIGUEZ MD SK/NTS Conf#: [id number] DID#: [id number] CC: BOLIVAR ULLOA MD; KAUSHIK CANELA MD;*EndCC*
--- NOTE | 2016-03-25 22:28 | CONS ---
DATE OF ADMISSION: 03/18/2016 DATE OF CONSULTATION: 03/23/2016 DIAGNOSIS: Adenocarcinoma of the rectosigmoid. NARRATIVE: The patient is a 60-year-old female who presented earlier this month to [facility] with complaints of abdominal cramping, diarrhea, nausea and vomiting. She also noted a de creased appetite, modest weight loss and generalized weakness. She apparently was diagnosed with Cl ostridium difficile and treated medically. She underwent endoscopy, at which time reportedly the tx ope could not pass past 25 cm as there was obstruction from a mass. Biopsy of this mass was consist ent with adenocarcinoma. The patient subsequently transferred her care to [facility], where further workup was performed. A CT scan of the abdomen and pelvis on 03/18/2016 revealed a 10 x 15 mm well-marginated mass in the outer left breast. A biopsy of this mass was performed on 03/20/2016 demonstrating adipose tissue with mammary stroma. This was felt to be a nondiagnostic s tudy and not petroleum products sales representative of the breast lesion. Additional CT findings included asymmetry and muc osal thickening of the distal sigmoid and proximal portion of the rectal ampulla. There was strandi ng in the fat adjacent to the rectal ampulla and proximal sigmoid colon with no evidence of microper foration. There was no enlarged periportal, retroperitoneal, mesenteric, pelvic sidewall or inguina l lymphadenopathy. No suspicious findings were described involving the liver or adrenal glands. A barium enema was performed on 03/23/2016 and significant for segmental irregular colonic luminal pavan rowing and ulceration in the region of the rectosigmoid junction. There is no evidence of contrast extravasation. No additional mucosal abnormalities were identified throughout the remainder of the colon. An MRI of the pelvis was performed on 03/23/2016 and again described a long segment of abnor mal mural thickening involving the upper rectum over a length of 7 cm. The mass began approximately 13 cm from the anal verge. There was extension of tumor into the adjacent mesorectal fat with invo lvement of the circumferential resection margin. There was also suspected involvement of the perito tessa reflection but no involvement of the sphincter. There was no observed mesorectal or pelvic lym phadenopathy. The patient denies any new urinary or vaginal issues. No discharge or bleeding. No dysuria, hematu madelyn or incontinence. She denies any back or sciatic pain. She denies leg swelling. PAST MEDICAL HISTORY: Subclinical hypothyroidism, memory impairment, Clostridium difficile. PAST SURGICAL HISTORY: Cholecystectomy and appendectomy. ALLERGIES TO MEDICATIONS: NONE. CURRENT MEDICATIONS: 1. MiraLax. 2. Protonix. 3. Biaxin. 4. Flagyl. 5. Pepcid. 6. Morphine sulfate p.r.n. 7. Zofran p.r.n. 8. Augmentin. 9. Lovenox. SOCIAL HISTORY: She is seen today with her daughter, who is a nurse. They do live in the [facility]. No significant history of tobacco or alcohol use. FAMILY HISTORY: No family history of colon or uterine cancer. REVIEW OF SYSTEMS: GENERAL: No fevers, chills or sweats. Fatigue noted. EARS, NOSE, THROAT: No ____ history of hoarseness or xerostomia. RESPIRATORY: No shortness of breath, cough, hemoptysis or wheezing. CARDIOVASCULAR: No chest pain, palpitations, heart attacks or strokes. GASTROINTESTINAL: As above. ENDOCRINE: No history of diabetes. SKIN: No history of lupus, scleroderma or shingles. MUSCULOSKELETAL: Denies any new back or rib pain. PHYSICAL EXAMINATION: GENERAL: A well-developed older female in no distress. VITAL SIGNS: Stable. Afebrile. HEENT: Normocephalic, atraumatic. Sclerae anicteric. NODES: No cervical, supraclavicular or axillary adenopathy. LUNGS: Clear without wheezes. ABDOMEN: Soft with mild tenderness in the left lower quadrant. No rebound, guarding. No palpable masses. EXTREMITIES: No cyanosis or edema. RECTAL: Examination not performed. IMPRESSION: The patient is a 60-year-old female who was recently diagnosed with a clinical stage T3 N0 adenocarcinoma of the rectosigmoid. PLAN: I am trying to retrieve the pertinent notes from [facility]. This also includ es a biopsy of a thyroid abnormality. The patient may need further workup regarding her breast lesi on. It is my understanding that there was a recommendation from [facility] to proceed wit h a diverting colostomy, but Dr. Rodriguez does not feel that this is necessary as the patient is movi ng her bowels reasonably well while on MiraLax. Thus, I do agree with the recommendations of others that the patient would benefit from neoadjuvant chemoradiation with 5-1/2 weeks of pelvic radiation in conjunction with oral Xeloda. The nature of actual risks and benefits of the treatment were rev iewed with the patient and family. Questions were answered. Side effects were reviewed. This incl uded but was not limited to discussion of the potential for fatigue, skin reaction, cramping, diarrh ea, proctitis, rectal bleeding, irritative voiding symptoms, vaginal fibrosis and stenosis, bowel ob struction and bowel perforation. I also informed the daughter that if the patient were to develop a cute swelling from treatment that caused a complete obstruction, then an urgent diversion may be nec essary. I will have my office submit for the appropriate authorization for treatment. The patient would the n be scheduled for CT simulation for planning purposes. Treatment would then be coordinated to star t concurrently with Xeloda when this is also available. I did give the family an option to have rad iation treatment provided close to home at the [facility] facility, but they have declined for now. Dictated By: WENDY HENAO/JIGAR Conf#: [id number] DID#: [id number] CC: ANA SHARP MD; LINETTE RODRIGUEZ MD;*EndCC*
== END 2016-03-23 18:32 | disposition home or self-care (01) | DRG 374 ==
LOC: E/R 10:58 → PP2 16:38
PROVIDERS: ADMIT Family Medicine; ATTEND Family Medicine
PROC: 0HBU3ZX Excision of Left Breast, Percutaneous Approach, Diagnostic (ICD-10-PCS; principal; 2016-03-20)
DX: C19 Malignant neoplasm of rectosigmoid junction (principal); K85.90 Acute pancreatitis without necrosis or infection, unspecified; K63.1 Perforation of intestine (nontraumatic); A04.8 Other specified bacterial intestinal infections; A04.7 Enterocolitis due to Clostridium difficile; N63 Unspecified lump in breast; E03.8 Other specified hypothyroidism; E07.9 Disorder of thyroid, unspecified; R41.3 Other amnesia; E88.09 Other disorders of plasma-protein metabolism, not elsewhere classified; K83.8 Other specified diseases of biliary tract
CPT/HCPCS: 72196; 74000; 74177; 74270; 80048; 80053; 81001; 81003; 83690; 83735; 85025; 87075; 88307; 93005; 96374; J1335; J1650; J2270; J2405; J3480; J7030; Q9967

== ENCOUNTER 2016-08-10 09:55 | Inpatient (IN) | payer BC ==
[2016-08-09 10:57] VITALS: BMI 24.6
[2016-08-10] VITALS (25 sets, daily range): BP systolic 125–159; BP diastolic 48–79; PULSE 60–77; RESP 12–20; Ht 154.9 cm; Wt 63.7 kg
[~2016-08-10] VITALS: Ht 154.9 cm; Wt 63.7 kg
[~2016-08-10 09:55] MED LIST: AMOX1TAB10 PO; CLAR500T PO; METR500T14 PO; PANT40TA3 PO; POLY17PO6 PO
[2016-08-10] MEDS ORDERED: CEFAZOLIN 2 GM/50 ML (PMX) 50 ML IVPB ONE (11:00)
[2016-08-10] MEDS ORDERED: metroNIDAZOLE 500 MG/NS (PMX) 100 ML IVPB ONE ×2 (11:00→13:18)
[2016-08-10] MEDS ORDERED: LACTATED RINGER'S 1,000 ML IV* SCH (11:00)
[2016-08-10] MEDS ORDERED: ROCURONIUM 50 MG INJ ONE ×2 (11:49→14:59)
[2016-08-10] MEDS ORDERED: LIDOCAINE 2% (SDV) 5 ML INJ ONE (11:49)
[2016-08-10] MEDS ORDERED: FENTAnyl 50 MCG/ML VIAL ONE (11:49)
[2016-08-10] MEDS ORDERED: PROPOFOL 20 ML ONE (11:49)
[2016-08-10] MEDS ORDERED: MIDAZOLAM 1 MG/ML 2 ML INJ ONE (11:49)
--- NOTE | 2016-08-10 12:44 | HPN ---
Date/Time of Note Date/Time of Note DATE: 08/10/16 TIME: 12:43 Interval H&P Admission Note Pt. seen H&P reviewed: No system changes YASMIN GREWAL MD Aug 10, 2016 12:44
[2016-08-10] MEDS ORDERED: CEFAZOLIN 1 GM INJ ONE (13:18)
[2016-08-10] MEDS ORDERED: ONDANSETRON 4 MG INJ ONE (13:18)
[2016-08-10] MEDS ORDERED: DEXAMETHASONE 4 MG/ML 1 ML INJ ONE (13:19)
[2016-08-10] MEDS ORDERED: ACETAMINOPHEN 1000MG/100ML IV 100 ML ONE (13:25)
[2016-08-10] MEDS ORDERED: HYDROmorphONE 2 MG/ML SYG ONE (13:51)
[2016-08-10] MEDS ORDERED: BUPIVACAINE 0.5% ON-Q-PUMP 270 ML ONE (14:48)
[2016-08-10] MEDS ORDERED: DIPHENHYDRAMINE 50 MG INJ IV PRN (15:00)
[2016-08-10] MEDS ORDERED: LABETALOL HCL 20MG INJ IV PRN (15:00)
[2016-08-10] MEDS ORDERED: FENTAnyl 50 MCG/ML VIAL IV PRN (15:00)
[2016-08-10] MEDS ORDERED: EPHEDrine SULFATE 50 MG/5 ML SYG IV PRN (15:00)
[2016-08-10] MEDS ORDERED: MEPERIDINE 25 MG INJ IV PRN (15:00)
[2016-08-10] MEDS ORDERED: hydrALAzine 20 MG INJ IV PRN (15:00)
[2016-08-10] MEDS ORDERED: PROCHLORPERAZINE 10 MG INJ IV PRN (15:00)
[2016-08-10] MEDS ORDERED: ONDANSETRON 4 MG INJ IV PRN ×2 (15:00→16:30)
[2016-08-10] MEDS ORDERED: HYDROmorphONE (0.2 MG/ML) 10ML SYG IV PRN ×2 (15:00)
[2016-08-10] MEDS ORDERED: BUPIVACAINE 0.5% (SDV) 30 ML INJ ONE (15:30)
[2016-08-10] MEDS ORDERED: GLYCOPYRROLATE 0.4 MG INJ ONE (15:35)
[2016-08-10] MEDS ORDERED: NEOSTIGMINE 3 MG/3 ML SYRINGE ONE (15:35)
--- NOTE | 2016-08-10 16:17 | OPR ---
Date/Time of Note Date/Time of Note DATE: 08/10/16 TIME: 16:13 Operative Report Preoperative Diagnosis Rectal cancer Postoperative Diagnosis Rectal cancer Operation/Procedure Performed 1. Low anterior resection of rectum 2. Diverting loop ileostomy 3. Rigid proctosigmoidoscopy 4. Placement of a subfascial postop pain pump Surgeon: YASMIN GREWAL MD directory assistance operator: JACKIE DUMONT M.D. Anesthesia: general, other Estimated Blood Loss: 100 - 150 ml's Specimens 1. Rectum 2. Anastomotic Donut Complications: None YASMIN GREWAL MD Aug 10, 2016 16:16
[2016-08-10] MEDS ORDERED: HYDROmorphONE 1 MG/ML SYG IV PRN (16:30)
[2016-08-10] MEDS: ACETAMINOPHEN 1000MG/100ML IV 100 ML IVPB SCH ×2 (16:54→22:22)
[2016-08-10] MEDS: CEFAZOLIN 2 GM/50 ML (PMX) 50 ML IVPB SCH ×2 (16:57→23:55)
[2016-08-10 16:58] LABS: ABNORMAL IP MESSAGE 1; HEMOGLOBIN 11.8 g/dl (12.0-16.0); MEAN CORPUSCULAR HEMOGLOBIN 30.8 pg (29.0-33.0); MEAN CORPUSCULAR HGB CONC 32.8 g/dl (32.0-37.0); MEAN PLATELET VOLUME 9.8 fl (7.4-10.4); PLATELET COUNT 221 10^3/UL (140-415); RED BLOOD COUNT 3.83 10^6/ul (4.20-5.40); RED CELL DISTRIBUTION WIDTH 13.3 % (11.5-14.5); WHITE BLOOD COUNT 11.3 10^3/ul (4.8-10.8)
[2016-08-10 17:00] LABS: ADD SCAN DIFF NO
[2016-08-10] MEDS ORDERED: BUPIVACAINE 0.5% ON-Q-PUMP SCH (17:00)
[2016-08-10] MEDS ORDERED: ON Q PUMP ON-Q-PUMP SCH (17:00)
[2016-08-10 17:17] LABS: LYMPHOCYTES # 0.1 10^3/ul (0.8-2.9); MONOCYTE # 0.1 10^3/ul (0.3-0.9); NEUTROPHIL # 11.1 10^3/ul (1.6-7.5)
[2016-08-10 17:18] LABS: CALCIUM 8.8 mg/dl (8.4-10.2); CREATININE 0.61 mg/dl (0.44-1.00); POTASSIUM 3.6 mmol/L (3.5-5.1)
[2016-08-10] MEDS: D5-NS + KCL 20 MEQ 1,000 ML IV SCH (18:21)
--- NOTE | 2016-08-10 19:15 | OPR ---
Date/Time of Note Date/Time of Note DATE: 08/10/16 TIME: 18:55 Operative Report Procedure Date: Aug 10, 2016 Preoperative Diagnosis Rectal cancer Postoperative Diagnosis Rectal cancer Operation Performed 1. Low anterior resection of rectum 2. Diverting loop ileostomy 3. Rigid proctosigmoidoscopy 4. Placement of a subfascial postop pain pump Surgeon: YASMIN GREWAL MD historian research assistant: JACKIE DUMONT M.D. Anesthesia: general, other Estimated Blood Loss: 100 - 150 ml's Specimens 1. Rectum 2. Anastomotic Donut Complications: None Pt Condition Post Procedure: stable Disposition: PACU Indications 61 y/o s/p neoadjuvant chemotherapy and radiation therapy for rectal cancer presents for definitive rectal resection. Operative\Procedure Findings Tumor in proximal rectum. Procedure Description DESCRIPTION OF PROCEDURE: The patient was brought to the operating room, placed in supine position on the operating room table. Next after successful administration of general endotracheal anesthesia, the patient was repositioned in the low lithotomy position using Kingsley stirrups. After surgical time-out and administration of perioperative antibiotics, the patient's anterior abdomen, perineum and perianal skin were prepped and draped in the usual sterile fashion and a Purvis urinary catheter was placed under sterile technique. Next, a transverse incision was made approximately 2 fingerbreadths above the patient's pubic symphysis. This incision is approximately 6 cm in length. After making the skin incision with a scalpel, Bovie electrocautery was utilized to dissect downward to reveal the anterior rectus sheath. This was opened transversely using Bovie electrocautery. Next, the anterior rectus sheath was then from the rectus musculature superiorly and inferiorly using electrocautery while tenting up the anterior rectus sheath using Sylvain clamps. The abdomen was then entered in the midline and then making a longitudinal incision between the rectus muscles, taking care not to injure any intraabdominal organs. This was done successfully. Through this Pfannenstiel type incision an Applied wound retractor was then placed for circumferential wound retraction. We then explored the abdomen through this Pfannenstiel incision and there was no evidence of metastatic disease. Next moist laparotomy pads were then utilized to pack the patient's small intestine out of the pelvis and she was repositioned in the Trendelenburg position. Careful examination of the sigmoid colon revealed a palpable mass in the proximal rectum. We then elected to proceed with a low anterior resection via the Pfannenstiel incision due to the extensive redundancy of the patient's sigmoid colon. Next, we divided the bowel using a Contour stapling device at the distal sigmoid colon and then used a LigaSure tissue sealing device to divide the sigmoid mesentery towards the root of the superior rectal artery as it came off the inferior mesenteric artery. The proximal colon was then packed off into the upper abdomen again using moist laparotomy pads and we were able to carefully isolate the superior rectal artery and vein. In so doing, we also identified and preserved the right and left ureters. Careful dissection allowed us to enter the presacral plane inferior to the superior rectal artery and vein using Bovie electrocautery. In so doing, we had circumferentially isolated this vascular bundle. This was then ligated using the LigaSure tissue sealant device and a 2- 0 Vicryl suture was then passed around the vessels proximally and tied as well. Now that the vascular pedicle to the rectum had been divided, we continued our dissection downward to a point approximately 3 cm distal to the palpable rectal lesion. This corresponded to the junction between the patient's mid- rectum. At this point, we divided the rectal mesentery using both Bovie electrocautery and the LigaSure tissue sealant device. Another firing of the contour bowel stapler was utilized to divide the distal rectum at our distal dissection point of the bowel. In so doing, the rectum was then freed and passed off the surgical field. It was examined by a pathologist in the operating room and revealed grossly clear circumferential margins and clear proximal and distal margins. We then examined the patient's pelvis for bleeding and when none was found, we proceeded to perform end-to-end anastomosis between the sigmoid colon and the rectum. This was done by draping off the patient's anterior abdomen with sterile towels placing an auto pursestring suture device on the divided sigmoid colon and removing the stapled end. An anvil from a 29 mm EEA stapler was then placed into the colon and secured using the accompanying nylon suture. Next, we then passed the corresponding stapler through the patient's anus into the rectum and performed an end-to-end anastomosis between the colon and the rectum using the standard technique. Once this was accomplished, we found 2 anastomotic donuts within the stapler. The distal donut was sent off as a surgical specimen. We then submerged the colorectal anastomosis using sterile water in the pelvis and clamped the bowel proximal to the anastomosis. A rigid proctosigmoidoscopy was then performed to examine the colorectal anastomosis. The anastomosis was found to be 8 cm from the anal verge and healthy mucosa was found up to and including the stapled anastomosis. No bubbles were seen coming from the submerged, pressurized colorectal anastomosis. The bowel was decompressed via the proctoscope and it was removed. Now that the proximal rectum had been removed and the colorectal anastomosis was accomplished, we suctioned the patient's pelvis until dry and removed all laparotomy pads and instruments from the patient's abdomen. We then created a diverting loop ileostomy. This was done by making a circular incision in the right lower quadrant of the abdominal wall, removing the subcutaneous fat and dividing the anterior rectus sheath with a cruciate incision and the posterior rectus sheath with a longitudinal incision. Once two fingers could be passed through this incision, a loop of distal ileum was pulled through and secured temporarily with a Camryn clamp. Next, we proceeded to close the Pfannenstiel incision. We closed the peritoneum using a running 2-0 Vicryl suture and then placed 2 On-Q pain pump catheters in the subfascial plane above the rectus musculature, but below the anterior rectus sheath. Once these [address], we closed the anterior rectus sheath using a running #0 PDS suture. Tapan's fascia was reapproximated using interrupted 2-0 Vicryl suture and the skin incision was closed using a running 4-0 Monocryl stitch in the subcuticular fashion. Dermabond skin adhesive was applied to the skin edges as well as to the point of which the pain pump catheters emerged from the patient's anterior abdominal wall. A total of 10 mL of 0.5% Marcaine without epinephrine was injected into the subfascial plane via the pain pump catheters. The wounds were then covered the incision with sterile towels and we matured the ileostomy. We opened the ileum, removed the Camryn clamp and matured the proximal end of bowel in such a fashion that it extended 2-3 cm beyond the skin edge. After using 3-0 chromic suture to mature the loop ileostomy, a stoma appliance was placed over the ileostomy and the procedure was complete. The patient was then returned to the supine position on the operating room table. All counts were correct. Anesthesia was discontinued and she was extubated in the operating room without complication. She was then transferred to recovery room in stable condition. FLUIDS: 1200 mL of crystalloid URINE OUTPUT: 100 mL. ESTIMATED BLOOD LOSS: 100 mL. COMPLICATIONS: None. SPECIMENS: RECTUM, ANASTOMOTIC DONUT. YASMIN GREWAL MD Aug 10, 2016 19:15
[2016-08-10] MEDS: metroNIDAZOLE 500 MG/NS (PMX) 100 ML IVPB SCH (20:39)
[2016-08-10] MEDS: FAMOTIDINE 20 MG INJ IV SCH (20:40)
[2016-08-11 00:15] VITALS: BP 134/61; RESP 20
[2016-08-11] MEDS: D5-NS + KCL 20 MEQ 1,000 ML IV SCH ×4 (02:04→18:45)
[2016-08-11] MEDS: ACETAMINOPHEN 1000MG/100ML IV 100 ML IVPB SCH ×4 (04:30→23:22)
[2016-08-11] MEDS: metroNIDAZOLE 500 MG/NS (PMX) 100 ML IVPB SCH ×2 (04:49→12:38)
[2016-08-11 05:14] LABS: ABNORMAL IP MESSAGE 1; HEMATOCRIT 34.4 % (37.0-47.0); HEMOGLOBIN 11.1 g/dl (12.0-16.0); LYMPHOCYTES # 0.5 10^3/ul (0.8-2.9); LYMPHOCYTES % 6.6 % (15.0-51.0); MEAN CORPUSCULAR HEMOGLOBIN 30.4 pg (29.0-33.0); MEAN CORPUSCULAR HGB CONC 32.3 g/dl (32.0-37.0); MEAN CORPUSCULAR VOLUME 94.2 fl (82.0-101.0); MEAN PLATELET VOLUME 9.8 fl (7.4-10.4); MONOCYTE # 0.3 10^3/ul (0.3-0.9); MONOCYTES % 4.9 % (0.0-11.0); NEUTROPHILS % 88.2 % (39.0-77.0); PLATELET COUNT 216 10^3/UL (140-415); RED BLOOD COUNT 3.65 10^6/ul (4.20-5.40); RED CELL DISTRIBUTION WIDTH 13.2 % (11.5-14.5); WHITE BLOOD COUNT 6.8 10^3/ul (4.8-10.8)
[2016-08-11 05:17] VITALS: BP 135/64; PULSE 74; RESP 18
[2016-08-11 05:18] LABS: ADD SCAN DIFF NO
[2016-08-11 05:49] LABS: CREATININE 0.66 mg/dl (0.44-1.00); POTASSIUM 4.5 mmol/L (3.5-5.1)
[2016-08-11] MEDS: ENOXAPARIN 30 MG/0.3 ML SYG SC SCH (06:46)
[2016-08-11 07:00] VITALS: BP 119/58; RESP 18
[2016-08-11] MEDS: FAMOTIDINE 20 MG INJ IV SCH ×2 (08:11→21:04)
[2016-08-11] MEDS: CEFAZOLIN 2 GM/50 ML (PMX) 50 ML IVPB SCH (08:11)
--- NOTE | 2016-08-11 08:31 | PN ---
Date/Time of Note Date/Time of Note DATE: 08/11/16 TIME: 08:26 Assessment/Plan VTE Prophylaxis VTE Prophylaxis Intervention: ambulation, LMWH, SCD's Lines/Catheters IV Catheter Type (from Nrs): Saline Lock Urinary Cath still in place: Yes Reason Cath still needed: other (indicate) Assessment/Plan Chief Complaint/Hosp Course 61YO Woman h/o rectal CA s/p LAR with DLI now POD1. Doing very well, denies CP/ SOB/F/C/NV. VS OK, making good urine. Abd soft, appropriately TTP, wounds OK, stoma pink with some gas and stool in bag. Plan is clears, OOB, keep richey for now because of pelvic surgery. Will decrease IVF if tolerating clears. Lovenox , SCD for DVT PPX. Problems: Subjective 24 Hr Interval Summary Free Text/Dictation Pt states she's OK. No CP/SOB/F/C/NV. States no abdominal pain. Wants to drink. Respiratory: no complaints Cardiovascular: no complaints Gastrointestinal: no complaints Exam/Review of Systems Vital Signs Vitals Vital Signs Date Time Temp Pulse Resp B/P Pulse Ox O2 Delivery O2 Flow Rate FiO2 08/11/16 07:00 98.4 73 18 119/58 96 08/11/16 05:17 Room Air 08/10/16 22:30 2.0 Intake and Output 08/10/16 08/10/16 08/11/16 15:00 23:00 07:00 Intake Total 1300 ml 490 ml Output Total 200 ml 1100 ml Balance 1100 ml -610 ml Exam Constitutional: alert Respiratory: clear to auscultation Cardiovascular: nl pulses, regular rate and rhythm Gastrointestinal: soft, tender (Mildly TTP at wound, Wound C/D/I, stoma pink with scant stool and gas in bag) Results Result Diagram: 08/11/16 0425 08/11/16 0425 Results 24 hrs Laboratory Tests Test 08/10/16 16:40 08/11/16 04:25 08/11/16 07:24 White Blood Count 11.3 #H 6.8 # Red Blood Count 3.83 L 3.65 L Hemoglobin 11.8 L 11.1 L Hematocrit 36.0 L 34.4 L Mean Corpuscular Volume 94.0 94.2 Mean Corpuscular Hemoglobin 30.8 30.4 Mean Corpuscular Hemoglobin Concent 32.8 32.3 Red Cell Distribution Width 13.3 13.2 Platelet Count 221 216 Mean Platelet Volume 9.8 9.8 Neutrophils % 98.0 H 88.2 H Lymphocytes % 1.0 L 6.6 L Monocytes % 1.0 4.9 Neutrophils # 11.1 H 6.0 Lymphocytes # 0.1 L 0.5 L Monocytes # 0.1 L 0.3 Sodium Level 139 142 Potassium Level 3.6 4.5 Chloride Level 106 108 Carbon Dioxide Level 25 27 Anion Gap 12 12 Blood Urea Nitrogen 13 12 Creatinine 0.61 0.66 Glucose Level 136 154 Calcium Level 8.8 9.0 Eosinophils % 0.0 Basophils % 0.0 Nucleated Red Blood Cells % 0.0 Eosinophils # 0.0 Basophils # 0.0 Nucleated Red Blood Cells # 0.0 Lab Scanned Report REFERENCE LAB Medications Medications Current Medications Cefazolin Sodium/ Dextrose 50 ml @ 100 mls/hr Q8H IVPB Last administered on 08:11; Admin Dose 100 MLS/HR; Start 08/10/16 at 16:30; Stop 08/11/16 at 16 :29 Metronidazole (Flagyl 500 Mg (Pmx)) 100 ml @ 100 mls/hr Q8H IVPB Last administered on 08/11/16 04:49; Admin Dose 100 MLS/HR; Start 08/10/16 at 21:00; Stop 08/11/16 at 20:59 Hydromorphone HCl (Dilaudid) 0.5 mg Q6H PRN IV PAIN LEVEL 6-10; Start 08/10/16 at 16:30 Ketorolac Tromethamine (Toradol) 30 mg Q6H PRN IV PAIN; Start 08/10/16 at 16:30 ; Stop 08/13/16 at 16:29 Ondansetron HCl (Zofran Inj) 4 mg Q6H PRN IV NAUSEA AND/OR VOMITING; Start at 16:30 Famotidine 20 mg 20 mg Q12 IV Last administered on 08/11/16 08:11; Admin Dose 20 MG; Start 08/10/16 at 21:00 Potassium Chloride/Dextrose/ Sod Cl (D5-NS + KCl 20 Meq) 1,000 ml @ 100 mls/hr Q10H IV Last administered on 08/11/16 08:13; Admin Dose 100 MLS/HR; Start 08/10 at 16:04 Enoxaparin Sodium 30 mg 30 mg DAILY@07 SC Last administered on 08/11/16 06:46; Admin Dose 30 MG; Start 08/11/16 at 07:00 Acetaminophen (Ofirmev 1000mg/ 100ml Iv) 100 ml @ 400 mls/hr Q6H IVPB Last administered on 08/11/16 04:30; Admin Dose 400 MLS/HR; Start 08/10/16 at 16:30 JACKIE DUMONT M.D. Aug 11, 2016 08:30
[2016-08-11] MEDS: KETOROLAC 30 MG INJ IV PRN (12:39)
[2016-08-11 19:37] VITALS: BP 135/63; RESP 15
[2016-08-12] MEDS: D5-NS + KCL 20 MEQ 1,000 ML IV SCH (01:34)
[2016-08-12] MEDS: ACETAMINOPHEN 1000MG/100ML IV 100 ML IVPB SCH (05:44)
[2016-08-12] MEDS: ENOXAPARIN 30 MG/0.3 ML SYG SC SCH (07:23)
[2016-08-12 07:42] VITALS: BP 174/76; RESP 18
[2016-08-12] MEDS: FAMOTIDINE 20 MG INJ IV SCH ×2 (08:21→20:16)
[2016-08-12 08:28] VITALS: BP 153/71; PULSE 78
[2016-08-12] MEDS ORDERED: ACETAMINOPHEN 325 MG TAB PO PRN (08:30)
[2016-08-12] MEDS ORDERED: HYDROCODONE/APAP (5/325) TAB PO PRN (08:30)
--- NOTE | 2016-08-12 08:30 | PN ---
Date/Time of Note Date/Time of Note DATE: 08/12/16 TIME: 08:27 Assessment/Plan VTE Prophylaxis VTE Prophylaxis Intervention: ambulation, LMWH, SCD's Lines/Catheters IV Catheter Type (from Nrsg): Saline Lock Urinary Cath still in place: No Assessment/Plan Chief Complaint/Hosp Course 61YO Woman h/o rectal CA s/p LAR with DLI now POD2. Doing very well, denies CP/ SOB/F/C/NV. VS OK, one episode of HTN, will watch. Urinated after richey removal. Abd soft, appropriately TTP, wounds OK, stoma pink with some gas and stool in bag. Plan is soft diet, OOB, PO Tylenol or [place] for pain. D/C IVF. Lovenox, SCD for DVT PPX. Possible D/C tomorrow if doing well and gets ostomy training and home health care. Problems: Subjective 24 Hr Interval Summary Free Text/Dictation 61YO Woman h/o rectal CA s/p LAR and DLI now POD2. Doing well, tolerating fulls , having function in ostomy. Pain is controlled. Pt denies CP/SOB/F/C/NV. Urinating after richey removed. Wants to eat. Constitutional: no complaints Cardiovascular: no complaints Gastrointestinal: no complaints Genitourinary: no complaints Exam/Review of Systems Vital Signs Vitals Vital Signs Date Time Temp Pulse Resp B/P Pulse Ox O2 Delivery O2 Flow Rate FiO2 08/12/16 07:42 98.4 70 18 174/76 98 08/11/16 05:17 Room Air 08/10/16 22:30 2.0 Intake and Output 08/11/16 08/11/16 08/12/16 15:00 23:00 07:00 Intake Total 1150 ml 1200 ml 400 ml Output Total 1600 ml Balance 1150 ml 1200 ml -1200 ml Exam Constitutional: alert Respiratory: clear to auscultation Cardiovascular: regular rate and rhythm Gastrointestinal: other (Mildly appropriately TTP at wound. Stoma pink with stool and gas in bag. ONQ in place. ), soft Results Result Diagram: 08/11/16 0425 08/11/16 0425 Medications Medications Current Medications Hydromorphone HCl (Dilaudid) 0.5 mg Q6H PRN IV PAIN LEVEL 6-10; Start 08/10/16 at 16:30 Ketorolac Tromethamine (Toradol) 30 mg Q6H PRN IV PAIN Last administered on 08/11 12:39; Admin Dose 30 MG; Start 08/10/16 at 16:30; Stop 08/13/16 at 16:29 Ondansetron HCl (Zofran Inj) 4 mg Q6H PRN IV NAUSEA AND/OR VOMITING; Start at 16:30 Famotidine 20 mg 20 mg Q12 IV Last administered on 08/11/16 21:04; Admin Dose 20 MG; Start 08/10/16 at 21:00 Potassium Chloride/Dextrose/ Sod Cl (D5-NS + KCl 20 Meq) 1,000 ml @ 50 mls/hr Q20H IV Last administered on 08/11/16 18:45; Admin Dose 50 MLS/HR; Start at 16:04 Enoxaparin Sodium 30 mg 30 mg DAILY@07 SC Last administered on 08/12/16 07:23; Admin Dose 30 MG; Start 08/11/16 at 07:00 Acetaminophen (Ofirmev 1000mg/ 100ml Iv) 100 ml @ 400 mls/hr Q6H IVPB Last administered on 08/12/16 05:44; Admin Dose 400 MLS/HR; Start 08/10/16 at 16:30 JACKIE DUMONT M.D. Aug 12, 2016 08:30
[2016-08-12] MEDS ORDERED: traMADol 50 MG TAB PO PRN ×3 (19:00)
[2016-08-12 19:35] VITALS: BP 158/72; RESP 18
[2016-08-12] MEDS: KETOROLAC 30 MG INJ IV PRN (20:16)
[2016-08-13 05:45] LABS: BASOPHILS % 0.5 % (0.0-2.0); EOSINOPHILS # 0.1 10^3/ul (0.0-0.5); EOSINOPHILS % 2.9 % (0.0-7.0); HEMATOCRIT 31.3 % (37.0-47.0); HEMOGLOBIN 10.1 g/dl (12.0-16.0); LYMPHOCYTES # 0.7 10^3/ul (0.8-2.9); LYMPHOCYTES % 17.2 % (15.0-51.0); MEAN CORPUSCULAR HEMOGLOBIN 30.6 pg (29.0-33.0); MEAN CORPUSCULAR HGB CONC 32.3 g/dl (32.0-37.0); MEAN CORPUSCULAR VOLUME 94.8 fl (82.0-101.0); MEAN PLATELET VOLUME 10.2 fl (7.4-10.4); MONOCYTE # 0.4 10^3/ul (0.3-0.9); MONOCYTES % 9.3 % (0.0-11.0); NEUTROPHIL # 2.9 10^3/ul (1.6-7.5); NEUTROPHILS % 69.9 % (39.0-77.0); PLATELET COUNT 214 10^3/UL (140-415); RED CELL DISTRIBUTION WIDTH 13.2 % (11.5-14.5); WHITE BLOOD COUNT 4.2 10^3/ul (4.8-10.8)
[2016-08-13 05:55] LABS: ADD SCAN DIFF NO
[2016-08-13 07:00] VITALS: BP 145/69; RESP 18
[2016-08-13] MEDS: ENOXAPARIN 30 MG/0.3 ML SYG SC SCH (07:20)
[2016-08-13] MEDS: FAMOTIDINE 20 MG INJ IV SCH (07:54)
[2016-08-13 08:16] LABS: CALCIUM 9.1 mg/dl (8.4-10.2); CREATININE 0.74 mg/dl (0.44-1.00); POTASSIUM 4.1 mmol/L (3.5-5.1)
--- NOTE | 2016-08-13 09:10 | PN ---
Date/Time of Note Date/Time of Note DATE: 08/13/16 TIME: 09:06 Assessment/Plan VTE Prophylaxis VTE Prophylaxis Intervention: ambulation, LMWH, SCD's Lines/Catheters IV Catheter Type (from Nrsg): Saline Lock Urinary Cath still in place: No Assessment/Plan Chief Complaint/Hosp Course 61YO Woman h/o rectal CA s/p LAR with DLI now POD2. Doing very well, denies CP/ SOB/F/C/NV. VS OK, one episode of HTN, will watch. Urinated after richey removal. Abd soft, appropriately TTP, wounds OK, stoma pink with some gas and stool in bag. Plan is soft diet, OOB, PO Tylenol or [place] for pain. D/C IVF. Lovenox, SCD for DVT PPX. Possible D/C tomorrow if doing well and gets ostomy training and home health care. Problems: Assessment/Plan 61YO Woman h/o rectal CA POD3 LAR and DLI doing very well. OOB, pain controlled , denies NV/F/C/SOB/CP. Tolerating diet. VS OK, labs OK (WBC 4.2, daughter reports baseline around 3). Pt and family wants to go home. Plan is to get ostomy nurse to see and case mgmt to get home health nurse. Will write Rx for Tramadol. Plan is to go home, two long walks per day, no heavy lifting or driving. To call/go to ER if F/C/bilious emesis/severe abdominal pain/erythema and tenderness around wound. F/U with Dr. Lovell in ~ 1 week. Subjective 24 Hr Interval Summary Free Text/Dictation 61YO Woman h/o rectal CA s/p LAR and DLI now POD3. Doing very well, tolerating diet, OOB, urinating, ostomy functioning. Some pain around stoma but not debilitating. Denies CP/SOB/F/C/NV. Constitutional: no complaints Respiratory: no complaints Cardiovascular: no complaints Gastrointestinal: pain (mild) Exam/Review of Systems Vital Signs Vitals Vital Signs Date Time Temp Pulse Resp B/P Pulse Ox O2 Delivery O2 Flow Rate FiO2 08/13/16 07:00 98.7 80 18 145/69 97 08/11/16 05:17 Room Air 08/10/16 22:30 2.0 Intake and Output 08/12/16 08/12/16 08/13/16 15:00 23:00 07:00 Intake Total 150 ml 1000 ml Output Total 2350 ml Balance 150 ml -1350 ml Exam Constitutional: alert, oriented Respiratory: clear to auscultation Cardiovascular: regular rate and rhythm Gastrointestinal: soft (Abdomen soft, mildly TTP at ostomy. Stoma pink with stool and gas in bag. Wound C/D/I. ONQ in place, easily removed and dressing placed) Results Result Diagram: 08/13/16 0434 08/13/16 0434 Results 24 hrs Laboratory Tests Test 08/13/16 04:34 White Blood Count 4.2 #L Red Blood Count 3.30 L Hemoglobin 10.1 L Hematocrit 31.3 L Mean Corpuscular Volume 94.8 Mean Corpuscular Hemoglobin 30.6 Mean Corpuscular Hemoglobin Concent 32.3 Red Cell Distribution Width 13.2 Platelet Count 214 Mean Platelet Volume 10.2 Neutrophils % 69.9 Lymphocytes % 17.2 Monocytes % 9.3 Eosinophils % 2.9 Basophils % 0.5 Nucleated Red Blood Cells % 0.0 Neutrophils # 2.9 Lymphocytes # 0.7 L Monocytes # 0.4 Eosinophils # 0.1 Basophils # 0.0 Nucleated Red Blood Cells # 0.0 Sodium Level 145 H Potassium Level 4.1 Chloride Level 107 Carbon Dioxide Level 24 Anion Gap 18 H Blood Urea Nitrogen 11 Creatinine 0.74 Glucose Level 77 Calcium Level 9.1 Medications Medications Current Medications Hydromorphone HCl (Dilaudid) 0.5 mg Q6H PRN IV PAIN LEVEL 6-10; Start 08/10/16 at 16:30 Ketorolac Tromethamine (Toradol) 30 mg Q6H PRN IV PAIN Last administered on 08/12 20:16; Admin Dose 30 MG; Start 08/10/16 at 16:30; Stop 08/13/16 at 16:29 Ondansetron HCl (Zofran Inj) 4 mg Q6H PRN IV NAUSEA AND/OR VOMITING; Start at 16:30 Famotidine (Pepcid Iv) 20 mg Q12 IV Last administered on 08/13/16 07:54; Admin Dose 20 MG; Start 08/10/16 at 21:00 Enoxaparin Sodium (Lovenox) 30 mg DAILY@07 SC Last administered on 08/13/16 07: 20; Admin Dose 30 MG; Start 08/11/16 at 07:00 Acetaminophen (Tylenol Tab) 650 mg Q6H PRN PO PAIN AND OR ELEVATED TEMP Last administered on 08/13/16 07:54; Admin Dose 650 MG; Start 08/12/16 at 08:30 Tramadol HCl (Ultram) 25 mg Q6H PRN PO MILD PAIN LEVEL 1-3; Start 08/12/16 at 19 :00 Tramadol HCl (Ultram) 50 mg Q6H PRN PO PAIN LEVEL 4-6; Start 08/12/16 at 19:00 JACKIE DUMONT M.D. Aug 13, 2016 09:10
[2016-08-13] MEDS ORDERED: TRAM50TA2 PO (09:12)
--- NOTE | 2016-08-13 09:12 | PDOCDIS ---
Discharge Instructions CONDITION Patient Condition: Good HOME CARE INSTRUCTIONS: Diet Instructions: RegularSpecial Diet: clear liq ACTIVITY: Activity Restrictions: Avoid heavy lifting Do not Drive Do not operate Machinery Do not operate Power Tool Avoid Heavy Housework Bathing Restrictions: Shower FOLLOW UP/APPOINTMENTS Follow-up Plan F/U with Dr. Lovell in ~ 1 week JACKIE DUMONT M.D. Aug 13, 2016 09:11
== END 2016-08-13 17:30 | disposition home health service (06) | DRG 331 ==
LOC: REC 09:55 → MS1 17:20
PROVIDERS: ADMIT Colon & Rectal Surgery; ATTEND Colon & Rectal Surgery
PROC: 0D1B0Z4 Bypass Ileum to Cutaneous, Open Approach (ICD-10-PCS; 2016-08-10)
PROC: 0DTP0ZZ Resection of Rectum, Open Approach (ICD-10-PCS; principal; 2016-08-10 12:00)
DX: C20 Malignant neoplasm of rectum (principal)
CPT/HCPCS: 80048; 85025; 86850; 86900; 86901; 87086; 88309; J0131; J0690; J1100; J1170; J1650; J1885; J2250; J2405; J2710; J3010; J3480

== ENCOUNTER → 2016-09-18 | Outpatient (CLI) | payer BC ==
[~2016-09-18] MED LIST changes: -AMOX1TAB10 PO; -CLAR500T PO; +DIATR MEGLU/DIATRIZOATE SODIUM 120 ML BTL ONE; -METR500T14 PO; -PANT40TA3 PO; -POLY17PO6 PO
--- NOTE | 2016-09-18 11:55 | RADRPT ---
PROCEDURE: Water soluble contrast enema. CLINICAL INDICATION: Abdomen pain. Recent rectosigmoid surgery. TECHNIQUE: Water-soluble contrast was administered via a rectal tube and several spot and overhead radiographs were obtained. COMPARISON: No prior study is available for comparison. FINDINGS: As requested, only the descending colon and rectosigmoid were evaluated. There is no obstruction. There is no mass. The anastomosis at the rectosigmoid region is intact with no extravasation of contrast. However, the re is narrowing of the lumen at the anastomotic site measuring approximately 0.8 cm in diameter. Fluoroscopy time is 0.1. 15 images were obtained. IMPRESSION: 1. Second anastomosis at the rectosigmoid region with no extravasation of contrast. 2. Narrowing of the lumen at the anastomotic site measuring approximately 0.8 cm in diameter. 3. Otherwise unremarkable study. RPTAT: QQ .Abiel Andrew MD, Date Time Electronically viewed and signed by .Abiel Andrew MD, on 09/18/2016 11:55 .R/
== END | disposition home or self-care (01) ==
LOC: RAD 09:18
PROVIDERS: ATTEND Colon & Rectal Surgery
DX: C20 Malignant neoplasm of rectum (principal)
CPT/HCPCS: 74270; Z7610

== ENCOUNTER 2016-10-05 10:26 | Inpatient (IN) | payer BC ==
[~2016-10-05] VITALS: Ht 160 cm; Wt 64.0 kg
[2016-10-05] VITALS (32 sets, daily range): BP systolic 128–176; BP diastolic 53–78; PULSE 72–89; RESP 16–24; Ht 160 cm; Wt 64.0 kg
[2016-10-05] MEDS ORDERED: CEFAZOLIN 2 GM/50 ML (PMX) 50 ML IVPB SCH (13:30)
[2016-10-05] MEDS ORDERED: Metronidazole 500 MG in NS 100 ML IVPB SCH (13:30)
[2016-10-05] MEDS ORDERED: LIDOCAINE 2% (SDV) 5 ML INJ ONE (13:51)
[2016-10-05] MEDS ORDERED: MIDAZOLAM 1 MG/ML 2 ML INJ ONE (13:51)
[2016-10-05] MEDS ORDERED: PROPOFOL 20 ML ONE (13:51)
[2016-10-05] MEDS ORDERED: ROCURONIUM 50 MG INJ ONE (13:51)
[2016-10-05] MEDS ORDERED: FENTAnyl 50 MCG/ML VIAL ONE ×2 (13:52→15:06)
--- NOTE | 2016-10-05 14:02 | HPN ---
Date/Time of Note Date/Time of Note DATE: 10/05/16 TIME: 14:01 Interval H&P Admission Note Pt. seen H&P reviewed: No system changes YASMIN GREWAL MD Oct 05, 2016 14:02
[2016-10-05] MEDS ORDERED: ONDANSETRON 4 MG INJ ONE (14:31)
[2016-10-05] MEDS ORDERED: metroNIDAZOLE 500 MG/NS (PMX) 100 ML IVPB ONE (14:31)
[2016-10-05] MEDS ORDERED: DEXAMETHASONE 4 MG/ML 1 ML INJ ONE ×2 (14:31→14:32)
[2016-10-05] MEDS ORDERED: CEFAZOLIN 1 GM INJ ONE (14:31)
[2016-10-05] MEDS ORDERED: METOCLOPRAMIDE 10 MG INJ ONE (14:31)
[2016-10-05] MEDS ORDERED: ACETAMINOPHEN 1000MG/100ML IV 100 ML ONE (14:35)
[2016-10-05] MEDS ORDERED: SUGAMMADEX SODIUM 200 MG/2 ML VIAL IV ONE (15:13)
[2016-10-05] MEDS ORDERED: BUPIVACAINE 0.25%/EPI (SDV) 30 ML INJ INJ ONE (15:28)
[2016-10-05] MEDS ORDERED: DIPHENHYDRAMINE 50 MG INJ IV PRN (15:30)
[2016-10-05] MEDS ORDERED: MEPERIDINE 25 MG INJ IV PRN (15:30)
[2016-10-05] MEDS ORDERED: HYDROmorphONE (0.2 MG/ML) 10ML SYG IV PRN ×2 (15:30)
[2016-10-05] MEDS ORDERED: PROCHLORPERAZINE 10 MG INJ IV PRN (15:30)
[2016-10-05] MEDS ORDERED: ONDANSETRON 4 MG INJ IV PRN ×2 (15:30→16:00)
[2016-10-05] MEDS ORDERED: oxyCODONE 5 MG TAB PO PRN ×2 (15:30)
[2016-10-05] MEDS ORDERED: BUPIVACAINE 0.25%/EPI (SDV) 30 ML INJ ONE (15:41)
--- NOTE | 2016-10-05 15:58 | OPR ---
Date/Time of Note Date/Time of Note DATE: 10/05/16 TIME: 15:53 Operative Report Procedure Date: Oct 05, 2016 Preoperative Diagnosis Rectal cancer, ileostomy Postoperative Diagnosis Rectal cancer, ileostomy, peristomal hernia Operation Performed Ileostomy closure Surgeon: YASMIN GREWAL MD Anesthesia Type: general Estimated Blood Loss: minimal Transfusion Required: no Specimens Ileostomy, hernia sac Grafts/Implants: none Complications: no Pt Condition Post Procedure: stable Disposition: PACU Indications Loop ileostomy s/p low anterior resection of rectum. Operative\Procedure Findings Loop ileostomy with peristomal hernia Procedure Description The patient was brought to the operating room and placed on the operating table in the supine procedure. Next, general endotracheal anesthesia was established without complication. The abdomen was then prepped and draped in the usual sterile fashion. Following the surgical timeout and completion of the surgical checklist, and administration of preoperative antibiotics, a circumferential incision was made with cutting electrocautery at the mucocutaneous junction of the ileostomy. Next, a circumferential scissors dissection was carried out to free the loop of bowel forming the ileostomy from the surrounding skin, fat, fascia, muscle and peritoneum until the loop was completely free of adhesions and easily delivered onto the abdominal surface. In so doing, a peristomal hernia was encountered. Next, points were chosen for the anastomosis 2-4 cm on either side of the ileostomy where the bowel was unaffected by prior adhesions. The bowel was cleaned off circumferentially at these 2 points and the intervening mesentery was isolated and divided using vicryl suture and scissors. The small bowel was opened at the 2 points chosen with excellent bleeding from both sides. An 75 mm MARIAM stapler was then used to create a side to side anastomosis between the two portions of small bowel. The anastomosis was then examined using an empty ring forceps and there was no bleeding and the mucosa was pink and healthy. Next the enterostomy was closed and the ileostomy was resected using another firing of an 75 mm MARIAM stapler. A palpable anastomosis was felt after this was done. The ileostomy was passed off the table as specimen. The closed, anastomosed bowel was reduced back into the abdomen as the surgical team changed gloves. Next, careful dissection was needed to remove the subcutaneous hernia sac. This was done using electrocautery. Both layers of fascia were then closed in a transverse orientation with interrupted, figure of eight 0 Vicryl suture. Subcutaneous tissue was then vigorously irrigated and suctioned dry. Tapan's fascia was closed using a 2-0 Vicryl suture. 4-0 Monocryl used to close the skin in a subcuticular fashion. The patient tolerated the procedure well without apparent complications. Appropriate counts were correct. YASMIN GREWAL MD Oct 05, 2016 15:58
[2016-10-05] MEDS ORDERED: HYDROCODONE/APAP (5/325) TAB PO PRN (16:00)
[2016-10-05] MEDS: ACETAMINOPHEN 1000MG/100ML IV 100 ML IVPB SCH ×2 (16:00→21:45)
[2016-10-05] MEDS ORDERED: HYDROmorphONE 1 MG/ML SYG IV PRN (16:00)
[2016-10-05] MEDS ORDERED: CEFTRIAXONE 1 GM/50 ML (PMX) 50 ML IVPB SCH (16:00)
[2016-10-05] MEDS: FENTAnyl 50 MCG/ML VIAL IV PRN ×2 (16:24→16:48)
[2016-10-05 16:41] LABS: BASOPHILS % 0.3 % (0.0-2.0); EOSINOPHILS # 0.1 10^3/ul (0.0-0.5); EOSINOPHILS % 0.7 % (0.0-7.0); HEMATOCRIT 35.9 % (37.0-47.0); HEMOGLOBIN 11.6 g/dl (12.0-16.0); LYMPHOCYTES # 1.6 10^3/ul (0.8-2.9); LYMPHOCYTES % 14.6 % (15.0-51.0); MEAN CORPUSCULAR HEMOGLOBIN 29.1 pg (29.0-33.0); MEAN CORPUSCULAR HGB CONC 32.3 g/dl (32.0-37.0); MEAN PLATELET VOLUME 9.5 fl (7.4-10.4); MONOCYTE # 0.4 10^3/ul (0.3-0.9); MONOCYTES % 3.5 % (0.0-11.0); NEUTROPHILS % 78.6 % (39.0-77.0); PLATELET COUNT 236 10^3/UL (140-415); RED BLOOD COUNT 3.99 10^6/ul (4.20-5.40); RED CELL DISTRIBUTION WIDTH 14.2 % (11.5-14.5); WHITE BLOOD COUNT 11.1 10^3/ul (4.8-10.8)
[2016-10-05] MEDS: KETOROLAC 30 MG INJ IV SCH ×3 (16:47→22:00)
[2016-10-05] MEDS ORDERED: hydrALAzine 20 MG INJ IV PRN (17:00)
[2016-10-05] MEDS ORDERED: LABETALOL HCL 20MG INJ IV PRN (17:00)
[2016-10-05] MEDS ORDERED: KETOROLAC 30 MG INJ IV PRN (17:00)
[2016-10-05] MEDS ORDERED: hydrALAzine 20 MG INJ ONE (17:01)
[2016-10-05 17:09] LABS: CREATININE 0.67 mg/dl (0.44-1.00); POTASSIUM 3.5 mmol/L (3.5-5.1)
[2016-10-05] MEDS: D5-NS + KCL 20 MEQ 1,000 ML IV SCH (18:18)
[2016-10-05] MEDS: metroNIDAZOLE 500 MG/NS (PMX) 100 ML IVPB SCH (21:43)
[2016-10-06] VITALS: BP 136/61; PULSE 78; RESP 18
[2016-10-06 04:00] VITALS: BP 126/60; PULSE 72; RESP 17
[2016-10-06] MEDS: D5-NS + KCL 20 MEQ 1,000 ML IV SCH ×2 (04:00→10:53)
[2016-10-06] MEDS: ACETAMINOPHEN 1000MG/100ML IV 100 ML IVPB SCH ×4 (04:05→21:15)
[2016-10-06 05:32] LABS: ABNORMAL IP MESSAGE 1; HEMATOCRIT 33.5 % (37.0-47.0); HEMOGLOBIN 10.6 g/dl (12.0-16.0); MEAN CORPUSCULAR HEMOGLOBIN 28.7 pg (29.0-33.0); MEAN CORPUSCULAR HGB CONC 31.6 g/dl (32.0-37.0); MEAN CORPUSCULAR VOLUME 90.8 fl (82.0-101.0); PLATELET COUNT 218 10^3/UL (140-415); RED BLOOD COUNT 3.69 10^6/ul (4.20-5.40); RED CELL DISTRIBUTION WIDTH 14.6 % (11.5-14.5); WHITE BLOOD COUNT 7.4 10^3/ul (4.8-10.8)
[2016-10-06] MEDS: metroNIDAZOLE 500 MG/NS (PMX) 100 ML IVPB SCH ×2 (05:45→14:55)
[2016-10-06 05:54] LABS: CALCIUM 8.9 mg/dl (8.4-10.2); CREATININE 0.61 mg/dl (0.44-1.00); POTASSIUM 4.7 mmol/L (3.5-5.1)
[2016-10-06] MEDS ORDERED: PANTOPRAZOLE 40 MG INJ IV SCH (06:00)
[2016-10-06] MEDS: ENOXAPARIN 40 MG/0.4 ML SYG SC SCH (07:02)
[2016-10-06 08:22] VITALS: BP 115/56; RESP 18
--- NOTE | 2016-10-06 09:00 | PN ---
Date/Time of Note Date/Time of Note DATE: 10/06/16 TIME: 08:57 Assessment/Plan VTE Prophylaxis VTE Prophylaxis Intervention: ambulation, LMWH, SCD's Lines/Catheters IV Catheter Type (from Nrsg): Peripheral IV Urinary Cath still in place: No Assessment/Plan Chief Complaint/Hosp Course 61YO Woman s/p reversal of DLI now POD1. Doing very well, sitting up, no NV/F/C /SOB/CP. No BM/F. Urinating well. To give clears, decrease IVF, encourage OOB , Tylenol/Toradol for pain. Problems: Subjective 24 Hr Interval Summary Constitutional: no complaints Respiratory: no complaints Cardiovascular: no complaints Gastrointestinal: no complaints, pain Exam/Review of Systems Vital Signs Vitals Vital Signs Date Time Temp Pulse Resp B/P Pulse Ox O2 Delivery O2 Flow Rate FiO2 10/06/16 08:22 97.8 79 18 115/56 95 10/05/16 18:28 Nasal Cannula 2.0 Intake and Output 10/05/16 10/05/16 10/06/16 15:00 23:00 07:00 Intake Total 900 ml 1610 ml Output Total 10 ml Balance 890 ml 1610 ml Exam Constitutional: alert, oriented Respiratory: clear to auscultation Cardiovascular: regular rate and rhythm Gastrointestinal: tender (mildly TTP, wound C/D/I) Results Result Diagram: 10/06/16 0425 10/06/16 0425 Results 24 hrs Laboratory Tests Test 10/05/16 16:19 10/06/16 04:25 White Blood Count 11.1 #H 7.4 # Red Blood Count 3.99 #L 3.69 L Hemoglobin 11.6 L 10.6 L Hematocrit 35.9 L 33.5 L Mean Corpuscular Volume 90.0 90.8 Mean Corpuscular Hemoglobin 29.1 28.7 L Mean Corpuscular Hemoglobin Concent 32.3 31.6 L Red Cell Distribution Width 14.2 14.6 H Platelet Count 236 218 Mean Platelet Volume 9.5 10.0 Neutrophils % 78.6 H Lymphocytes % 14.6 L Monocytes % 3.5 Eosinophils % 0.7 Basophils % 0.3 Nucleated Red Blood Cells % 0.0 0.0 Neutrophils # (Manual) 8.8 H 6.8 Lymphocytes # 1.6 Monocytes # 0.4 Eosinophils # 0.1 Basophils # 0.0 Nucleated Red Blood Cells # 0.0 Sodium Level 145 H 140 Potassium Level 3.5 4.7 Chloride Level 105 106 Carbon Dioxide Level 25 23 Anion Gap 19 H 16 Blood Urea Nitrogen 11 14 Creatinine 0.67 0.61 Glucose Level 135 145 Calcium Level 9.0 8.9 Medications Medications Current Medications Metronidazole (Flagyl 500 Mg (Pmx)) 100 ml @ 100 mls/hr Q8 IVPB Last administered on 10/06/16 05:45; Admin Dose 100 MLS/HR; Start 10/05/16 at 22:00 ; Stop 10/06/16 at 14:59 Hydromorphone HCl (Dilaudid) 0.5 mg Q2 PRN IV BREAKTHROUGH PAIN; Start at 16:00 Acetaminophen/ Hydrocodone Bitart ([place] (5/325)) 1 tab Q6H PRN PO PAIN LEVEL 6 -10; Start 10/05/16 at 16:00 Ketorolac Tromethamine (Toradol) 30 mg Q6H IV Last administered on 10/05/16 22 :00; Admin Dose 30 MG; Start 10/05/16 at 16:00; Stop 10/10/16 at 15:59 Ondansetron HCl (Zofran Inj) 4 mg Q6H PRN IV NAUSEA AND/OR VOMITING; Start at 16:00 Pantoprazole 40 mg 40 mg DAILY@06 IV Last administered on 10/06/16 05:45; Admin Dose 40 MG; Start 10/06/16 at 06:00 Potassium Chloride/Dextrose/ Sod Cl (D5-NS + KCl 20 Meq) 1,000 ml @ 100 mls/hr Q10H IV Last administered on 10/06/16 04:00; Admin Dose 100 MLS/HR; Start at 15:59 Enoxaparin Sodium 40 mg 40 mg DAILY@07 SC Last administered on 10/06/16 07:02 ; Admin Dose 40 MG; Start 10/06/16 at 07:00 Acetaminophen (Ofirmev 1000mg/ 100ml Iv) 100 ml @ 400 mls/hr Q6H IVPB Last administered on 10/06/16 04:05; Admin Dose 400 MLS/HR; Start 10/05/16 at 16:00 JACKIE DUMONT M.D. Oct 06, 2016 09:00
[2016-10-06] MEDS: KETOROLAC 30 MG INJ IV SCH ×5 (10:00→21:15)
[2016-10-06 10:40] LABS: BURR CELLS OCCASIONAL; LYMPHOCYTES # 0.4 10^3/ul (0.8-2.9); MONOCYTE # 0.2 10^3/ul (0.3-0.9); MONOCYTES % (M) 3 % (0-11); MYELOCYTES % (M) 1 % (0-0)
[2016-10-06 20:00] VITALS: BP 142/65; RESP 19
[2016-10-06] MEDS: FAMOTIDINE 20 MG INJ IV SCH (21:15)
[2016-10-06] MEDS ORDERED: KETOROLAC 30 MG INJ IV PRN (23:30)
[2016-10-06] MEDS ORDERED: ACETAMINOPHEN 1000MG/100ML IV 100 ML IVPB PRN (23:30)
[2016-10-07 02:00] VITALS: BP 148/71; RESP 19
[2016-10-07 05:30] LABS: BASOPHILS % 0.1 % (0.0-2.0); EOSINOPHILS % 0.3 % (0.0-7.0); HEMATOCRIT 30.6 % (37.0-47.0); HEMOGLOBIN 9.8 g/dl (12.0-16.0); LYMPHOCYTES # 0.8 10^3/ul (0.8-2.9); LYMPHOCYTES % 10.6 % (15.0-51.0); MEAN CORPUSCULAR HEMOGLOBIN 29.3 pg (29.0-33.0); MEAN CORPUSCULAR VOLUME 91.3 fl (82.0-101.0); MEAN PLATELET VOLUME 10.1 fl (7.4-10.4); MONOCYTE # 0.5 10^3/ul (0.3-0.9); MONOCYTES % 7.4 % (0.0-11.0); NEUTROPHILS % 81.3 % (39.0-77.0); PLATELET COUNT 197 10^3/UL (140-415); RED BLOOD COUNT 3.35 10^6/ul (4.20-5.40); RED CELL DISTRIBUTION WIDTH 14.7 % (11.5-14.5); WHITE BLOOD COUNT 7.2 10^3/ul (4.8-10.8)
[2016-10-07 06:09] LABS: CALCIUM 8.9 mg/dl (8.4-10.2); CREATININE 0.68 mg/dl (0.44-1.00); POTASSIUM 4.2 mmol/L (3.5-5.1)
[2016-10-07] MEDS: ENOXAPARIN 40 MG/0.4 ML SYG SC SCH (06:35)
[2016-10-07 07:46] VITALS: BP 137/65; RESP 18
[2016-10-07] MEDS ORDERED: traMADol 50 MG TAB PO PRN (09:00)
[2016-10-07] MEDS ORDERED: ACETAMINOPHEN 325 MG TAB PO PRN (09:00)
--- NOTE | 2016-10-07 09:02 | PDOCDIS ---
Discharge Instructions CONDITION Patient Condition: Good HOME CARE INSTRUCTIONS: Diet Instructions: Regular (No uncooked fruits or vegetables) ACTIVITY: Activity Restrictions: Avoid heavy lifting Avoid Heavy Housework Bathing Restrictions: Shower FOLLOW UP/APPOINTMENTS Follow-up Plan F/U one week with Dr. Lovell. Call if F/C/obstipation/bilious emesis/signs of sepsis or wound infection JACKIE DUMONT M.D. Oct 07, 2016 09:02
[2016-10-07] MEDS ORDERED: KETO30VI PO (09:05)
[2016-10-07] MEDS ORDERED: TRAM50TA2 PO (09:05)
--- NOTE | 2016-10-07 09:09 | PN ---
Date/Time of Note Date/Time of Note DATE: 10/07/16 TIME: 09:06 Assessment/Plan VTE Prophylaxis VTE Prophylaxis Intervention: ambulation, LMWH, SCD's Lines/Catheters IV Catheter Type (from Nrsg): Sal[place] Lock Urinary Cath still in place: No Assessment/Plan Chief Complaint/Hosp Course 61YO Woman s/p reversal of DLI now POD2. Doing very well, sitting up, no NV/F/C /SOB/CP. Passing gas and loose stool. Urinating well. Plan is to advance to soft diet, PO Tramadol and Tylenol for pain. If tolerating soft diet may go home with family. Told no heavy lifting, driving, no uncooked fruits or vegetables. To call if F/C/obstipaion/signs of sepsis or wound infection. Pt and family agree with plan. Problems: Subjective 24 Hr Interval Summary Constitutional: no complaints Respiratory: no complaints Cardiovascular: no complaints Gastrointestinal: no complaints Exam/Review of Systems Vital Signs Vitals Vital Signs Date Time Temp Pulse Resp B/P Pulse Ox O2 Delivery O2 Flow Rate FiO2 10/07/16 07:46 98.2 71 18 137/65 97 10/05/16 18:28 Nasal Cannula 2.0 Intake and Output 10/06/16 10/06/16 10/07/16 15:00 23:00 07:00 Intake Total 100 ml 1720 ml 960 ml Balance 100 ml 1720 ml 960 ml Exam Constitutional: alert, oriented Respiratory: clear to auscultation Cardiovascular: regular rate and rhythm Gastrointestinal: soft (wound C/D/I) Results Result Diagram: 10/07/16 0432 10/07/16 0432 Results 24 hrs Laboratory Tests Test 10/07/16 04:32 White Blood Count 7.2 Red Blood Count 3.35 L Hemoglobin 9.8 L Hematocrit 30.6 L Mean Corpuscular Volume 91.3 Mean Corpuscular Hemoglobin 29.3 Mean Corpuscular Hemoglobin Concent 32.0 Red Cell Distribution Width 14.7 H Platelet Count 197 Mean Platelet Volume 10.1 Neutrophils % 81.3 H Lymphocytes % 10.6 L Monocytes % 7.4 Eosinophils % 0.3 Basophils % 0.1 Nucleated Red Blood Cells % 0.0 Neutrophils # (Manual) 5.9 Lymphocytes # 0.8 Monocytes # 0.5 Eosinophils # 0.0 Basophils # 0.0 Nucleated Red Blood Cells # 0.0 Sodium Level 143 Potassium Level 4.2 Chloride Level 108 Carbon Dioxide Level 27 Anion Gap 12 Blood Urea Nitrogen 16 Creatinine 0.68 Glucose Level 95 # Calcium Level 8.9 Medications Medications Current Medications Ondansetron HCl (Zofran Inj) 4 mg Q6H PRN IV NAUSEA AND/OR VOMITING; Start at 16:00 Enoxaparin Sodium (Lovenox) 40 mg DAILY@07 SC Last administered on 10/07/16 06 :35; Admin Dose 40 MG; Start 10/06/16 at 07:00 Famotidine (Pepcid Iv) 20 mg BID IV Last administered on 10/06/16 21:15; Admin Dose 20 MG; Start 10/06/16 at 21:00 Ketorolac Tromethamine (Toradol) 30 mg Q6H PRN IV PRN; Start 10/06/16 at 23:30 ; Stop 10/10/16 at 15:59 Tramadol HCl (Ultram) 50 mg Q6H PRN PO PAIN; Start 10/07/16 at 09:00; Status UNV Acetaminophen (Tylenol Tab) 650 mg Q6H PRN PO PAIN AND OR ELEVATED TEMP; Start 10/07/16 at 09:00; Status UNV JACKIE DUMONT M.D. Oct 07, 2016 09:08
[2016-10-07] MEDS: FAMOTIDINE 20 MG INJ IV SCH (09:38)
[2016-10-07 14:00] VITALS: BP_SYST 134; BP_SYST 147; BP_DIAS 55; BP_DIAS 69; RESP 18
[2016-10-07 15:45] VITALS: BP 147/69; PULSE 71; RESP 18
[2016-10-07 17:43] LABS: BASOPHILS % 0.4 % (0.0-2.0); EOSINOPHILS # 0.1 10^3/ul (0.0-0.5); EOSINOPHILS % 1.5 % (0.0-7.0); HEMATOCRIT 32.6 % (37.0-47.0); HEMOGLOBIN 10.5 g/dl (12.0-16.0); LYMPHOCYTES # 0.7 10^3/ul (0.8-2.9); LYMPHOCYTES % 12.5 % (15.0-51.0); MEAN CORPUSCULAR HEMOGLOBIN 29.2 pg (29.0-33.0); MEAN CORPUSCULAR HGB CONC 32.2 g/dl (32.0-37.0); MEAN CORPUSCULAR VOLUME 90.8 fl (82.0-101.0); MEAN PLATELET VOLUME 9.9 fl (7.4-10.4); MONOCYTE # 0.4 10^3/ul (0.3-0.9); MONOCYTES % 7.7 % (0.0-11.0); NEUTROPHILS % 77.3 % (39.0-77.0); PLATELET COUNT 209 10^3/UL (140-415); RED BLOOD COUNT 3.59 10^6/ul (4.20-5.40); RED CELL DISTRIBUTION WIDTH 14.7 % (11.5-14.5); WHITE BLOOD COUNT 5.4 10^3/ul (4.8-10.8)
== END 2016-10-07 18:15 | disposition home or self-care (01) | DRG 330 ==
LOC: REC 12:24 → MS1 17:55
PROVIDERS: ADMIT Colon & Rectal Surgery; ATTEND Colon & Rectal Surgery
PROC: 0WQF0ZZ Repair Abdominal Wall, Open Approach (ICD-10-PCS; 2016-10-05)
PROC: 0DBB0ZZ Excision of Ileum, Open Approach (ICD-10-PCS; principal; 2016-10-05 14:00)
DX: Z43.2 Encounter for attention to ileostomy (principal); C20 Malignant neoplasm of rectum; K46.9 Unspecified abdominal hernia without obstruction or gangrene
CPT/HCPCS: 80048; 85025; 88304; 88305; C9113; J0131; J0360; J0690; J0696; J1100; J1170; J1650; J1885; J2250; J2405; J2765; J3010; J3480

== ENCOUNTER 2016-11-25 20:50 | Emergency (ER) | payer BC ==
[~2016-11-25] VITALS: Ht 152.4 cm; Wt 61.5 kg
[~2016-11-25 20:50] MED LIST changes: -DIATR MEGLU/DIATRIZOATE SODIUM 120 ML BTL ONE; +KETO30VI PO; +TRAM50TA2 PO
[2016-11-25 20:54] VITALS: Ht 152.4 cm; Wt 61.5 kg
[2016-11-25] MEDS ORDERED: ONDANSETRON 4 MG INJ IV STA (22:35)
[2016-11-25] MEDS ORDERED: morphine 4 MG/ML VIAL IV STA (22:35)
[2016-11-25] MEDS ORDERED: SOD CHLORIDE 0.9% 1,000 ML IV STA (22:35)
[2016-11-25 23:19] LABS: HEMATOCRIT 40.2 % (37.0-47.0); HEMOGLOBIN 13.4 g/dl (12.0-16.0); MEAN CORPUSCULAR HEMOGLOBIN 29.4 pg (29.0-33.0); MEAN CORPUSCULAR HGB CONC 33.3 g/dl (32.0-37.0); MEAN CORPUSCULAR VOLUME 88.2 fl (82.0-101.0); MEAN PLATELET VOLUME 9.6 fl (7.4-10.4); NUCLEATED RED BLOOD CELLS% 0.7 /100WBC (0.0-0.0); PLATELET COUNT 322 10^3/UL (140-415); RED BLOOD COUNT 4.56 10^6/ul (4.20-5.40); RED CELL DISTRIBUTION WIDTH 18.4 % (11.5-14.5); WHITE BLOOD COUNT 4.3 10^3/ul (4.8-10.8)
[2016-11-25 23:56] LABS: ALBUMIN 2.8 g/dl (3.3-4.9); ALBUMIN/GLOBULIN RATIO 0.9; BILIRUBIN,INDIRECT 0.5 mg/dl (0-1.1); BILIRUBIN,TOTAL 0.5 mg/dl (0.2-1.3); CREATININE 0.75 mg/dl (0.44-1.00); POTASSIUM 3.9 mmol/L (3.5-5.1); TOTAL PROTEIN 5.9 g/dl (6.1-8.1)
[2016-11-26] MEDS ORDERED: IOHEXOL 300MG/ML 150 ML BTL ONE (00:17)
[2016-11-26] MEDS ORDERED: SOD CHLORIDE 0.9% 100 ML ONE (00:17)
--- NOTE | 2016-11-26 00:36 | ERD ---
ER Documentation Chief Complaint Date/Time DATE: 11/26/16 TIME: 00:33 Chief Complaint 09/20 abd pain x 7 days decreased appetite x 4 days. Last chemo 11/20. HPI This 61-year-old female presents with generalized lower abdominal pain described as a hurting pain for 1 week. For the last 4 days she has had increasing pain and did not want to eat. She is on prophylactic chemotherapy currently. Pain does radiate to the back on occasion. Also having very small caliber, small bowel movements. She has a history of sigmoid colon cancer status post resection. ROS All systems reviewed and are negative except as per history of present illness. Medications Home Meds Active Scripts Polyethylene Glycol* (Miralax*) 17 Gm Powd.pack, 17 GM PO DAILY, #10 PACKET Prov:ANDREEACHELSEA 11/26/16 Ondansetron (Ondansetron Odt) 4 Mg Tab.rapdis, 4 MG PO Q6H Y for NAUSEA AND/OR VOMITING, #20 TAB Prov:CHELSEA DORAN DO 11/26/16 Naproxen* (Naproxen*) 500 Mg Tablet, 500 MG PO BID, #20 TAB Prov:ANDREEACHELSEA DO 11/26/16 Hydrocodone/Acetaminophen ([place] 10-325 Tablet) 1 Each Tablet, 1 EACH PO Q6, # 20 TAB Prov:ANDREEACHELSEA DO 11/26/16 Ketorolac Tromethamine (Ketorolac Tromethamine) 30 Mg/1 Ml Vial, 10 MG PO Q8 Y for PRN for 2 Days, #6 TAB 0 Refills Prov:JACKIE DUMONT M.D. 10/07/16 Tramadol HCl (Tramadol HCl) 50 Mg Tablet, 50 MG PO Q6H Y for PAIN, #20 TAB 0 Refills Prov:JACKIE DUMONT M.D. 10/07/16 Allergies Allergies: Coded Allergies: No Known Allergy (Unverified , 10/05/16) PMhx/Soc History of Surgery: Yes (APPENDECTOMY /CHOLECYSTECTOMY MORE THAN 20 YEARS AGO, ILEOSTOMY/TUMOR 2017) Anesthesia Reaction: Yes (20 YEARS AGO-HYPOTENSION) Hx Neurological Disorder: No Hx Respiratory Disorders: No Hx Cardiac Disorders: Yes (SHOWING AFIB ON MONITOR THIS VISIT) Hx Psychiatric Problems: No Hx Miscellaneous Medical Probl: No Hx Alcohol Use: No Hx Substance Use: No Hx Tobacco Use: No Smoking Status: Never smoker Physical Exam Vitals Vital Signs Date Time Temp Pulse Resp B/P Pulse Ox O2 Delivery O2 Flow Rate FiO2 11/26/16 01:30 97.9 99 17 118/62 98 Room Air 11/26/16 00:32 98.2 101 20 125/85 98 Room Air 11/26/16 00:00 98.2 103 24 140/76 98 Room Air 11/25/16 22:40 97.9 103 20 143/72 99 Room Air 11/25/16 20:54 98.6 104 18 131/62 96 Physical Exam Const: [] Moderate distress Head: Atraumatic Eyes: Normal Conjunctiva ENT: Normal External Ears, Nose and Mouth. Neck: Full range of motion..~ No meningismus. Resp: Clear to auscultation bilaterally Cardio: Regular rate and rhythm, no murmurs Abd: Soft, mild generalized and mild to moderate lower abdominal tenderness without guarding or rebound, non distended. Normal bowel sounds Skin: No petechiae or rashes Ext: No cyanosis, or edema Neur: Awake and alert oriented 3, no focal deficits Psych: Normal Mood and Affect Result Diagram: 11/25/16225611/25/162256 Results 24 hrs Laboratory Tests Test 11/25/16 22:57 11/26/16 02:11 White Blood Count 4.310^3/ul Red Blood Count 4.5610^6/ul Hemoglobin 13.4g/dl Hematocrit 40.2% Mean Corpuscular Volume 88.2fl Mean Corpuscular Hemoglobin 29.4pg Mean Corpuscular Hemoglobin Concent 33.3g/dl Red Cell Distribution Width 18.4% Platelet Count 34683^3/UL Mean Platelet Volume 9.6fl Neutrophils % % Segmented Neutrophils % (Manual) 54% Band Neutrophils % (Manual) 8% Lymphocytes % % Lymphocytes % (Manual) 23% Monocytes % % Monocytes % (Manual) 15% Eosinophils % % Basophils % % Nucleated Red Blood Cells % 0.7/100WBC Neutrophils # 10^3/ul Neutrophils # (Manual) 2.310^3/ul Band Neutrophils # 0.310^3/ul Absolute Lymphocytes (Manual) 0.910^3/ul Lymphocytes # 1.010^3/ul Monocytes # 0.610^3/ul Absolute Monocytes (Manual) 0.610^3/ul Eosinophils # 10^3/ul Basophils # 10^3/ul Nucleated Red Blood Cells # 10^3/ul Sodium Level 139mmol/L Potassium Level 3.9mmol/L Chloride Level 104mmol/L Carbon Dioxide Level 25mmol/L Anion Gap 14 Blood Urea Nitrogen 19mg/dl Creatinine 0.75mg/dl Glucose Level 117mg/dl Lactic Acid Level 1.6mmol/L Calcium Level 9.0mg/dl Total Bilirubin 0.5mg/dl Direct Bilirubin 0.00mg/dl Indirect Bilirubin 0.5mg/dl Aspartate Amino Transf (AST/SGOT) 30IU/L Alanine Aminotransferase (ALT/SGPT) 29IU/L Alkaline Phosphatase 72IU/L Total Protein 5.9g/dl Albumin 2.8g/dl Globulin 3.10g/dl Albumin/Globulin Ratio 0.90 Lipase 152U/L Bedside Urine pH (LAB) 5.5 Bedside Urine Protein (LAB) Negative Bedside Urine Glucose (UA) Negative Bedside Urine Ketones (LAB) Negative Bedside Urine Blood Negative Bedside Urine Nitrite (LAB) Negative Bedside Urine Leukocyte Esterase (L Negative Current Medications Medications (Trade) Dose Ordered Sig/Malathi Route PRN Reason Start Time Stop Time Status Last Admin Dose Admin Sodium Chloride (NS) 1,000 ml @ 1,000 mls/hr Q1H STAT IV 11/25/16 22:35 11/25/16 23:34 DC 11/25/16 23:16 Morphine Sulfate (morphine) 4 mg ONCE STAT IV 11/25/16 22:35 11/25/16 22:36 DC 11/25/16 23:15 Ondansetron HCl 4 mg 4 mg ONCE STAT IV 11/25/16 22:35 11/25/16 22:36 DC 11/25/16 23:15 Sodium Chloride (NS) 100 ml @ ud STK-MED ONCE .ROUTE 11/26/16 00:17 11/26/16 00:18 DC 11/26/16 00:51 Iohexol (Omnipaque 300mg/ ml) 150 ml STK-MED ONCE .ROUTE 11/26/16 00:17 11/26/16 00:18 DC 11/26/16 00:51 Procedures/MDM Abdominal pain with evidence of nonspecific enteritis. No diarrhea. Also a new liver lesion discovered. Patient does not have pain in the right upper quadrant however. Was given Toradol and Zofran which made her feel much better. Is also given a liter of normal saline. There are no signs of any serious bacterial infection, no signs of AAA or other acute abdominal emergency. Tender to CAT scan for. We will have her follow-up with her primary care doctor and instructions to obtain a biopsy of the liver lesions are talked to her oncologist about it. He does have small caliber stools that may be partially constipated. I am also going to give her MiraLAX. For pain I am giving her [place] as well as naproxen and Zofran as needed nausea. Strict return precautions to the ER for any fevers or worsening symptoms. CT abdomen pelvis interpretation: Colonic enteritis, nonspecific. No obstruction, no free air perforation, mild fat stranding of the sacrum, fractures. Departure Diagnosis: Primary Impression: Acute abdominal pain Additional Impressions: Liver lesion Enteritis Condition: Stable CHELSEA DORAN DO Nov 26, 2016 00:36
[2016-11-26 00:58] LABS: MONOCYTE # 0.6 10^3/ul (0.3-0.9); MONOCYTES % (M) 15 % (0-11)
--- NOTE | 2016-11-26 01:01 | RADRPT ---
PROCEDURE: CT Abdomen and pelvis with contrast. CLINICAL INDICATION: Abdominal pain. TECHNIQUE: CT scan of the abdomen and pelvis with contrast was performed on a multi-detector high -resolution CT scanner. The patient was scanned following the uncomplicated administration of 100 c c of Omnipaque 300 intravenous contrast. Coronal and sagittal reformatted images were obtained from the axial source images. Images were reviewed on a high-resolution PACS workstation. One or more of the following dose reduction techniques were used: - Automated exposure control. - Adjustment of the mA and/or kV according to patient size. - Use of iterative reconstruction technique. Exam CTD/vol = 8.49 mGy. Total exam DLP = 478.87 mGy-cm. COMPARISON: 03/18/2016. FINDINGS: Evaluation of the lung bases demonstrates mild left basilar atelectasis. There is moderate elevation of the left hemidiaphragm. There is a nodule within the left breast measuring 1.6 x 1.1 cm.. Abdomen: The liver is normal in size. There are complex, hypodense masses within the right lobe of the liver with the largest measuring 8.0 x 7.4 cm. There is no dilatation of the biliary tree. The gallbladder is not visualized. The spleen, pancreas and bilateral adrenal glands are within normal limits. Bilateral kidneys are normal in size with symmetric enhancement. There is no focal mass, h ydronephrosis or hydroureter. There is no retroperitoneal adenopathy. The abdominal aorta is of no rmal caliber. There are mild to moderately thickened loops of small bowel within the lower abdomen and pelvis with mild adjacent stranding. The patient is status post sigmoidectomy and resection of rectosigmoid mas s. There is no bowel obstruction or free air. The appendix is not visualized. There is no diverti culosis or diverticulitis. There is no ascites. There is mild subcutaneous scarring and small fluid collection within the right ventral abdominal wall measuring 2.9 x 1.0 cm. Pelvis: The bladder is unremarkable. The uterus and adnexa are within normal limits. There is mil d presacral stranding. There is no significant pelvic adenopathy or free fluid. Evaluation of the osseous structures demonstrates no suspicious lytic or blastic lesion. There is a mild compression fracture of the superior endplate of L5 with up to 20% loss in vertebral body heigh t. There is no bony retropulsion. IMPRESSION: Status post sigmoidectomy and resection of rectosigmoid mass. There is mild presacral stranding. Mild to moderate thickening of the small bowel loops within the lower abdomen and pelvis represents a nonspecific enteritis. Clinically correlate with radiation enteritis. Masses within the right lobe of the liver measuring up to 8.0 cm concerning for metastatic disease, new compared with the prior study. Mild compression fracture of the superior endplate of L5, new compared with the prior study. There i s no bony retropulsion. Moderate elevation of the left hemidiaphragm and mild left basilar atelectasis. Left breast nodule measuring 1.6 x 1.1 cm, unchanged. Mild scarring and small fluid collection within the right anterior abdominal wall measuring 2.9 x 1. 0 cm could represent a seroma. .Eduardo Wilson MD, Date Time Electronically viewed and signed by .Eduardo Wilson MD, on 11/26/2016 01:01 .T/
[2016-11-26 02:03] LABS: URINE BLOOD (Dip) POC Negative (NEGATIVE)
[2016-11-26] MEDS ORDERED: NAPR-688 PO (02:27)
[2016-11-26] MEDS ORDERED: POLY17PO6 PO (02:27)
[2016-11-26] MEDS ORDERED: ONDA4TAB14 PO (02:27)
[2016-11-26] MEDS ORDERED: HYDR-902 PO (02:27)
[2016-11-26 02:50] VITALS: BP 107/70; PULSE 97; RESP 15; TEMP 97.9
== END 2016-11-26 02:51 | disposition home or self-care (01) ==
LOC: E/R 20:50
DX: K52.9 Noninfective gastroenteritis and colitis, unspecified (principal); K76.9 Liver disease, unspecified; C18.7 Malignant neoplasm of sigmoid colon
CPT/HCPCS: 36415; 74177; 80053; 81003; 83605; 83690; 85025; 96374; 96375; J2270; J2405; J7030; Q9967; Z7502; Z7610

== ENCOUNTER 2016-12-18 07:33 | Day surgery (SDC) | payer BC ==
[2016-12-18] VITALS (8 sets, daily range): BP systolic 108–139; BP diastolic 52–86; PULSE 90–99; RESP 16–22; Ht 157.5 cm; Wt 61.2 kg
[~2016-12-18] VITALS: Ht 157.5 cm; Wt 61.2 kg
[~2016-12-18 07:33] MED LIST changes: +HYDR-902 PO; +NAPR-688 PO; +ONDA4TAB14 PO; +POLY17PO6 PO
[2016-12-18] MEDS ORDERED: CAPE500T11 PO ×2 (08:25)
[2016-12-18] MEDS ORDERED: POLYMYXIN/BACITRACIN 1L IRRIG IRR ONE (08:30)
[2016-12-18] MEDS ORDERED: CEFAZOLIN 1 GM/50 ML (PMX) 50 ML IVPB ONE ×2 (08:30→10:01)
[2016-12-18] MEDS ORDERED: SOD CHLORIDE 0.9% 1,000 ML IV SCH (08:30)
[2016-12-18] MEDS ORDERED: HEPARIN 1000 UNITS/ML 10 ML INJ ONE (09:30)
[2016-12-18] MEDS ORDERED: LIDOCAINE 1%/EPI 30 ML INJ ONE (09:31)
[2016-12-18] MEDS ORDERED: FENTAnyl 50 MCG/ML VIAL ONE (10:00)
[2016-12-18] MEDS ORDERED: DIPHENHYDRAMINE 50 MG INJ ONE (10:00)
--- NOTE | 2016-12-18 12:03 | RADRPT ---
PROCEDURE: FLUOROSCOPIC AND ULTRASONOGRAPHIC-GUIDED PLACEMENT OF RIGHT CHEST PORT. CLINICAL INDICATION: History of colorectal cancer. Venous access for chemotherapy. TECHNIQUE: INTRAPROCEDURE MEDICATIONS: PB antibiotic solution 40 cc applied topically. 1 gram Ancef intravenous ly, intra-op. IV Versed and Fentanyl per protocol. Informed consent was obtained. The procedure, risks, benefits, complications and alternatives were explained to the patient. Risks including bleeding, infection, and pneumothorax were explained. The patient understood and was willing to proceed. A procedural pause was performed. The patient's name , date of , and procedure to be performed were verified. The central line was inserted with al l elements of maximal sterile barrier technique. All of the following were used: head covering, faci al mask, sterile gown, sterile gloves, a large sterile sheet, hand hygiene, and 2% chlorhexidine fo r cutaneous antisepsis. The right neck and anterior/superior chest wall were prepped and draped in usual sterile fashion. Limited sonography of the right neck was then performed. Noted is a patent right internal jugular ve in. Following the local injection of 1% lidocaine, the right internal jugular vein was punctured under s onographic guidance with a 20-gauge needle through which a 0.018 inch floppy tip guidewire was advan huey into the superior vena cava with fluoroscopic guidance. The tract was dilated to 5 [place] and the wire was then replaced with a 0.035 in Amplatz guidewire. Serial dilatation was then performed and a 7 [place] peel away sheath was introduced. A site just inferior to the clavicle in the superior anterior right chest wall was localized. One pe rcent lidocaine was used as local anesthesia. A transverse 2.5 cm incision was made utilizing a 15 b lade scalpel. Utilizing blunt dissection a subcutaneous pocket was created inferior to the incision. The cavity was flushed with approximately 40 cc of PB antibiotic solution. The catheter was tunneled underneath the skin from the newly created pocket to the puncture site in the neck. The central line catheter was pulled through the tract. The catheter was then advanced thr ough the sheath until the tip was positioned in the right atrium. The peel-away sheath was removed. The catheter was flushed and clamped. The 6.6 Luxembourger catheter was then connected to the [employer] power port. The port was then placed into the pocket. Prior to closing the instrument and sponge count was verified and was correct. The subcutaneous tissue was closed with 3-0 Vicryl interrupted suture. The skin at the site of the pock et and in the neck was closed with 4-0 Vicryl suture in a running subcuticular technique. The port w as flushed with 1500 units of heparin in 1.5 cc utilizing a Hinojosa needle. The needle was removed. A dressing was applied. The patient tolerated procedure well. COMPARISON: None. FINDINGS: Ultrasound images were recorded and stored in the patient's medical record. Final radiographic images demonstrate the tip of the catheter in the upper right atrium. A total of 0.1 minutes of fluoroscopy time was used. 3 images of the chest were obtained with the [employer] The ultrasound images demonstrate the needle entering the internal jugular vein. IMPRESSION: 1. Successful ultrasonographic and fluoroscopic guided placement of right chest power port. RPTAT: QQ .Abiel Andrew MD, MD Date Time Electronically viewed and signed by .Abiel Andrew MD, on 12/18/2016 12:03 .R/
--- NOTE | 2016-12-18 12:18 | RADRPT ---
PROCEDURE: Ultrasound guidance for placement of needle in right internal jugular vein. CLINICAL INDICATION: Venous access. TECHNIQUE: Prior to the procedure, informed consent was obtained. Risks including bleeding, infection, and pneu mothorax were explained to the patient. The patient understood and was willing to proceed. A procedu ral pause was performed. The patient's name, date of , and procedure to be performed were verif ied. The central line was inserted with all elements of maximal sterile barrier technique. All of th e following were used: head covering, facial mask, sterile gown, sterile gloves, a large sterile she et, hand hygiene, and 2% chlorhexidine for cutaneous antisepsis. The right neck and anterior/super ior chest wall was prepped and draped in usual sterile fashion. Limited sonography of the right neck was then performed. Noted is a patent right internal jugular ve in. Ultrasound images were recorded and stored in the patient's medical record. Following the local injection of Xylocaine, the right internal jugular vein was punctured under sono graphic guidance with a 20-gauge needle through which a 0.018 inch floppy tip guidewire was advanced into the superior vena cava. The patient tolerated the procedure well. The remainder of the proce dure was performed and dictated under separate cover. COMPARISON: None. FINDINGS: The ultrasound images demonstrate a patent right internal jugular vein. The subsequent images demon strate the needle entering the right internal jugular vein. IMPRESSION: 1. Ultrasound guidance for a needle placement in right internal jugular vein. RPTAT: QQ .Abiel Andrew MD, Date Time Electronically viewed and signed by .Abiel Andrew MD, on 12/18/2016 12:17 .R/
[2016-12-18] MEDS ORDERED: HYDROCODONE/APAP (5/325) TAB PO PRN (12:30)
== END 2016-12-18 14:52 | disposition home or self-care (01) ==
LOC: SDS 07:33
PROVIDERS: ATTEND Internal Medicine Hematology & Oncology
DX: C19 Malignant neoplasm of rectosigmoid junction (principal); E03.9 Hypothyroidism, unspecified
CPT/HCPCS: 36561; 76942; 82962; C1788; J0690; J1200; J1644; J3010; Z7610

== ENCOUNTER 2017-01-14 03:40 | Observation (INO) | payer BC ==
[~2017-01-14] VITALS: Ht 160 cm; Wt 63.0 kg
[~2017-01-14 03:40] MED LIST changes: +CAPE500T11 PO; -HYDR-902 PO; -KETO30VI PO; -NAPR-688 PO; -ONDA4TAB14 PO; -POLY17PO6 PO; -TRAM50TA2 PO
[2017-01-14] MEDS ORDERED: SOD CHLORIDE 0.9% 1,000 ML IV STA (03:49)
[2017-01-14] MEDS ORDERED: morphine 4 MG/ML VIAL IV STA (03:49)
[2017-01-14] MEDS ORDERED: ONDANSETRON 4 MG INJ IV STA (03:49)
[2017-01-14 04:31] LABS: BASOPHILS % 0.3 % (0.0-2.0); EOSINOPHILS # 0.1 10^3/ul (0.0-0.5); HEMATOCRIT 37.4 % (37.0-47.0); HEMOGLOBIN 12.1 g/dl (12.0-16.0); LYMPHOCYTES # 0.8 10^3/ul (0.8-2.9); LYMPHOCYTES % 10.1 % (15.0-51.0); MEAN CORPUSCULAR HEMOGLOBIN 29.6 pg (29.0-33.0); MEAN CORPUSCULAR HGB CONC 32.4 g/dl (32.0-37.0); MEAN CORPUSCULAR VOLUME 91.4 fl (82.0-101.0); MEAN PLATELET VOLUME 9.9 fl (7.4-10.4); MONOCYTE # 0.2 10^3/ul (0.3-0.9); MONOCYTES % 2.8 % (0.0-11.0); NEUTROPHIL # 6.7 10^3/ul (1.6-7.5); NEUTROPHILS % 85.3 % (39.0-77.0); PLATELET COUNT 263 10^3/UL (140-415); RED BLOOD COUNT 4.09 10^6/ul (4.20-5.40); RED CELL DISTRIBUTION WIDTH 19.8 % (11.5-14.5); WHITE BLOOD COUNT 7.8 10^3/ul (4.8-10.8)
[2017-01-14] MEDS ORDERED: HYDROmorphONE 1 MG/ML SYG IV STA ×2 (04:45→09:04)
--- NOTE | 2017-01-14 04:45 | RADRPT ---
PROCEDURE: CT abdomen and pelvis without intravenous contrast. CLINICAL INDICATION: Pain. TECHNIQUE: CT of the abdomen/pelvis was performed utilizing axial images with reconstructions in s agittal and coronal planes. The administered radiation dose is CTDI 9.5 mGy, DLP 575 mGy-cm. One or more of the following dose reduction techniques were used: automated exposure control, adjustment of the mA and/or kV according to patient size and/or use of iterative reconstruction technique. DICOM images are available. COMPARISON: 11/26/2016 FINDINGS: Visualized Chest: There are fractures within the left posterolateral 7th rib with some surrounding s oft tissue and pleural thickening. There are likely some destructive changes within the rib. There i s a 16 mm nodule within the visualized left breast. There is mild cardiomegaly. Coronary artery calc ifications are noted. Abdomen: The spleen, pancreas, gallbladder,and adrenal glands are unremarkable. A large, mildly hypoattenua ting mass is noted within the right hepatic lobe. This measures up to 10.8 x 11.4 cm in greatest axi al dimensions. This has increased in size compared to the prior exam. The kidneys are without hydronephrosis. No definite urinary calculi are seen. Some sutures are noted along the distal ileum. There is no evidence of bowel obstruction. The appen van is not seen. There is no evidence of acute appendicitis. No intra-abdominal free air is seen. There is no evidence of intra-abdominal adenopathy or free fluid. Again seen is a 2.9 x 1 cm lesion within the deep subcutaneous fat within the right lower quadrant. This is unchanged compared to the prior examination.Vascular calcifications are noted within the aorta and its branches. Pelvis: There is no evidence of pelvic adenopathy. The uterus and ovaries are without enlargement. The uri nary bladder is unremarkable. There is no pelvic free fluid. Osseous structures: In addition to the above described left seventh rib fractures. There is moderate compression deformity of the L5 vertebral body with a lucent lesion in the central aspect of the ve rtebral body. This has progressed compared to the prior exam. IMPRESSION: There is seen fractures of the left posterolateral 7th rib with some apparent destructive osseous ch anges, prominent surrounding soft tissue and adjacent pleural thickening. There is also new moderate compression deformity of the L5 vertebral body with an underlying lucent lesion. Findings are sugge stive of neoplasm and pathologic fractures. 16 mm nodule within the left breast. Correlation with mammography is recommended. Large lesion within the right hepatic lobe which has increased in size compared to the prior examina tion and worrisome for neoplasm. Likely small subcutaneous seroma within the right lower quadrant abdominal wall. This is unchanged c ompared to the prior. RPTAT: HIKT .Alvarez Lopez MD, MD Date Time Electronically viewed and signed by .Alvarez Lopez MD, MD on 01/14/2017 04:44 .T/
[2017-01-14 04:50] LABS: ALBUMIN 3.8 g/dl (3.3-4.9); ALBUMIN/GLOBULIN RATIO 0.92; BILIRUBIN,INDIRECT 0.3 mg/dl (0-1.1); BILIRUBIN,TOTAL 0.3 mg/dl (0.2-1.3); CALCIUM 9.5 mg/dl (8.4-10.2); CREATININE 0.77 mg/dl (0.44-1.00); TOTAL PROTEIN 7.9 g/dl (6.1-8.1)
--- NOTE | 2017-01-14 05:28 | ERD ---
ER Documentation Chief Complaint Chief Complaint From Assisted living,c/o right abd pain HPI Is a 61-year-old female from assisted living complains of right-sided abdominal pain and back pain started 2 days ago. Denies any trauma. Patient with history of metastatic cancer. Patient currently on chemo. Pain is mild to moderate in intensity. No other current issues. ROS All systems reviewed and are negative except as per history of present illness. Medications Home Meds Reported Medications Capecitabine* (Xeloda*) 500 Mg Tablet, 1000 MG PO QPM, TBS 12/18/16 Capecitabine* (Xeloda*) 500 Mg Tablet, 1500 MG PO QAM, TAB 12/18/16 Allergies Allergies: Coded Allergies: No Known Allergy (Unverified , 12/18/16) PMhx/Soc History of Surgery: Yes (APPENDECTOMY, CHOLECYSTECTOMY,RECTAL RESECTION, ILEOSTOMY, ILEOSTOMY REVERSA) Anesthesia Reaction: Yes (LOW BP) Hx Neurological Disorder: No Hx Respiratory Disorders: No Hx Cardiac Disorders: No Hx Psychiatric Problems: No Hx Miscellaneous Medical Probl: No Hx Alcohol Use: No Hx Substance Use: No Hx Tobacco Use: No Smoking Status: Never smoker Physical Exam Vitals Vital Signs Date Time Temp Pulse Resp B/P Pulse Ox O2 Delivery O2 Flow Rate FiO2 01/14/17 03:42 98.5 91 18 136/68 97 01/14/17 03:42 98.5 93 18 135/84 97 Room Air Physical Exam Const: [] Head: Atraumatic Eyes: Normal Conjunctiva ENT: Normal External Ears, Nose and Mouth. Neck: Full range of motion..~ No meningismus. Resp: Clear to auscultation bilaterally Cardio: Regular rate and rhythm, no murmurs Abd: Soft, non tender, non distended. Normal bowel sounds Skin: No petechiae or rashes Back: No midline or flank tenderness Ext: No cyanosis, or edema Neur: Awake and alert Psych: Normal Mood and Affect Result Diagram: 01/14/1739901/14/17399 Results 24 hrs Laboratory Tests Test 01/14/17 04:00 White Blood Count 7.810^3/ul Red Blood Count 4.0910^6/ul Hemoglobin 12.1g/dl Hematocrit 37.4% Mean Corpuscular Volume 91.4fl Mean Corpuscular Hemoglobin 29.6pg Mean Corpuscular Hemoglobin Concent 32.4g/dl Red Cell Distribution Width 19.8% Platelet Count 84284^3/UL Mean Platelet Volume 9.9fl Neutrophils % 85.3% Lymphocytes % 10.1% Monocytes % 2.8% Eosinophils % 1.0% Basophils % 0.3% Nucleated Red Blood Cells % 0.0/100WBC Neutrophils # 6.710^3/ul Lymphocytes # 0.810^3/ul Monocytes # 0.210^3/ul Eosinophils # 0.110^3/ul Basophils # 0.010^3/ul Nucleated Red Blood Cells # 0.010^3/ul Sodium Level 143mmol/L Potassium Level 4.0mmol/L Chloride Level 105mmol/L Carbon Dioxide Level 28mmol/L Anion Gap 14 Blood Urea Nitrogen 15mg/dl Creatinine 0.77mg/dl Glucose Level 133mg/dl Calcium Level 9.5mg/dl Total Bilirubin 0.3mg/dl Direct Bilirubin 0.00mg/dl Indirect Bilirubin 0.3mg/dl Aspartate Amino Transf (AST/SGOT) 91IU/L Alanine Aminotransferase (ALT/SGPT) 27IU/L Alkaline Phosphatase 142IU/L Total Protein 7.9g/dl Albumin 3.8g/dl Globulin 4.10g/dl Albumin/Globulin Ratio 0.92 Lipase 88U/L Current Medications Medications (Trade) Dose Ordered Sig/Malathi Route PRN Reason Start Time Stop Time Status Last Admin Dose Admin Sodium Chloride (NS) 1,000 ml @ 1,000 mls/hr Q1H STAT IV 01/14/17 03:49 01/14/17 04:48 DC 01/14/17 04:13 Morphine Sulfate (morphine) 4 mg ONCE STAT IV 01/14/17 03:49 01/14/17 04:07 DC 01/14/17 04:25 Ondansetron HCl (Zofran Inj) 4 mg ONCE STAT IV 01/14/17 03:49 01/14/17 04:07 DC 01/14/17 04:15 Hydromorphone HCl (Dilaudid) 1 mg ONCE STAT IV 01/14/17 04:45 01/14/17 04:55 DC 01/14/17 04:58 Procedures/MDM This is a 59-year-old female with metastatic cancer. Patient at this point will need to be admitted for pain control. Patient admitted to the panel physician. Departure Diagnosis: Primary Impression: Abdominal pain Abdominal location: unspecified location Qualified Code: R10.9 - Abdominal pain, unspecified abdominal location Condition: Stable JACKIE BENAVIDES Jan 14, 2017 05:28
[2017-01-14] MEDS ORDERED: FENTAnyl 50 MCG/ML VIAL IV ONE (06:00)
[2017-01-14] MEDS ORDERED: HYDROCODONE/APAP (5/325) TAB PO PRN (06:30)
[2017-01-14] MEDS ORDERED: ONDANSETRON 4 MG INJ IV PRN (06:30)
[2017-01-14] MEDS ORDERED: DOCUSATE SODIUM 100 MG CAP PO PRN (06:30)
[2017-01-14] MEDS ORDERED: ACETAMINOPHEN 325 MG TAB PO PRN (06:30)
[2017-01-14 07:59] VITALS: PULSE 92; TEMP 98.2
[2017-01-14 08:26] VITALS: BP 131/81; RESP 20
[2017-01-14] MEDS ORDERED: CAPECITABINE 500 MG TAB PO SCH ×2 (09:00→21:00)
[2017-01-14] MEDS: HYDROCODONE/APAP (5/325) TAB PO PRN (09:04)
[2017-01-14] MEDS ORDERED: LORAZEPAM 2 MG INJ IV ONE (09:30)
[2017-01-14] MEDS ORDERED: LORAZEPAM 2 MG INJ IV PRN (09:30)
--- NOTE | 2017-01-14 09:41 | HP ---
Date/Time of Note Date/Time of Note DATE: 01/14/17 TIME: 09:27 Assessment/Plan VTE Prophylaxis VTE Prophylaxis Intervention: LMWH Assessment/Plan Assessment/Plan 61-year-old female who presents with severe right upper quadrant abdominal pain with known metastatic colon cancer found to have new thoracic fracture as well as lumbar compression fracture likely pathologic in origin from neoplasm as well as enlargement of metastatic liver nodule admitted for pain control and comfort. PLAN: Aggressive pain control with dilaudid initially with anxiolytic and lyrica till more comfortable / Pain mgt consult if no improvement Oncology consultation with patient's oncologist Dr Salas, to find out prognosis and current response to therapy Good bowel regimen Supportive care Plan of care has been discussed with patient and daughter in detail. (Daughter is a nurse and very well informed), questions answered and patient has verbalized understanding. HPI/ROS Admit Date/Time Admit Date/Time Jan 14, 2017 at 05:27 Hx of Present Illness This is a 61-year-old female with a history of metastatic colon cancer diagnosed earlier this year and was started on chemotherapy around April 2016. She had colon resection in June and ileostomy reversal a few months after that. Since then she has been resumed on chemo/treatment since October per family and has also had a Port-A-Cath placed. She presented to the emergency room today with severe right upper quadrant pain radiating from her right upper quadrant medially towards her belly button. The pain also radiates backwards towards her spine. 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 His pain however seems different from that. She has had no fever , as she has had irregular bowel movements. She denies dysuria, cough, headache. Her main issue is this severe right upper quadrant pain. A CT scan done upon presentation showed fractures in the left posterolateral 7 3 with destructive osseous changes and surrounding soft tissue and adjacent pleural thickening. He also showed a new compression deformity in the L5 vertebral body with an underlying lesion and findings are concerning for pathologic fractures from neoplasm. Patient was also noted to have a nodule in her left breast and a large lesion in her right hepatic lobe that has increased in size compared to the prior exam. All in all findings are concerning for progressing cancer despite treatment, so for now will be admitted for pain control and increasing patient's level of comfort while we await oncology review and recommendations in terms of definitive therapy. So far she had no dietary issues prior to admission. Patient received fentanyl, morphine, Dilaudid in the ER and felt relief for only about an hour until pain returned. ROS 12 point review if systems was done and pertinent findings are as noted. PMH/Family/Social Past Medical History * Metastatic colon cancer Past Surgical History * Cholecystectomy * Appendectomy appendectomy * Colon resection with subsequent ileostomy reversal * Port-A-Cath placement Family History Significant Family History: no pertinent family hx (Mother in childbirth when patient was very young, father in home country of tuberculosis.) Social History Alcohol Use: none Smoking Status: Never smoker Drug Use: none Exam/Review of Systems Vital Signs Vitals VS - Last 72 Hours, by Label Date Time Temp Pulse Resp B/P Pulse Ox O2 Delivery O2 Flow Rate FiO2 01/14/17 07:59 98.2 92 18 156/88 98 Room Air 01/14/17 03:42 98.5 91 18 136/68 97 01/14/17 03:42 98.5 93 18 135/84 97 Room Air Vital Signs Date Time Temp Pulse Resp B/P Pulse Ox O2 Delivery O2 Flow Rate FiO2 01/14/17 07:59 98.2 92 18 156/88 98 Room Air Exam Constitutional: alert, distress (Secondary to pain) Psych: anxiety Head: atraumatic, normocephalic Eyes: PERRL, No icteric ENMT: mucosa pink and moist Neck: supple Respiratory: clear to auscultation, diminished breath sounds Cardiovascular: No murmurs/extra sounds, No regular rate and rhythm (Mildly tachycardic likely secondary to pain,) Gastrointestinal: bowel sounds, soft, tender (Diffusely tender in right upper quadrant, there is no rebound but mild guarding. The rest of the abdomen seems fine, but patient also is quite anxious and very antsy.) Musculoskeletal: nl extremities to inspection Neurological: nl mental status Skin: No rash or lesions Labs Result Diagram: 01/14/1739901/14/17399 Medications Medications Current Medications Capecitabine (Xeloda) 1,000 mg QPM PO ; Start 01/14/17 at 21:00 Capecitabine (Xeloda) 1,500 mg QAM PO ; Start 01/14/17 at 09:00 Ondansetron HCl (Zofran Inj) 4 mg Q6H PRN IV NAUSEA AND/OR VOMITING; Start 01/14/17 at 06:30 Acetaminophen (Tylenol Tab) 650 mg Q6H PRN PO PAIN LEVEL 1-3 OR FEVER; Start 01/14/17 at 06:30 Acetaminophen/ Hydrocodone Bitart ([place] (5/325)) 1 tab Q6H PRN PO MODERATE PAIN LEVEL 4-6 Last administered on 01/14/17t 09:04; Admin Dose 1 TAB; Start at 06:30 Acetaminophen/ Hydrocodone Bitart ([place] (5/325)) 2 tab Q6H PRN PO SEVERE PAIN LEVEL 7-10; Start 01/14/17 at 06:30 Docusate Sodium (Colace) 100 mg Q12H PRN PO CONSTIPATION; Start 01/14/17 at 06: 30 Bisacodyl (Dulcolax) 5 mg DAILY PRN PO CONSTIPATION; Start 01/14/17 at 06:30 Enoxaparin Sodium (Lovenox) 30 mg DAILY SC ; Start 01/14/17 at 09:00 Procedures Procedures Laboratory Tests Test 01/14/17 04:00 White Blood Count 7.810^3/ul Red Blood Count 4.0910^6/ul Hemoglobin 12.1g/dl Hematocrit 37.4% Mean Corpuscular Volume 91.4fl Mean Corpuscular Hemoglobin 29.6pg Mean Corpuscular Hemoglobin Concent 32.4g/dl Red Cell Distribution Width 19.8% Platelet Count 44658^3/UL Mean Platelet Volume 9.9fl Neutrophils % 85.3% Lymphocytes % 10.1% Monocytes % 2.8% Eosinophils % 1.0% Basophils % 0.3% Nucleated Red Blood Cells % 0.0/100WBC Neutrophils # 6.710^3/ul Lymphocytes # 0.810^3/ul Monocytes # 0.210^3/ul Eosinophils # 0.110^3/ul Basophils # 0.010^3/ul Nucleated Red Blood Cells # 0.010^3/ul Sodium Level 143mmol/L Potassium Level 4.0mmol/L Chloride Level 105mmol/L Carbon Dioxide Level 28mmol/L Anion Gap 14 Blood Urea Nitrogen 15mg/dl Creatinine 0.77mg/dl Glucose Level 133mg/dl Calcium Level 9.5mg/dl Total Bilirubin 0.3mg/dl Direct Bilirubin 0.00mg/dl Indirect Bilirubin 0.3mg/dl Aspartate Amino Transf (AST/SGOT) 91IU/L Alanine Aminotransferase (ALT/SGPT) 27IU/L Alkaline Phosphatase 142IU/L Total Protein 7.9g/dl Albumin 3.8g/dl Globulin 4.10g/dl Albumin/Globulin Ratio 0.92 Lipase 88U/L PROCEDURE: CT abdomen and pelvis without intravenous contrast. CLINICAL INDICATION: Pain. TECHNIQUE: CT of the abdomen/pelvis was performed utilizing axial images with reconstructions in sagittal and coronal planes. The administered radiation dose is CTDI 9.5 mGy, DLP 575 mGy-cm. One or more of the following dose reduction techniques were used: automated exposure control, adjustment of the mA and/or kV according to patient size and/or use of iterative reconstruction technique. DICOM images are available. COMPARISON: 11/26/2016 FINDINGS: Visualized Chest: There are fractures within the left posterolateral 7th rib with some surrounding soft tissue and pleural thickening. There are likely some destructive changes within the rib. There is a 16 mm nodule within the visualized left breast. There is mild cardiomegaly. Coronary artery calcifications are noted. Abdomen: The spleen, pancreas, gallbladder,and adrenal glands are unremarkable. A large , mildly hypoattenuating mass is noted within the right hepatic lobe. This measures up to 10.8 x 11.4 cm in greatest axial dimensions. This has increased in size compared to the prior exam. The kidneys are without hydronephrosis. No definite urinary calculi are seen. Some sutures are noted along the distal ileum. There is no evidence of bowel obstruction. The appendix is not seen. There is no evidence of acute appendicitis. No intra-abdominal free air is seen. There is no evidence of intra-abdominal adenopathy or free fluid. Again seen is a 2.9 x 1 cm lesion within the deep subcutaneous fat within the right lower quadrant. This is unchanged compared to the prior examination.Vascular calcifications are noted within the aorta and its branches. Pelvis: There is no evidence of pelvic adenopathy. The uterus and ovaries are without enlargement. The urinary bladder is unremarkable. There is no pelvic free fluid. Osseous structures: In addition to the above described left seventh rib fractures. There is moderate compression deformity of the L5 vertebral body with a lucent lesion in the central aspect of the vertebral body. This has progressed compared to the prior exam. IMPRESSION: There is seen fractures of the left posterolateral 7th rib with some apparent destructive osseous changes, prominent surrounding soft tissue and adjacent pleural thickening. There is also new moderate compression deformity of the L5 vertebral body with an underlying lucent lesion. Findings are suggestive of neoplasm and pathologic fractures. 16 mm nodule within the left breast. Correlation with mammography is recommended. Large lesion within the right hepatic lobe which has increased in size compared to the prior examination and worrisome for neoplasm. Likely small subcutaneous seroma within the right lower quadrant abdominal wall. This is unchanged compared to the prior. RPTAT: HIKT .Alvarez Lopez MD, MD Date Time Electronically viewed and signed by .Alvarez Lopez MD, MD on 01/14/2017 04:44 .T/ CC: JACKIE BENAVIDES BOLATITO M. Jan 14, 2017 09:38
[2017-01-14] MEDS ORDERED: GABA300C PO (10:16)
[2017-01-14] MEDS ORDERED: ONDA4SOL2 PO (10:16)
[2017-01-14] MEDS: ENOXAPARIN 30 MG/0.3 ML SYG SC SCH (11:36)
[2017-01-14] MEDS: DOCUSATE SODIUM 250 MG CAP PO SCH (11:37)
[2017-01-14] MEDS: POLYETHYLENE GLYCOL 17 GM PACKET PO SCH (11:38)
[2017-01-14] MEDS: PREGABALIN 50 MG CAP PO SCH ×2 (13:06→20:50)
[2017-01-14 14:00] VITALS: BP 137/77; RESP 20
--- NOTE | 2017-01-14 15:05 | CONS ---
Date/Time of Note Date/Time of Note DATE: 01/14/17 TIME: 15:02 Assessment/Plan Assessment/Plan Chief Complaint/Hosp Course #STAGE III adenocarcinoma of rectum s/p neoadjuvant chemo/ rads, with ypT3N0 residual lesion -Pt just restarted 5fu/Avastin on 01/11. -we will add Irenotecan to next dose #RUQ pain -this is likely liver capsule pain from her growing hepatic mets -will add irinotecan as stated above to obtain a more robust chemotherapeutic response. hopefully this will cause tumor to shrink and alleviate some pain -MS contin 15mg BID and [place] was started #Neuropathy/ sciatica -Patient prescribed gabapentin 300 mg b.i.d. # L5 compression fracture -MRI of L-spine does not show any osseous metastasis #abdominal pain -Secondary to bloating and gas pain Gas pain as well as the fact of liver disease -We'll treat recurrent disease as stated above -Continue simethicone p.r.n. gas pain -Continue omeprazole #L Breast Mass -s/p bx on 03/20/16 which was benign #Thyroid nodule -bx done at [facility] which showed benign thyroid tissue A total of 40 minutes of face to face time was spentspeaking with the patient, of which greater than 50% was spent in counselingand coordination of care and the detailed question and answer session. Problems: Consultation Date/Type/Reason Admit Date/Time Jan 14, 2017 at 05:27 Date of Consultation: Jan 14, 2017 Type of Consultation: Oncology Reason for Consultation metastatic colon ca Referring Provider: BOLIVAR ULLOA of Present Illness Ms Sousa first presented to me in Mar 2016 after she was diagnosed with rectal cancer at [facility]. At [facility] pt had colonoscopy that revealed a mass at 25 cm that was obstructing. Pt was found also with microperforation. During this hospitalization she was treated for C diff. 03/2016 - CT A/P done at [facility] demonstrated a 1) 1.5cm mass in left breast 2) asymmetry and mucosal thickening at the distal sigmoid and proximal portion of the rectal ampulla. There is no enlarged periportal, retroperitoneal, mesenteric , pelvic sidewall, or inguinal lymphadenopathy 03/2016 - MRI of the pelvis was performed which demonstrated abnormal mural thickening involving the upper rectum over a length of 7 cm. The mass began approximately 13 cm from the anal verge. There is extension of tumor into the adjacent mesorectal thought with her bowel movements of the circumferential resection margin. 04/2016- 05/2016 - [place] neoad[place] 5040[place] 08/10/16 - PT underwent resection of rectosigmoid colon. Was found with adenocarcinoma, poorly differentiated circumferentially involving the rectum, 3.5 cm residual tumor. ypT3M0, 09/2016: underwent reversal of ostomy 11/07/16: patient started Xelox 11/25/16: CT of the abdomen and pelvis was done at [facility] which revealed masses within the right lobe of the liver measuring up to 8 cm concerning for metastatic disease which are new compared with her prior study. Also seen was a compression fracture at the L5 area -12/03/16 MRI confirms hepatic metastatic disease with predominant centrally necrotic lesion measuring 8.9 cm along with enlarged retroperitoneal lymph nodes. -01/11/17: pt received her first dose of 5fu + Avastin Pt now presents to [facility] with RUQ pain. CT A/P was done which revealed fractures of the left posterolateral 7th rib with some apparent destructive osseous changes, prominent surrounding soft tissue and adjacent pleural thickening. Also noted was increase in size of her liver mass. Pt ah since been started on Lyrica, Dilaudid and [place] for her pain. Constitutional: other (pain) Past Medical History Clinical hypothyroidism History of C. difficile Past Surgical History 08-10-16 rectosigmoid colon resection Appendectomy Breast surgery benign biopsy Cholecystectomy Tonsillectomy with benign FNA Family History Significant Family History: no pertinent family hx Social History Alcohol Use: none Smoking Status: Never smoker Drug Use: none Exam/Review of Systems Vital Signs Vitals Vital Signs Date Time Temp Pulse Resp B/P Pulse Ox O2 Delivery O2 Flow Rate FiO2 01/14/17 08:26 98.3 103 20 131/81 98 01/14/17 07:59 Room Air Exam Constitutional: alert, oriented Psych: no complaints Head: normocephalic ENMT: nl external ears & nose, nl lips & teeth Neck: non-tender, supple Respiratory: clear to auscultation Cardiovascular: nl pulses, regular rate and rhythm Gastrointestinal: soft, tender (in RUQ) Musculoskeletal: nl extremities to inspection Extremities: normal pulses Results Result Diagram: 01/14/17 0400 01/14/17 0400 Results 24 hrs Laboratory Tests Test 01/14/17 04:00 White Blood Count 7.8 # Red Blood Count 4.09 L Hemoglobin 12.1 Hematocrit 37.4 Mean Corpuscular Volume 91.4 Mean Corpuscular Hemoglobin 29.6 Mean Corpuscular Hemoglobin Concent 32.4 Red Cell Distribution Width 19.8 H Platelet Count 263 Mean Platelet Volume 9.9 Neutrophils % 85.3 H Lymphocytes % 10.1 L Monocytes % 2.8 Eosinophils % 1.0 Basophils % 0.3 Nucleated Red Blood Cells % 0.0 Neutrophils # 6.7 Lymphocytes # 0.8 Monocytes # 0.2 L Eosinophils # 0.1 Basophils # 0.0 Nucleated Red Blood Cells # 0.0 Sodium Level 143 Potassium Level 4.0 Chloride Level 105 Carbon Dioxide Level 28 Anion Gap 14 Blood Urea Nitrogen 15 Creatinine 0.77 Glucose Level 133 Calcium Level 9.5 Total Bilirubin 0.3 Direct Bilirubin 0.00 Indirect Bilirubin 0.3 Aspartate Amino Transf (AST/SGOT) 91 H Alanine Aminotransferase (ALT/SGPT) 27 Alkaline Phosphatase 142 H Total Protein 7.9 Albumin 3.8 Globulin 4.10 H Albumin/Globulin Ratio 0.92 Lipase 88 Medications Medications Current Medications Ondansetron HCl (Zofran Inj) 4 mg Q6H PRN IV NAUSEA AND/OR VOMITING; Start 01/14/17 at 06:30 Acetaminophen (Tylenol Tab) 650 mg Q6H PRN PO PAIN LEVEL 1-3 OR FEVER; Start 01/14/17 at 06:30 Acetaminophen/ Hydrocodone Bitart ([place] (5/325)) 1 tab Q6H PRN PO MODERATE PAIN LEVEL 4-6 Last administered on 01/14/17 09:04; Admin Dose 1 TAB; Start at 06:30 Acetaminophen/ Hydrocodone Bitart ([place] (5/325)) 2 tab Q6H PRN PO SEVERE PAIN LEVEL 7-10; Start 01/14/17 at 06:30 Bisacodyl (Dulcolax) 5 mg DAILY PRN PO CONSTIPATION; Start 01/14/17 at 06:30 Enoxaparin Sodium (Lovenox) 30 mg DAILY SC Last administered on 01/14/17 11:36 ; Admin Dose 30 MG; Start 01/14/17 at 09:00 Lorazepam (Ativan) 0.5 mg Q6H PRN IV anxiety; Start 01/14/17 at 09:30 Hydromorphone HCl (Dilaudid) 1 mg Q6H PRN IV pain; Start 01/14/17 at 10:00 Pregabalin (Lyrica) 50 mg TID PO Last administered on 01/14/17 13:06; Admin Dose 50 MG; Start 01/14/17 at 13:00 Docusate Sodium (Colace) 250 mg DAILY PO Last administered on 01/14/17 11:37; Admin Dose 250 MG; Start 01/14/17 at 10:00 Polyethylene Glycol (Miralax) 8.5 gm DAILY PO Last administered on 01/14/17 11 :38; Admin Dose 8.5 GM; Start 01/14/17 at 10:00 ANA SHARP M.D. Jan 14, 2017 15:05
[2017-01-14] MEDS ORDERED: HEPARIN (10 UNITS/ML) 5ML SYG ONE (15:47)
[2017-01-14] MEDS ORDERED: HYDROCODONE/APAP (10/325) TAB PO PRN (16:00)
[2017-01-14] MEDS: HYDROmorphONE 1 MG/ML SYG IV PRN (16:40)
[2017-01-14 20:00] VITALS: BP 135/79; RESP 19
[2017-01-14 20:29] VITALS: Ht 160 cm; Wt 63.0 kg
[2017-01-14] MEDS: morphine (ER) 15 MG TAB PO SCH (20:50)
[2017-01-15] MEDS: HYDROmorphONE 1 MG/ML SYG IV PRN (01:32)
[2017-01-15 02:00] VITALS: BP 132/82; RESP 19
[2017-01-15 08:26] VITALS: BP 138/68; RESP 18
[2017-01-15] MEDS: morphine (ER) 15 MG TAB PO SCH ×2 (08:40→20:48)
[2017-01-15] MEDS: PREGABALIN 50 MG CAP PO SCH ×3 (08:40→20:48)
[2017-01-15] MEDS: POLYETHYLENE GLYCOL 17 GM PACKET PO SCH (08:40)
[2017-01-15] MEDS: DOCUSATE SODIUM 250 MG CAP PO SCH (08:40)
[2017-01-15] MEDS: NACL 0.9% 3 ML SYG IV SCH (08:41)
[2017-01-15] MEDS: ENOXAPARIN 30 MG/0.3 ML SYG SC SCH (08:43)
--- NOTE | 2017-01-15 09:20 | CONS ---
Date/Time of Note Date/Time of Note DATE: 01/15/17 TIME: 09:12 Assessment/Plan Assessment/Plan Chief Complaint/Hosp Course #STAGE III adenocarcinoma of rectum s/p neoadjuvant chemo/ rads, with ypT3N0 residual lesion -Pt just restarted 5fu/Avastin on 01/11. -we will add Irenotecan to next dose #RUQ pain -pain has improved since yesterday -this is likely liver capsule pain from her growing hepatic mets -will add irinotecan as stated above to obtain a more robust chemotherapeutic response. hopefully this will cause tumor to shrink and alleviate some pain -MS Contin 15mg BID and [place] was started #Neuropathy/ sciatica -Patient in on Lyrica # L5 compression fracture -MRI of L-spine does not show any osseous metastasis #abdominal pain -Secondary to bloating and gas pain Gas pain as well as the fact of liver disease -We'll treat recurrent disease as stated above -Continue simethicone p.r.n. gas pain -Continue omeprazole #L Breast Mass -s/p bx on 03/20/16 which was benign #Thyroid nodule -bx done at [facility] which showed benign thyroid tissue A total of 40 minutes of face to face time was spentspeaking with the patient, of which greater than 50% was spent in counselingand coordination of care and the detailed question and answer session. Problems: Consultation Date/Type/Reason Admit Date/Time Jan 14, 2017 at 05:27 Initial Consult Date 01/14/17 Type of Consultation: Oncology Reason for Consultation colon cancer with liver mets Referring Provider: BOLIVAR ULLOA 24 HR Interval Summary Free Text/Dictation patient was started on MS Contin 15mg BID yesterday with norco. per daughter patient is having some signs of dementia Exam/Review of Systems Vital Signs Vitals Vital Signs Date Time Temp Pulse Resp B/P Pulse Ox O2 Delivery O2 Flow Rate FiO2 01/15/17 08:26 98.0 98 18 138/68 97 01/14/17 07:59 Room Air Intake and Output 01/14/17 01/14/17 01/15/17 14:59 22:59 06:59 Intake Total 500 ml 400 ml Output Total 650 ml Balance 500 ml -250 ml Exam Constitutional: alert, oriented Psych: no complaints Head: normocephalic Eyes: nl conjunctiva ENMT: nl external ears & nose Neck: non-tender, supple Respiratory: clear to auscultation Cardiovascular: regular rate and rhythm Gastrointestinal: soft, tender (RUQ) Musculoskeletal: nl extremities to inspection, nl gait and stance Extremities: normal pulses Neurological: focal weakness Skin: nl turgor Results Result Diagram: 01/14/1739901/14/170 Medications Medications Current Medications Ondansetron HCl (Zofran Inj) 4 mg Q6H PRN IV NAUSEA AND/OR VOMITING; Start 01/14/17 at 06:30 Acetaminophen (Tylenol Tab) 650 mg Q6H PRN PO PAIN LEVEL 1-3 OR FEVER; Start 01/14/17 at 06:30 Acetaminophen/ Hydrocodone Bitart ([place] (5/325)) 1 tab Q6H PRN PO MODERATE PAIN LEVEL 4-6 Last administered on 01/14/17 09:04; Admin Dose 1 TAB; Start at 06:30 Acetaminophen/ Hydrocodone Bitart ([place] (5/325)) 2 tab Q6H PRN PO SEVERE PAIN LEVEL 7-10; Start 01/14/17 at 06:30 Bisacodyl (Dulcolax) 5 mg DAILY PRN PO CONSTIPATION; Start 01/14/17 at 06:30 Enoxaparin Sodium (Lovenox) 30 mg DAILY SC Last administered on 01/15/17 08:43 ; Admin Dose 30 MG; Start 01/14/17 at 09:00 Lorazepam (Ativan) 0.5 mg Q6H PRN IV anxiety; Start 01/14/17 at 09:30 Hydromorphone HCl (Dilaudid) 1 mg Q6H PRN IV pain Last administered on 01:32; Admin Dose 1 MG; Start 01/14/17 at 10:00 Pregabalin (Lyrica) 50 mg TID PO Last administered on 01/15/17 08:40; Admin Dose 50 MG; Start 01/14/17 at 13:00 Docusate Sodium (Colace) 250 mg DAILY PO Last administered on 01/15/17 08:40; Admin Dose 250 MG; Start 01/14/17 at 10:00 Polyethylene Glycol (Miralax) 8.5 gm DAILY PO Last administered on 01/15/17 08 :40; Admin Dose 8.5 GM; Start 01/14/17 at 10:00 Morphine Sulfate (Ms Contin (Er)) 15 mg BID PO Last administered on 01/15/17 08:40; Admin Dose 15 MG; Start 01/14/17 at 21:00 Acetaminophen/ Hydrocodone Bitart ([place] (10/325)) 1 tab Q6H PRN PO pain; Start 01/14/17 at 16:00 ANA SHARP M.D. Jan 15, 2017 09:20
--- NOTE | 2017-01-15 10:00 | PN ---
Date/Time of Note Date/Time of Note DATE: 01/15/17 TIME: 09:58 Assessment/Plan VTE Prophylaxis VTE Prophylaxis Intervention: LMWH Lines/Catheters IV Catheter Type (from Nrsg): Saline Lock Assessment/Plan Assessment/Plan 61-year-old female who presents with severe right upper quadrant abdominal pain with known metastatic colon cancer found to have new rib fracture as well as lumbar compression fracture likely pathologic in origin from neoplasm as well as enlargement of metastatic liver nodule admitted for pain control and comfort. 2. Chemotherapy-induced neuropathy: Improving on Lyrica 3. L5 compression fracture: Per oncology, there has been no history of osseous metastasis. Fracture thought to be pathologic by radiology, we will review imaging with back surgeon, in the interim continue pain control. 4. Left breast mass status post outpatient biopsy in March which was benign oncology 5. Thyroid nodule which also has been biopsied as outpatient and found to be benign per oncology. PLAN: Continue current supportive care and try to modify pain regimen to oral based versus intravenous based.. Patient oncology might be discharging her tomorrow, in the interim we will also use plain Tylenol for his anti-inflammatory effect, encourage ambulation as much as possible. Oncology chemotherapy plan as noted, it seems like this to be pursued as outpatient, appreciate input. Plan of care has been discussed with patient and daughter in detail. (Daughter is a nurse and very well informed), questions answered and patient has verbalized understanding. Subjective 24 Hr Interval Summary Free Text/Dictation Patient is feeling much better in terms of pain in her right upper quadrant, but she is having a little bit of pain at the Port-A-Cath site just above her right clavicle Exam/Review of Systems Vital Signs Vitals Vital Signs Date Time Temp Pulse Resp B/P Pulse Ox O2 Delivery O2 Flow Rate FiO2 01/15/17 08:26 98.0 98 18 138/68 97 01/14/17 07:59 Room Air Intake and Output 01/14/17 01/14/17 01/15/17 15:00 23:00 07:00 Intake Total 500 ml 400 ml Output Total 650 ml Balance 500 ml -250 ml Exam Constitutional: alert, oriented, No distress Psych: nl mood/affect, No anxiety Head: normocephalic Eyes: PERRL ENMT: mucosa pink and moist Neck: supple Respiratory: clear to auscultation Cardiovascular: regular rate and rhythm Gastrointestinal: bowel sounds, soft, tender (very mildly tender still in RUQ) Extremities: No edema Neurological: nl mental status, nl speech Results Result Diagram: 01/14/170 01/14/17 0400 Medications Medications Current Medications Ondansetron HCl (Zofran Inj) 4 mg Q6H PRN IV NAUSEA AND/OR VOMITING; Start 01/14/17 at 06:30 Acetaminophen (Tylenol Tab) 650 mg Q6H PRN PO PAIN LEVEL 1-3 OR FEVER; Start 01/14/17 at 06:30 Acetaminophen/ Hydrocodone Bitart ([place] (5/325)) 1 tab Q6H PRN PO MODERATE PAIN LEVEL 4-6 Last administered on 01/14/17 09:04; Admin Dose 1 TAB; Start at 06:30 Acetaminophen/ Hydrocodone Bitart ([place] (5/325)) 2 tab Q6H PRN PO SEVERE PAIN LEVEL 7-10; Start 01/14/17 at 06:30 Bisacodyl (Dulcolax) 5 mg DAILY PRN PO CONSTIPATION; Start 01/14/17 at 06:30 Enoxaparin Sodium (Lovenox) 30 mg DAILY SC Last administered on 01/15/17 08:43 ; Admin Dose 30 MG; Start 01/14/17 at 09:00 Lorazepam (Ativan) 0.5 mg Q6H PRN IV anxiety; Start 01/14/17 at 09:30 Hydromorphone HCl (Dilaudid) 1 mg Q6H PRN IV pain Last administered on 01:32; Admin Dose 1 MG; Start 01/14/17 at 10:00 Pregabalin (Lyrica) 50 mg TID PO Last administered on 01/15/17 08:40; Admin Dose 50 MG; Start 01/14/17 at 13:00 Docusate Sodium (Colace) 250 mg DAILY PO Last administered on 01/15/17 08:40; Admin Dose 250 MG; Start 01/14/17 at 10:00 Polyethylene Glycol (Miralax) 8.5 gm DAILY PO Last administered on 01/15/17 08 :40; Admin Dose 8.5 GM; Start 01/14/17 at 10:00 Morphine Sulfate (Ms Contin (Er)) 15 mg BID PO Last administered on 01/15/17 08:40; Admin Dose 15 MG; Start 01/14/17 at 21:00 Acetaminophen/ Hydrocodone Bitart ([place] ()) 1 tab Q6H PRN PO pain; Start 01/14/17 at 16:00 BOLIVAR ULLOA Jan 15, 2017 10:00
[2017-01-15] MEDS: HYDROCODONE/APAP (5/325) TAB PO PRN ×2 (11:07→16:56)
[2017-01-15] MEDS ORDERED: ACETAMINOPHEN 325 MG TAB PO ONE (11:30)
[2017-01-15 20:13] VITALS: BP 143/73; RESP 18
[2017-01-15] MEDS: BISACODYL (EC) 5 MG TAB PO PRN (20:53)
[2017-01-16 02:37] VITALS: BP 156/81; RESP 16
[2017-01-16 08:24] VITALS: BP 148/69; RESP 18
[2017-01-16] MEDS: POLYETHYLENE GLYCOL 17 GM PACKET PO SCH (09:15)
[2017-01-16] MEDS: NACL 0.9% 3 ML SYG IV SCH (09:15)
[2017-01-16] MEDS: morphine (ER) 15 MG TAB PO SCH (09:15)
[2017-01-16] MEDS: DOCUSATE SODIUM 250 MG CAP PO SCH (09:15)
[2017-01-16] MEDS: PREGABALIN 50 MG CAP PO SCH ×2 (09:15→12:52)
[2017-01-16] MEDS: ENOXAPARIN 30 MG/0.3 ML SYG SC SCH (09:19)
--- NOTE | 2017-01-16 11:59 | CONS ---
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 -we will add Irenotecan to next dose #RUQ pain -pain has improved since yesterday -this is likely liver capsule pain from her growing hepatic mets -will add irinotecan as stated above to obtain a more robust chemotherapeutic response. hopefully this will cause tumor to shrink and alleviate some pain -MS Contin 15mg BID and [place] was started. patient's daughter does not want us to increase MS contin to 30 mg BID given her mom's gait imbalance from the narcotics #Neuropathy/ sciatica -Patient in on Lyrica # L5 compression fracture -MRI to be done today #abdominal pain -Secondary to bloating and gas pain Gas pain as well as the fact of liver disease -We'll treat recurrent disease as stated above -Continue simethicone p.r.n. gas pain -Continue omeprazole #L Breast Mass -s/p bx on 03/20/16 which was benign #Thyroid nodule -bx done at [facility] which showed benign thyroid tissue Problems: Consultation Date/Type/Reason Admit Date/Time Jan 14, 2017 at 05:27 Initial Consult Date 01/14/17 Type of Consultation: Oncology Reason for Consultation metastatic colon cancer Referring Provider: BOLIVAR ULLOA 24 HR Interval Summary Free Text/Dictation pt still with liver pain. pt to have MRI of spine done today Exam/Review of Systems Vital Signs Vitals Vital Signs Date Time Temp Pulse Resp B/P Pulse Ox O2 Delivery O2 Flow Rate FiO2 01/16/17 08:24 99.0 102 18 148/69 98 01/14/17 07:59 Room Air Intake and Output 01/15/17 01/15/17 01/16/17 15:00 23:00 07:00 Intake Total 720 ml 500 ml Balance 720 ml 500 ml Exam Constitutional: alert, oriented Psych: depression Head: normocephalic Eyes: nl conjunctiva ENMT: nl external ears & nose Neck: non-tender, supple Respiratory: clear to auscultation Cardiovascular: regular rate and rhythm Gastrointestinal: tender (over RUQ) Musculoskeletal: nl extremities to inspection Results Result Diagram: 01/14/17 0400 01/14/17 0400 Medications Medications Current Medications Ondansetron HCl (Zofran Inj) 4 mg Q6H PRN IV NAUSEA AND/OR VOMITING; Start 01/14/17 at 06:30 Acetaminophen (Tylenol Tab) 650 mg Q6H PRN PO PAIN LEVEL 1-3 OR FEVER; Start 01/14/17 at 06:30 Acetaminophen/ Hydrocodone Bitart ([place] (5/325)) 1 tab Q6H PRN PO MODERATE PAIN LEVEL 4-6 Last administered on 01/15/17 16:56; Admin Dose 1 TAB; Start at 06:30 Acetaminophen/ Hydrocodone Bitart ([place] (5/325)) 2 tab Q6H PRN PO SEVERE PAIN LEVEL 7-10; Start 01/14/17 at 06:30 Bisacodyl (Dulcolax) 5 mg DAILY PRN PO CONSTIPATION Last administered on 20:53; Admin Dose 5 MG; Start 01/14/17 at 06:30 Enoxaparin Sodium (Lovenox) 30 mg DAILY SC Last administered on 01/16/17 09:19 ; Admin Dose 30 MG; Start 01/14/17 at 09:00 Lorazepam (Ativan) 0.5 mg Q6H PRN IV anxiety; Start 01/14/17 at 09:30 Hydromorphone HCl (Dilaudid) 1 mg Q6H PRN IV pain Last administered on 01:32; Admin Dose 1 MG; Start 01/14/17 at 10:00 Pregabalin (Lyrica) 50 mg TID PO Last administered on 01/16/17 09:15; Admin Dose 50 MG; Start 01/14/17 at 13:00 Docusate Sodium (Colace) 250 mg DAILY PO Last administered on 01/16/17 09:15; Admin Dose 250 MG; Start 01/14/17 at 10:00 Polyethylene Glycol (Miralax) 8.5 gm DAILY PO Last administered on 01/16/17 09 :15; Admin Dose 8.5 GM; Start 01/14/17 at 10:00 Morphine Sulfate (Ms Contin (Er)) 15 mg BID PO Last administered on 12/6/17at 09:15; Admin Dose 15 MG; Start 01/14/17 at 21:00 Acetaminophen/ Hydrocodone Bitart ([place] (10/325)) 1 tab Q6H PRN PO pain; Start 01/14/17 at 16:00 ANA SHARP M.D. Jan 16, 2017 11:59
--- NOTE | 2017-01-16 12:50 | RADRPT ---
PROCEDURE: MRI lumbar spine CLINICAL INDICATION: History of colorectal carcinoma with L5 compression fracture noted on CT. TECHNIQUE: An MRI of the lumbar spine was performed on a 1.5 hillary scanner utilizing the following sequences: Sagittal and axial T1 weighted, sagittal and axial T2 weighted, and sagittal T2 weighte d with fat saturation. COMPARISON: CT abdomen and pelvis 01/14/2017 . Pelvic MRI 03/23/2016 FINDINGS: Pathologic compression fracture deformity of L5 with approximately 40% loss of vertebral body height centrally with invagination of L4 disc material within the superior endplate. Diffuse marrow replac ement compatible with metastatic disease. Left paravertebral tumor extension of 9 mm without evidenc e of epidural extension. Postcontrast imaging would be more sensitive for subtle epidural or soft ti ssue invasion There is a second vertebral body metastatic deposit visualized at L2 with signal hyperintensity as w ell as the posterior right iliac bone and sacral ala and left iliac bone. on T2 and signal loss on T 1. Soft tissue tumor extension is noted along the right posterior inferior iliac bone measuring appr oximately 4 x 2 cm in AP and transverse dimensions respectively. There is diffuse decreased marrow signal on all pulse sequences suggestive of the and red marrow con version likely secondary to chronic systemic stress and metastatic disease. Fatty replacement of the sacral vertebrae is noted compatible with a prior radiation therapy. The conus medullaris is visibl e at the T12-L1. level, and is normal in appearance. T12 - L1: Disc desiccation with preservation of disc height. Minimal circumferential disc bulging. The central canal and foramina are adequately patent. L1 - L2: Disc desiccation without loss of disc height. The central canal and foramina are adequate ly patent. L2 - L3: Disc desiccation and mild loss of disc height with minimal posterior disc bulging slightly asymmetric to the right. 3 mm right foraminal disc osteophyte complex resulting in mild right gregoria inal stenosis. No central canal or left foraminal stenosis. Small right facet joint effusion. L3 - L4: Disc desiccation without loss of disc height. Mild bilateral foraminal disc osteophyte com plex formation right greater than left resulting in mild to moderate right foraminal stenosis withou t central canal or left foraminal stenosis. Small bilateral facet joint effusions. L4 - L5: Disc desiccation with invagination of disc material into the superior endplate deformity o f L5. Circumferential disc bulging of approximately 3 mm with severe bilateral hypertrophic facet francoise int arthropathy and hypertrophy of ligamentum flavum resulting in mild bilateral inferior foraminal and mild to moderate subarticular recess stenosis. Severe central canal stenosis narrowing and theca l sac to 6 mm in AP dimension. L5 - S1: Pathologic compression fracture deformity as described in detail above. Disc desiccation a nd moderate circumferential disc bulging of 3-4 mm. Severe hypertrophic facet joint arthropathy. Mod erate to severe right foraminal stenosis concerning for exiting L5 nerve root impingement. Moderate left foraminal stenosis. Moderate to severe central canal stenosis. IMPRESSION: 1. Lumbar and sacral metastasis with the pathologic fracture deformity of L5 with left paraspinal so ft tissue extension of approximately 9 mm. No epidural extension. Moderate to severe right and moder ate left foraminal stenosis with moderate to severe central canal stenosis at L5-S1. 2. L2 vertebral body metastatic deposit and bilateral iliac and right sacroiliac metastatic deposit s. There is soft tissue extension into the posterior gluteal region of the right of approximately 4 x 2 cm as detailed above. 3. Multilevel degenerative disc bulging and degenerative facet joint arthropathy and enthesopathy r esulting in varying degrees of foraminal and central canal stenosis as detailed above. 4. Diffuse decreased marrow signal suggestive of red marrow conversion secondary to systemic stress and metastatic disease. Fatty replacement of the sacral marrow compatible with prior radiation thera py. 5. Postcontrast imaging may be helpful for further characterization of soft tissue extension. RPTAT: [facility] Physician Damian Date Time Electronically viewed and signed by Physician Damian on 01/16/2017 12:49 MCKENNA/
[2017-01-16] MEDS: BISACODYL (EC) 5 MG TAB PO PRN (12:52)
--- NOTE | 2017-01-16 14:35 | PN ---
Date/Time of Note Date/Time of Note DATE: 01/16/17 TIME: 14:23 Assessment/Plan VTE Prophylaxis VTE Prophylaxis Intervention: LMWH Lines/Catheters IV Catheter Type (from Nrsg): Saline Lock Assessment/Plan Assessment/Plan 61-year-old female who presents with severe right upper quadrant abdominal pain with known metastatic colon cancer found to have new rib fracture as well as lumbar compression fracture likely pathologic in origin from neoplasm as well as enlargement of metastatic liver nodule admitted for pain control and comfort. 2. Chemotherapy-induced neuropathy: Improving on Lyrica 3. L5 compression fracture: MRI reviewed with new evidence of bony metastases, 4. Left breast mass status post outpatient biopsy in March which was benign oncology 5. Thyroid nodule which also has been biopsied as outpatient and found to be benign per oncology. PLAN: Continue current supportive care and gently uptitrate morphine to improve pain control Calls have been placed out to oncology and neurosurgery to determine significance of MRI findings, will await their recs. Plan of care has been discussed with patient and daughter in detail. (Daughter is a nurse and very well informed), questions answered and patient has verbalized understanding. Subjective 24 Hr Interval Summary Free Text/Dictation Patient seen and examined. had MRI this am Having more pain likely from moving so much Exam/Review of Systems Vital Signs Vitals Vital Signs Date Time Temp Pulse Resp B/P Pulse Ox O2 Delivery O2 Flow Rate FiO2 01/16/17 08:24 99.0 102 18 148/69 98 01/14/17 07:59 Room Air Intake and Output 01/15/17 01/15/17 01/16/17 14:59 22:59 06:59 Intake Total 720 ml 500 ml Balance 720 ml 500 ml Exam Constitutional: alert, oriented, Mild distress Psych: nl mood/affect, No anxiety Head: normocephalic Eyes: PERRL ENMT: mucosa pink and moist Neck: supple Respiratory: clear to auscultation Cardiovascular: regular rate and rhythm Gastrointestinal: bowel sounds, soft, tender (very mildly tender still in RUQ) Extremities: No edema Neurological: nl mental status, nl speech Results Result Diagram: 01/14/170 01/14/17 0400 Medications Medications Current Medications Ondansetron HCl (Zofran Inj) 4 mg Q6H PRN IV NAUSEA AND/OR VOMITING; Start 01/14/17 at 06:30 Acetaminophen (Tylenol Tab) 650 mg Q6H PRN PO PAIN LEVEL 1-3 OR FEVER; Start 01/14/17 at 06:30 Acetaminophen/ Hydrocodone Bitart ([place] (5/325)) 1 tab Q6H PRN PO MODERATE PAIN LEVEL 4-6 Last administered on 01/15/17 16:56; Admin Dose 1 TAB; Start at 06:30 Acetaminophen/ Hydrocodone Bitart ([place] (5/325)) 2 tab Q6H PRN PO SEVERE PAIN LEVEL 7-10; Start 01/14/17 at 06:30 Bisacodyl (Dulcolax) 5 mg DAILY PRN PO CONSTIPATION Last administered on 12:52; Admin Dose 5 MG; Start 01/14/17 at 06:30 Enoxaparin Sodium (Lovenox) 30 mg DAILY SC Last administered on 01/16/17 09:19 ; Admin Dose 30 MG; Start 01/14/17 at 09:00 Lorazepam (Ativan) 0.5 mg Q6H PRN IV anxiety; Start 01/14/17 at 09:30 Hydromorphone HCl (Dilaudid) 1 mg Q6H PRN IV pain Last administered on 01:32; Admin Dose 1 MG; Start 01/14/17 at 10:00 Pregabalin (Lyrica) 50 mg TID PO Last administered on 01/16/17 12:52; Admin Dose 50 MG; Start 01/14/17 at 13:00 Docusate Sodium (Colace) 250 mg DAILY PO Last administered on 01/16/17 09:15; Admin Dose 250 MG; Start 01/14/17 at 10:00 Polyethylene Glycol (Miralax) 8.5 gm DAILY PO Last administered on 01/16/17 09 :15; Admin Dose 8.5 GM; Start 01/14/17 at 10:00 Morphine Sulfate (Ms Contin (Er)) 15 mg BID PO Last administered on 01/16/17 09:15; Admin Dose 15 MG; Start 01/14/17 at 21:00 Acetaminophen/ Hydrocodone Bitart ([place] (10/325)) 1 tab Q6H PRN PO pain; Start 01/14/17 at 16:00 Procedures Procedures PROCEDURE: MRI lumbar spine CLINICAL INDICATION: History of colorectal carcinoma with L5 compression fracture noted on CT. TECHNIQUE: An MRI of the lumbar spine was performed on a 1.5 hillary scanner utilizing the following sequences: Sagittal and axial T1 weighted, sagittal and axial T2 weighted, and sagittal T2 weighted with fat saturation. COMPARISON: CT abdomen and pelvis 01/14/2017 . Pelvic MRI 03/23/2016 FINDINGS: Pathologic compression fracture deformity of L5 with approximately 40% loss of vertebral body height centrally with invagination of L4 disc material within the superior endplate. Diffuse marrow replacement compatible with metastatic disease. Left paravertebral tumor extension of 9 mm without evidence of epidural extension. Postcontrast imaging would be more sensitive for subtle epidural or soft tissue invasion There is a second vertebral body metastatic deposit visualized at L2 with signal hyperintensity as well as the posterior right iliac bone and sacral ala and left iliac bone. on T2 and signal loss on T1. Soft tissue tumor extension is noted along the right posterior inferior iliac bone measuring approximately 4 x 2 cm in AP and transverse dimensions respectively. There is diffuse decreased marrow signal on all pulse sequences suggestive of the and red marrow conversion likely secondary to chronic systemic stress and metastatic disease. Fatty replacement of the sacral vertebrae is noted compatible with a prior radiation therapy. The conus medullaris is visible at the T12-L1. level, and is normal in appearance. T12 - L1: Disc desiccation with preservation of disc height. Minimal circumferential disc bulging. The central canal and foramina are adequately patent. L1 - L2: Disc desiccation without loss of disc height. The central canal and foramina are adequately patent. L2 - L3: Disc desiccation and mild loss of disc height with minimal posterior disc bulging slightly asymmetric to the right. 3 mm right foraminal disc osteophyte complex resulting in mild right foraminal stenosis. No central canal or left foraminal stenosis. Small right facet joint effusion. L3 - L4: Disc desiccation without loss of disc height. Mild bilateral foraminal disc osteophyte complex formation right greater than left resulting in mild to moderate right foraminal stenosis without central canal or left foraminal stenosis. Small bilateral facet joint effusions. L4 - L5: Disc desiccation with invagination of disc material into the superior endplate deformity of L5. Circumferential disc bulging of approximately 3 mm with severe bilateral hypertrophic facet joint arthropathy and hypertrophy of ligamentum flavum resulting in mild bilateral inferior foraminal and mild to moderate subarticular recess stenosis. Severe central canal stenosis narrowing and thecal sac to 6 mm in AP dimension. L5 - S1: Pathologic compression fracture deformity as described in detail above. Disc desiccation and moderate circumferential disc bulging of 3-4 mm. Severe hypertrophic facet joint arthropathy. Moderate to severe right foraminal stenosis concerning for exiting L5 nerve root impingement. Moderate left foraminal stenosis. Moderate to severe central canal stenosis. IMPRESSION: 1. Lumbar and sacral metastasis with the pathologic fracture deformity of L5 with left paraspinal soft tissue extension of approximately 9 mm. No epidural extension. Moderate to severe right and moderate left foraminal stenosis with moderate to severe central canal stenosis at L5-S1. 2. L2 vertebral body metastatic deposit and bilateral iliac and right sacroiliac metastatic deposits. There is soft tissue extension into the posterior gluteal region of the right of approximately 4 x 2 cm as detailed above. 3. Multilevel degenerative disc bulging and degenerative facet joint arthropathy and enthesopathy resulting in varying degrees of foraminal and central canal stenosis as detailed above. 4. Diffuse decreased marrow signal suggestive of red marrow conversion secondary to systemic stress and metastatic disease. Fatty replacement of the sacral marrow compatible with prior radiation therapy. 5. Postcontrast imaging may be helpful for further characterization of soft tissue extension. RPTAT: [facility] Physician Damian Date Time Electronically viewed and signed by Physician Damian on 01/16/2017 12:49 MCKENNA/ BOLIVAR ULLOA Jan 16, 2017 14:35
[2017-01-16 15:32] VITALS: BP 142/74; RESP 20
[2017-01-16] MEDS ORDERED: MORP15TA3 PO (16:08)
[2017-01-16] MEDS ORDERED: POLY17PO6 PO (16:08)
[2017-01-16] MEDS ORDERED: Hydrocodone/Apap (10/325) PO (16:08)
[2017-01-16] MEDS ORDERED: DOCU250C58 PO (16:08)
[2017-01-16] MEDS ORDERED: PREG50CA PO (16:08)
[2017-01-16] MEDS: HYDROCODONE/APAP (5/325) TAB PO PRN (18:25)
[2017-01-16] MEDS ORDERED: morphine (ER) 15 MG TAB PO SCH (21:00)
--- NOTE | 2017-01-17 09:06 | DS ---
Date/Time of Note Date/Time of Note DATE: 01/17/17 TIME: 08:58 Discharge Summary Admission/Discharge Info Admit Date/Time Jan 14, 2017 at 05:27 Discharge Date/Time Jan 16, 2017 at 18:30 Discharge Diagnosis 61-year-old female who presents with severe right upper quadrant abdominal pain with known metastatic colon cancer found to have new rib fracture as well as lumbar compression fracture likely pathologic in origin from neoplasm as well as enlargement of metastatic liver nodule admitted for pain control and comfort. 2. Chemotherapy-induced neuropathy: Improving on Lyrica 3. L5 compression fracture: MRI reviewed with new evidence of bony metastases, 4. Left breast mass status post outpatient biopsy in March which was benign oncology 5. Thyroid nodule which also has been biopsied as outpatient and found to be benign per oncology. Patient Condition: Stable Consults Oncology: ahsley Phone review with Neurosurgery, Dr Spence . Procedures See Hosp Course. . Hx of Present Illness This is a 61-year-old female with a history of metastatic colon cancer diagnosed earlier this year and was started on chemotherapy around April 2016. She had colon resection in June and ileostomy reversal a few months after that. Since then she has been resumed on chemo/treatment since October per family and has also had a Port-A-Cath placed. She presented to the emergency room today with severe right upper quadrant pain radiating from her right upper quadrant medially towards her belly button. The pain also radiates backwards towards her spine. 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 His pain however seems different from that. She has had no fever , as she has had irregular bowel movements. She denies dysuria, cough, headache. Her main issue is this severe right upper quadrant pain. A CT scan done upon presentation showed fractures in the left posterolateral 7 3 with destructive osseous changes and surrounding soft tissue and adjacent pleural thickening. He also showed a new compression deformity in the L5 vertebral body with an underlying lesion and findings are concerning for pathologic fractures from neoplasm. Patient was also noted to have a nodule in her left breast and a large lesion in her right hepatic lobe that has increased in size compared to the prior exam. All in all findings are concerning for progressing cancer despite treatment, so for now will be admitted for pain control and increasing patient's level of comfort while we await oncology review and recommendations in terms of definitive therapy. So far she had no dietary issues prior to admission. Patient received fentanyl, morphine, Dilaudid in the ER and felt relief for only about an hour until pain returned. Hospital Course 61-year-old female admitted because of severe right upper quadrant pain, worked up with CT scan of the abdomen and pelvis, found to have enlarging metastatic mass in the liver. Note is that patient has a history of metastatic colon cancer for which she has been getting outpatient chemotherapy and has also had one session of radiation therapy. Further workup concluded that source of her right upper quadrant pain was likely secondary to liver capsule pain from growing hepatic metastases, but she was also found to have osseous metastasis to her lumbar and sacral spine and an L5 compression fracture that was initially thought to be acute but upon further review especially with neurosurgery was found to be actually chronic. And she was mainly treated with for pain control, and once her pain was manageable on oral meds, she was discharged in stable condition after being cleared by oncology. The decision was made to switch her chemotherapy regimen, and this will continue to be instituted as outpatient. Home Meds Active Scripts Docusate Sodium* (Colace*) 250 Mg Capsule, 250 MG PO DAILY for 30 Days, #30 CAP Prov:BOLIVAR ULLOA. 01/16/17 Polyethylene Glycol* (Miralax*) 17 Gm Powd.pack, 8.5 GM PO DAILY for 30 Days, # 30 PACKET Prov:MAIDA ULLOAPjua Quintin. 01/16/17 Morphine Sulfate (Morphine Sulfate ER) 15 Mg Tablet.er, 15 MG PO TID, #90 TAB Prov:MAIDA ULLOAPuja QuintinRebecca 01/16/17 Pregabalin* (Lyrica*) 50 Mg Capsule, 50 MG PO TID, #90 CAP Prov:BOLIVAR ULLOARebecca 01/16/17 [Hydrocodone/Apap (10)] 1 TAB TAB No Conflict Check, 1 TAB PO Q6H Y for pain , #30 Prov:BOLIVAR ULLOARebecca 01/16/17 Reported Medications Ondansetron HCl (Zofran) 4 Mg/5 Ml Solution, 4 MG PO 01/14/17 Discontinued Reported Medications Gabapentin* (Neurontin*) 300 Mg Capsule, 300 MG PO BID, #60 CAP 01/14/17 Capecitabine* (Xeloda*) 500 Mg Tablet, 1000 MG PO QPM, TBS 12/18/16 Capecitabine* (Xeloda*) 500 Mg Tablet, 1500 MG PO QAM, TAB 12/18/16 Follow-up Plan Patient will continue outpatient follow-up with her own oncologist Dr. Stern, and she is encouraged to follow-up with her primary care physician within 1-2 weeks to notify them of new medication regimen. . Primary Care Provider Jesusita Lund Time spent on discharge: > 30 minutes BOLIVAR ULLOA Jan 17, 2017 09:06
== END 2017-01-16 18:30 | disposition home or self-care (01) ==
LOC: E/R 03:40 → PP2 05:27
PROVIDERS: ADMIT Family Medicine; ATTEND Family Medicine
DX: S22.31XA Fracture of one rib, right side, initial encounter for closed fracture (principal); C18.9 Malignant neoplasm of colon, unspecified; C78.7 Secondary malignant neoplasm of liver and intrahepatic bile duct; G62.0 Drug-induced polyneuropathy; M48.56XA Collapsed vertebra, not elsewhere classified, lumbar region, initial encounter for fracture; N63.0 Unspecified lump in unspecified breast; E04.1 Nontoxic single thyroid nodule; X58.XXXA Exposure to other specified factors, initial encounter; Y93.9 Activity, unspecified; Y99.9 Unspecified external cause status; Y92.9 Unspecified place or not applicable
CPT/HCPCS: 36415; 72148; 74176; 80053; 83690; 85025; 96374; 96375; 96376; 97163; J1170; J1642; J1650; J2060; J2270; J2405; J3010; J7030; Z7500; Z7502; Z7610; G0378